=== PATIENT | male | born 1975 | race Caucasian/White ===

== ENCOUNTER 2017-07-10 15:00 | Inpatient (IN) | payer OTHER ==
[2017-07-10] MEDS ORDERED: ONDANSETRON 4 MG/2 ML VIAL IVP STA (17:18)
[2017-07-10] MEDS ORDERED: SODIUM CHLORIDE 0.9% 1,000 ML IV STA (17:18)
[2017-07-10] MEDS ORDERED: HYDROmorphone 1 MG/ML 1 ML SYRINGE IVP STA (17:18)
[2017-07-10 17:47] LABS: Basophils # (A) 0.1 k/uL (0-0.2); Basophils % (A) 1 %; Eosinophils # (A) 0.3 k/uL (0-0.7); Eosinophils % (A) 3 %; HGB 16.6 gm/dL (13.0-17.5); Lymphocytes # (A) 2.2 k/uL (1.0-4.8); Lymphocytes % (A) 18 %; MCH 30.7 pg (25.0-35.0); MCHC 32.5 g/dL (31.0-37.0); MCV 94.5 fL (80.0-100.0); Mean Platelet Volume 7.1; Monocytes # (A) 0.5 k/uL (0-1.0); Monocytes % (A) 4 %; Neutrophils # (A) 8.8 k/uL (1.3-7.7); Neutrophils % (A) 73 %; Platelet Count 385 k/uL (150-450); RBC 5.39 m/uL (4.30-5.90); RDW 13.5 % (11.5-15.5); WBC 12.1 k/uL (3.8-10.6)
[2017-07-10 17:49] LABS: Appearance,Urine Clear (Clear); Bilirubin,Urine Negative (Negative); Blood,Urine Negative (Negative); Color,Urine Light Yellow; Glucose,Urine (UA) Negative (Negative); Ketones,Urine Negative (Negative); Leukocyte Esterase,Urine Negative (Negative); Nitrite,Urine Negative (Negative); PH, Urine 5.5 (5.0-8.0); Protein,Urine Negative (Negative); Specific Gravity,Urine 1.003 (1.001-1.035); Urobilinogen,Urine <2.0 mg/dL (<2.0)
[2017-07-10] MEDS ORDERED: RX INFO: IV CONTRAST WAS GIVEN 1 EACH MISC MISCELLANE PRN (17:51)
[2017-07-10 18:01] LABS: ALT 26 U/L (21-72); AST 19 U/L (17-59); Albumin 4.3 g/dL (3.5-5.0); Alkaline Phosphatase 64 U/L (38-126); Amylase 209 U/L (30-110); Anion Gap 6 mmol/L; Blood Urea Nitrogen 16 mg/dL (9-20); Calcium 10.1 mg/dL (8.4-10.2); Carbon Dioxide 28 mmol/L (22-30); Chloride 105 mmol/L (98-107); Glucose 91 mg/dL (74-99); Lipase 558 U/L (23-300); Potassium 5.4 mmol/L (3.5-5.1); Sodium 139 mmol/L (137-145); Total Bilirubin 0.5 mg/dL (0.2-1.3)
--- NOTE | 2017-07-10 18:16 | XR ---
EXAMINATION TYPE: XR KUB DATE OF EXAM: 07/10/2017 HISTORY: Pain with blood in stool COMPARISON: 05/15/2016 TECHNIQUE: 2 upright views FINDINGS: The visualized lung bases and pleural spaces and cardiac silhouette are unremarkable. There is no pneumoperitoneum, and no pneumatosis. There is no bowel obstruction. No evident viscerome [place]. The skeletal structures and soft tissues are unremarkable as seen. IMPRESSION: NO ACUTE PROCESS.
--- NOTE | 2017-07-10 18:34 | ED ---
Abdominal Pain HPI - General Chief Complaint: Abdominal Pain Stated Complaint: abdominal pain Time Seen by Provider: 07/10/17 17:05 Source: patient Mode of arrival: ambulatory Limitations: no limitations - History of Present Illness Initial Comments: 41-year-old male patient presented to the emergency department today for evaluation of left-sided abdominal pain. Patient states that the pain radiates from his lower abdomen up into his left upper quadrant near his ribs. He states that he has had this pain since this morning. He states that he is very nauseated however has not vomited. States that the pain is a burning, hot type pain. States that he is also had blood in his stool today. She has been having blood in his stool intermittently over the last year. States that today was bright red blood. States it filled the bowl. He denies any fevers or chills with this. Denies any dizziness or weakness. Patient denies any recent rash, shortness breath, chest pain, diarrhea, constipation, back pain, numbness , tingling, dizziness, weakness, hematuria, dysuria, urinary urgency, urinary frequency, headache, visual changes, or any other complaints. Denies any alcohol use, states he recently stopped smoking. - Related Data Home Medications Medication Instructions Recorded Confirmed Ibuprofen [Motrin] 600 mg PO Q8HR PRN 07/10/17 07/10/17 Allergies Allergy/AdvReac Type Severity Reaction Status Date / Time No Known Allergies Allergy Verified 07/10/17 17:41 Review of Systems ROS Statement: Those systems with pertinent positive or pertinent negative responses have been documented in the HPI. ROS Other: All systems not noted in ROS Statement are negative. Past Medical History Past Medical History: GERD/Reflux Additional Past Medical History / Comment(s): Traumatic pneumothorax History of Any Multi-Drug Resistant Organisms: None Reported Additional Past Surgical History / Comment(s): Right sided chest tube; thoravent Past Anesthesia/Blood Transfusion Reactions: No Reported Reaction Past Psychological History: Anxiety, Depression Smoking Status: Current every day smoker Past Alcohol Use History: None Reported Past Drug Use History: Marijuana - Past Family History Mother Family Medical History: Cancer Father Family Medical History: Cancer General Exam Limitations: no limitations General appearance: alert, in no apparent distress, other (This is a well- developed, well-nourished adult male patient in no acute distress. Vital signs upon presentation were temperature 98.0F, pulse 79, respirations 18, blood pressure 121/75, pulse ox 98% on room air.) Eye exam: Present: normal appearance, PERRL, EOMI. Absent: scleral icterus, conjunctival injection, periorbital swelling ENT exam: Present: normal exam, normal oropharynx, mucous membranes moist Respiratory exam: Present: normal lung sounds bilaterally. Absent: respiratory distress, wheezes, rales, rhonchi, stridor Cardiovascular Exam: Present: regular rate, normal rhythm, normal heart sounds. Absent: systolic murmur, diastolic murmur, rubs, gallop, clicks GI/Abdominal exam: Present: soft, tenderness (Left lower quadrant and left upper quadrant tenderness), normal bowel sounds. Absent: distended, guarding, rebound, rigid Neurological exam: Present: alert, oriented X3, CN II-XII intact Psychiatric exam: Present: normal affect, normal mood Skin exam: Present: warm, dry, intact, normal color. Absent: rash Course Vital Signs 07/10/17 07/10/17 16:04 17:54 Temperature 98 F Pulse Rate 79 86 Respiratory 18 16 Rate Blood Pressure 121/75 128/80 O2 Sat by Pulse 98 97 Oximetry Medical Decision Making - Medical Decision Making 41-year-old male patient presents to the emergency department today for evaluation of the left-sided abdominal pain, nausea, and blood in stool. Physical examination did reveal some left-sided abdominal tenderness, midepigastric abdominal tenderness. I did perform a rectal exam however there is not a good sample stool to be tested. X-ray of the abdomen showed overall nonobstructive bowel gas pattern. CT of the abdomen and pelvis showed no acute process. Labs reviewed and did reveal a lipase of 578 and elevated amylase. Patient will be admitted for acute pancreatitis. Labs be rechecked in the morning. IV hydration and pain management will be provided. He is nothing by mouth. Spoke to Cristy Morrell NP-morgan who is admitting for Dr. Mchugh. GI has been consulted. - Lab Data Result diagrams: 07/10/17 17:30 07/10/17 17:30 Lab Results 07/10/17 07/10/17 07/10/17 Range/Units 17:30 17:30 17:30 WBC 12.1 H (3.8-10.6) k/uL RBC 5.39 (4.30-5.90) m/uL Hgb 16.6 (13.0-17.5) gm/dL Hct 51.0 (39.0-53.0) % MCV 94.5 (80.0-100.0) fL MCH 30.7 (25.0-35.0) pg MCHC 32.5 (31.0-37.0) g/dL RDW 13.5 (11.5-15.5) % Plt Count 385 (150-450) k/uL Neutrophils % 73 % Lymphocytes % 18 % Monocytes % 4 % Eosinophils % 3 % Basophils % 1 % Neutrophils # 8.8 H (1.3-7.7) k/uL Lymphocytes # 2.2 (1.0-4.8) k/uL Monocytes # 0.5 (0-1.0) k/uL Eosinophils # 0.3 (0-0.7) k/uL Basophils # 0.1 (0-0.2) k/uL Sodium 139 (137-145) mmol/L Potassium 5.4 H (3.5-5.1) mmol/L Chloride 105 (98-107) mmol/L Carbon Dioxide 28 (22-30) mmol/L Anion Gap 6 mmol/L BUN 16 (9-20) mg/dL Creatinine 0.88 (0.66-1.25) mg/dL Est GFR (MDRD) Af Amer >60 (>60 ml/min/1.73 sqM) Est GFR (MDRD) Non-Af >60 (>60 ml/min/1.73 sqM) Glucose 91 (74-99) mg/dL Calcium 10.1 (8.4-10.2) mg/dL Total Bilirubin 0.5 (0.2-1.3) mg/dL AST 19 (17-59) U/L ALT 26 (21-72) U/L Alkaline Phosphatase 64 (38-126) U/L Total Protein 7.0 (6.3-8.2) g/dL Albumin 4.3 (3.5-5.0) g/dL Amylase 209 H (30-110) U/L Lipase 558 H (23-300) U/L Urine Color Light Yellow Urine Appearance Clear (Clear) Urine pH 5.5 (5.0-8.0) Ur Specific [place] 1.003 (1.001-1.035) Urine Protein Negative (Negative) Urine Glucose (UA) Negative (Negative) Urine Ketones Negative (Negative) Urine Blood Negative (Negative) Urine Nitrite Negative (Negative) Urine Bilirubin Negative (Negative) Urine Urobilinogen <2.0 (<2.0) mg/dL Ur Leukocyte Esterase Negative (Negative) Stool Occult Blood (Negative) 07/10/17 Range/Units 19:07 WBC (3.8-10.6) k/uL RBC (4.30-5.90) m/uL Hgb (13.0-17.5) gm/dL Hct (39.0-53.0) % MCV (80.0-100.0) fL MCH (25.0-35.0) pg MCHC (31.0-37.0) g/dL RDW (11.5-15.5) % Plt Count (150-450) k/uL Neutrophils % % Lymphocytes % % Monocytes % % Eosinophils % % Basophils % % Neutrophils # (1.3-7.7) k/uL Lymphocytes # (1.0-4.8) k/uL Monocytes # (0-1.0) k/uL Eosinophils # (0-0.7) k/uL Basophils # (0-0.2) k/uL Sodium (137-145) mmol/L Potassium (3.5-5.1) mmol/L Chloride (98-107) mmol/L Carbon Dioxide (22-30) mmol/L Anion Gap mmol/L BUN (9-20) mg/dL Creatinine (0.66-1.25) mg/dL Est GFR (MDRD) Af Amer (>60 ml/min/1.73 sqM) Est GFR (MDRD) Non-Af (>60 ml/min/1.73 sqM) Glucose (74-99) mg/dL Calcium (8.4-10.2) mg/dL Total Bilirubin (0.2-1.3) mg/dL AST (17-59) U/L ALT (21-72) U/L Alkaline Phosphatase (38-126) U/L Total Protein (6.3-8.2) g/dL Albumin (3.5-5.0) g/dL Amylase (30-110) U/L Lipase (23-300) U/L Urine Color Urine Appearance (Clear) Urine pH (5.0-8.0) Ur Specific [place] (1.001-1.035) Urine Protein (Negative) Urine Glucose (UA) (Negative) Urine Ketones (Negative) Urine Blood (Negative) Urine Nitrite (Negative) Urine Bilirubin (Negative) Urine Urobilinogen (<2.0) mg/dL Ur Leukocyte Esterase (Negative) Stool Occult Blood Negative (Negative) - Radiology Data Radiology results: report reviewed, image reviewed 2 views of the abdomen show no pneumoperitoneum, and no pneumatosis. There is no bowel obstruction. No evidence of visceromegaly. The skeletal structures and soft tissues are unremarkable as seen. Impression by Dr. Willoughby shows no acute process. CT of the abdomen and pelvis with contrast was obtained, report was reviewed in its entirety. Impression by Dr. Willoughby shows no acute process. No CT correlation for the patient's left-sided abdominal pain with nausea and vomiting of blood in stool. Disposition Clinical Impression: Pancreatitis, GI bleed Disposition: ADMITTED IP TO THIS [facility] Condition: Serious Referrals: Jack Villasenor MD [Primary Care Provider] - 1-2 days Decision to Admit Reason: Admit from EC Decision Date: 07/10/17 Decision Time: 19:30
--- NOTE | 2017-07-10 18:53 | CT ---
EXAMINATION TYPE: CT abdomen pelvis w con DATE OF EXAM: 07/10/2017 COMPARISON: 02/05/2016 HISTORY: Left sided abdominal pain with nausea, vomiting and blood in stool. CT DLP: 1303.00 mGycm Automated exposure control for dose reduction was used. TECHNIQUE: Helical acquisition of images was performed from the lung bases through the pelvis. CONTRAST: Performed without Oral Contrast and with IV Contrast, patient injected with 100 mL of Omnipaque 300. FINDINGS: LUNG BASES: No significant abnormality is appreciated. LIVER/GB: No significant abnormality is appreciated. PANCREAS: No significant abnormality is seen. SPLEEN: No significant abnormality is seen. ADRENALS: No significant abnormality is seen. KIDNEYS: No significant abnormality is seen. FREE AIR: No free air is visualized. RETROPERITONEAL ADENOPATHY: None visualized REPRODUCTIVE ORGANS: No significant abnormality is seen URINARY BLADDER: No significant abnormality is seen. PELVIC ADENOPATHY: None visualized. OSSEOUS STRUCTURES: No significant abnormality is seen. BOWEL: No significant abnormality is seen. OTHER: The vasculature is negative. Extraperitoneal spaces of the abdomen and pelvis are negative. IMPRESSION: NO ACUTE PROCESS; NO CT CORRELATE FOR THE PATIENT'S LEFT-SIDED ABDOMINAL PAIN WITH NAUSEA AND VOMITIN G AND BLOOD IN STOOL
[2017-07-10] MEDS ORDERED: NALOXONE 0.4 MG/ML 1 ML VIAL IV PRN (19:27)
[2017-07-10] MEDS ORDERED: ONDANSETRON 4 MG/2 ML VIAL IVP PRN (19:27)
[2017-07-10] MEDS: SODIUM CHLORIDE 0.9% 1,000 ML IV SCH (20:42)
[2017-07-10] MEDS: HYDROmorphone 2 MG/ML 1 ML SYRINGE IVP PRN (21:04)
[2017-07-11] MEDS: HYDROmorphone 2 MG/ML 1 ML SYRINGE IVP PRN ×7 (01:03→23:10)
[2017-07-11 07:16] LABS: Basophils # (A) 0.2 k/uL (0-0.2); Basophils % (A) 2 %; Eosinophils # (A) 0.5 k/uL (0-0.7); Eosinophils % (A) 5 %; HCT 45.6 % (39.0-53.0); HGB 14.6 gm/dL (13.0-17.5); Lymphocytes # (A) 3.2 k/uL (1.0-4.8); Lymphocytes % (A) 34 %; MCH 30.9 pg (25.0-35.0); MCHC 32.1 g/dL (31.0-37.0); MCV 96.4 fL (80.0-100.0); Mean Platelet Volume 7.1; Monocytes # (A) 0.5 k/uL (0-1.0); Monocytes % (A) 5 %; Neutrophils # (A) 4.9 k/uL (1.3-7.7); Neutrophils % (A) 52 %; Platelet Count 322 k/uL (150-450); RBC 4.73 m/uL (4.30-5.90); RDW 13.6 % (11.5-15.5); WBC 9.4 k/uL (3.8-10.6)
[2017-07-11 07:22] LABS: ALT 26 U/L (21-72); AST 14 U/L (17-59); Albumin 3.2 g/dL (3.5-5.0); Alkaline Phosphatase 46 U/L (38-126); Anion Gap 5 mmol/L; Blood Urea Nitrogen 13 mg/dL (9-20); Calcium 8.9 mg/dL (8.4-10.2); Carbon Dioxide 28 mmol/L (22-30); Chloride 108 mmol/L (98-107); Glucose 78 mg/dL (74-99); Potassium 4.4 mmol/L (3.5-5.1); Sodium 141 mmol/L (137-145); Total Bilirubin 0.6 mg/dL (0.2-1.3); Total Protein 5.4 g/dL (6.3-8.2)
[2017-07-11 07:48] LABS: Lipase 2988 U/L (23-300)
[2017-07-11 07:50] LABS: Amylase 376 U/L (30-110)
[2017-07-11] MEDS: SODIUM CHLORIDE 0.9% 1,000 ML IV SCH ×4 (09:47→22:33)
--- NOTE | 2017-07-11 11:01 | P.CONS ---
History of Present Illness - Reason for Consult Consult date: 07/11/17 Pancreatitis Requesting physician: Chyna Mchugh - Chief Complaint Abdominal pain - History of Present Illness 41-year-old gentleman with no significant past medical or surgical history presents with acute abdominal pain mostly in the mid to upper abdomen extending to the left side. Pain came on suddenly yesterday morning awakened him from his sleep. Intermittent nausea no emesis. Additionally patient has been reporting intermittent blood-tinged stools for more than 6 months. Bowel movement 2 days ago with blood tinged even on toilet tissue. No aspirin. Occasional Motrin 800 mg as needed for chronic back pain but does not take on a daily basis. Denies melena or hematemesis. No fever or chills. Patient has had similar attacks of this type of pain in the past but not this severe. Intermittent indigestion occasional [id number] Zantac as needed. No history of peptic ulcer disease, EGD, or colonoscopy. CT abdomen and pelvis reported no significant abnormality of the liver gallbladder pancreas or spleen. Admission amylase 209 presently 376 per lipase 558 presently 2988. LFTs unremarkable. BUN 13. Creatinine 0.8. Hemoglobin 14.6. White count 12.1 presently 9.4. Stool occult blood negative. No history of documented pancreatitis or EtOH abuse no history of autoimmune disorders. No changes in medications. Review of Systems Constitutional: Denies fever, chills, sweats, weight gain, or loss. HEENT: Negative for migraines, blurred vision or loss, earaches, drainage, tinnitus, oral mucosal lesions, dysphagia, or odynophagia. Cardiac: Negative for chest pain, arrhythmias, or palpitation. Respiratory: Negative for shortness of breath, hemoptysis, cough, or sputum production. Gastrointestinal: See HPI for pertinent findings. Genitourinary: Negative for hematuria, urgency, frequency, polyuria, dysuria, or penile discharge. Musculoskeletal: Negative for muscle aches, swelling, arthritis, and arthralgias. Neurologic: Negative for stroke or TIA. Endocrine: Negative for thyroid problems. Skin: Negative for rash or itching. Psychiatric: Negative history for depression and anxiety Past Medical History Past Medical History: GERD/Reflux Additional Past Medical History / Comment(s): Traumatic pneumothorax History of Any Multi-Drug Resistant Organisms: None Reported Additional Past Surgical History / Comment(s): Right sided chest tube; thoravent Past Anesthesia/Blood Transfusion Reactions: No Reported Reaction Past Psychological History: Anxiety, Depression Smoking Status: Current every day smoker Past Alcohol Use History: None Reported Past Drug Use History: Marijuana Additional Drug Use History / Comment(s): patient states he smoke 4 joints a day. - Past Family History Mother Family Medical History: Cancer Father Family Medical History: Cancer Medications and Allergies Home Medications Medication Instructions Recorded Confirmed Type Ibuprofen [Motrin] 600 mg PO Q8HR PRN 07/10/17 07/10/17 History Allergies Allergy/AdvReac Type Severity Reaction Status Date / Time No Known Allergies Allergy Verified 07/10/17 17:41 Physical Exam Vitals: Vital Signs Temp Pulse Pulse Resp BP BP Pulse Ox 07/11/17 08:00 16 07/11/17 07:47 97.0 F L 57 L 16 118/75 99 07/11/17 00:15 97.7 F 57 L 16 116/77 98 07/11/17 00:00 57 L 16 07/10/17 22:00 63 16 07/10/17 21:00 97.4 F L 63 16 122/85 93 L 07/10/17 20:33 97.0 F L 63 16 123/79 98 07/10/17 19:45 98.7 F 65 18 124/78 100 07/10/17 17:54 86 16 128/80 97 07/10/17 16:04 98 F 79 18 121/75 98 Intake and Output 07/10/17 07/11/17 07/11/17 22:59 06:59 14:59 Intake Total 1599 900 Output Total 260 Balance 1599 640 Intake: Intake, IV Titration 1599 900 Amount Sodium Chloride 0.9% 1, 600 900 000 ml @ 150 mls/hr IV . Q6H40M [facility] Rx#:[id number] Sodium Chloride 0.9% 1, 999 000 ml @ 999 mls/hr IV . Q1H1M [facility] Rx#:[id number] Output: Urine 260 Other: Voiding Method Toilet Toilet Toilet # Voids 1 1 Weight 77.111 kg General appearance: The patient is alert, oriented, in no acute distress. HET: Head is normocephalic and atraumatic. Pupils are equal and reactive. Oropharynx is clear without lesions. Neck: Supple without lymphadenopathy. Trachea midline. Heart: S1 S2. Regular rate and rhythm. Lungs: No crackles or wheezes are heard. Abdomen: Soft, mild to moderate tenderness midepigastrium left upper quadrant, nondistended with bowel sounds. No peritoneal signs. No palpable organomegaly or masses. Extremities: Normal skin color and turgor. No cyanosis, rash, ulceration, clubbing, or edema. Radial and pedal pulses are 2/4 bilaterally. Neurological: No focal deficits. Strength and sensation are grossly intact. Results CBC & Chem 7: 07/11/17 06:27 07/11/17 06:27 Labs: Abnormal Lab Results - Last 24 Hours (Table) 07/10/17 07/10/17 07/11/17 Range/Units 17:30 17:30 06:27 WBC 12.1 H (3.8-10.6) k/uL Neutrophils # 8.8 H (1.3-7.7) k/uL Potassium 5.4 H (3.5-5.1) mmol/L Chloride 108 H (98-107) mmol/L AST 14 L (17-59) U/L Total Protein 5.4 L (6.3-8.2) g/dL Albumin 3.2 L (3.5-5.0) g/dL Amylase 209 H 376 H* (30-110) U/L Lipase 558 H 2988 H (23-300) U/L CT scan - abdomen: report reviewed (Dr. Mckoy) Assessment and Plan (1) Pancreatitis Narrative/Plan: Etiology unclear. CT imaging did not mention cholelithiasis. Possible autoimmune possible idiopathic possible penetrating peptic ulcer disease within the differential with reports of blood-tinged bowel movements. Current Visit: Yes Status: Acute Code(s): K85.90 - ACUTE PANCREATITIS WITHOUT NECROSIS OR INFECTION, UNSP SNOMED Code(s): 56450213 (2) Hematochezia Narrative/Plan: Possible perirectal possible colonic possible upper GI source Current Visit: Yes Status: Acute Code(s): K92.1 - MELENA SNOMED Code(s): 140448297 (3) GI bleed Current Visit: Yes Status: Acute Code(s): K92.2 - GASTROINTESTINAL HEMORRHAGE, UNSPECIFIED SNOMED Code(s): 29246936 Plan: 1. IV hydration normal saline 150 mL an hour. Ultrasound abdomen today. 2. Protonix 40 mg IV every 12. 3. Will obtain a triglyceride level, CHIN, and IgG subclass 1-4. 4. Nothing by mouth except medications few ice chips. 5. EGD was discussed planned in the next 24-48 hours contingent on improvement of pancreatic enzymes. 6. In regards to reported hematochezia colonoscopy was discussed but further recommendations forthcoming after upper endoscopy is completed. The community support professional has discussed the risks, benefits and alternative therapies for the above-mentioned procedure and for both sedation/analgesia as well as necessary blood product administration, if indicated, as they pertain to this patient. The patient has indicated understanding and acceptance of the risks and procedures discussed. Thank you for this kind referral and the opportunity to participate in the care of your patient. This consultation was discussed with Dr. Mckoy. The impression and plan of care have been directed as dictated.
--- NOTE | 2017-07-11 11:54 | US ---
EXAMINATION TYPE: US abdomen limited DATE OF EXAM: 07/11/2017 COMPARISON: CT abdomen and pelvis from yesterday. CLINICAL HISTORY: pancreatitis. epigastric pain EXAM MEASUREMENTS: Liver Length: 13.6 cm Gallbladder Wall: 0.3 cm CBD: 0.3 cm Right Kidney: 10.4 x 4.7 x 4.9 cm Pancreas: not visualized due to midline bowel gas Liver: wnl Gallbladder: No stones seen Evidence for sonographic Doty's sign: No CBD: wnl Right Kidney: No hydronephrosis or masses seen IMPRESSION: Suboptimal evaluation of pancreas otherwise unremarkable study. Pancreas noted appeared w ithin normal limits on CT one day earlier.
[2017-07-11] MEDS: PANTOPRAZOLE 40 MG/10 ML VIAL IVP SCH ×2 (12:52→22:25)
[2017-07-11] MEDS ORDERED: VANCOMYCIN 1,000 MG in SODIUM CHLORIDE 0.9% 250 ML IVPB ONE (15:22)
[2017-07-11] MEDS ORDERED: VANCOMYCIN IV PER PHARMACY 1 EACH MISC MISCELLANE PRN (15:23)
[2017-07-11] MEDS: VANCOMYCIN 1,500 MG in SODIUM CHLORIDE 0.9% 250 ML IVPB SCH ×2 (16:08→23:10)
--- NOTE | 2017-07-11 17:32 | P.HPIM ---
History of Present Illness 41-year-old gentleman with no significant past medical or surgical history presents with acute abdominal pain mostly in the mid to upper abdomen extending to the left side. Pain came on suddenly yesterday morning awakened him from his sleep. Intermittent nausea no emesis. Patient does take ibuprofen and patient denied any blood in the stools yesterday and today day before patient had a miguel blood in the stools although his hemoglobin remained stable at around 14 patient had some hemodiluted affect and his hemoglobin did drop from 16-14 yesterday patient had elevated lipase because of which patient was admitted for pancreatitis patient ultrasound is negative for any cholelithiasis gastroneurology evaluated the patient patient is on Protonix in the recommending upper GI endoscopy and colonoscopy tomorrow morning. Patient is complaining of on and off nausea for few days Review of Systems REVIEW OF SYSTEMS: CONSTITUTIONAL: No fever, no malaise, no fatigue. HEENT: No recent visual problems or hearing problems. Denied any sore throat. CARDIOVASCULAR: No chest pain, orthopnea, PND, no palpitations, no syncope. PULMONARY: No shortness of breath, no cough, no hemoptysis. GASTROINTESTINAL: As mentioned in HPI NEUROLOGICAL: No headaches, no weakness, no numbness. HEMATOLOGICAL: Denies any bleeding or petechiae. GENITOURINARY: Denies any burning micturition, frequency, or urgency. MUSCULOSKELETAL/RHEUMATOLOGICAL: Denies any joint pain, swelling, or any muscle pain. ENDOCRINE: Denies any polyuria or polydipsia. The rest of the 14-point review of systems is negative. Past Medical History Past Medical History: GERD/Reflux Additional Past Medical History / Comment(s): Traumatic pneumothorax History of Any Multi-Drug Resistant Organisms: None Reported Additional Past Surgical History / Comment(s): Right sided chest tube; thoravent Past Anesthesia/Blood Transfusion Reactions: No Reported Reaction Past Psychological History: Anxiety, Depression Smoking Status: Current every day smoker Past Alcohol Use History: None Reported Past Drug Use History: Marijuana Additional Drug Use History / Comment(s): patient states he smoke 4 joints a day. - Past Family History Mother Family Medical History: Cancer Father Family Medical History: Cancer Medications and Allergies Home Medications Medication Instructions Recorded Confirmed Type Ibuprofen [Motrin] 600 mg PO Q8HR PRN 07/10/17 07/10/17 History Allergies Allergy/AdvReac Type Severity Reaction Status Date / Time No Known Allergies Allergy Verified 07/10/17 17:41 Physical Exam Vitals: Vital Signs Temp Pulse Pulse Resp BP BP Pulse Ox 07/11/17 14:44 97.6 F 54 L 16 134/91 98 07/11/17 08:00 16 07/11/17 07:47 97.0 F L 57 L 16 118/75 99 07/11/17 00:15 97.7 F 57 L 16 116/77 98 07/11/17 00:00 57 L 16 07/10/17 22:00 63 16 07/10/17 21:00 97.4 F L 63 16 122/85 93 L 07/10/17 20:33 97.0 F L 63 16 123/79 98 07/10/17 19:45 98.7 F 65 18 124/78 100 07/10/17 17:54 86 16 128/80 97 Intake and Output 07/11/17 07/11/17 07/11/17 06:59 14:59 22:59 Intake Total 900 1200 Output Total 260 Balance 640 1200 Intake: IV 1200 Sodium Chloride 0.9% 1, 1200 000 ml @ 150 mls/hr IV . Q6H40M [facility] Rx#:[id number] Intake, IV Titration 900 Amount Sodium Chloride 0.9% 1, 900 000 ml @ 150 mls/hr IV . Q6H40M [facility] Rx#:[id number] Output: Urine 260 Other: Voiding Method Toilet Toilet # Voids 1 2 PHYSICAL EXAMINATION: GENERAL: The patient is alert and oriented x3, not in any acute distress. Well developed, well nourished. HEENT: Pupils are round and equally reacting to light. EOMI. No scleral icterus. No conjunctival pallor. Normocephalic, atraumatic. No pharyngeal erythema. No thyromegaly. CARDIOVASCULAR: S1 and S2 present. No murmurs, rubs, or gallops. PULMONARY: Chest is clear to auscultation, no wheezing or crackles. ABDOMEN: Soft, nontender, nondistended, normoactive bowel sounds. No palpable organomegaly. MUSCULOSKELETAL: No joint swelling or deformity. EXTREMITIES: No cyanosis, clubbing, or pedal edema. NEUROLOGICAL: Gross neurological examination did not reveal any focal deficits. SKIN: No rashes. Results CBC & Chem 7: 07/11/17 06:27 07/11/17 06:27 Labs: Abnormal Lab Results - Last 24 Hours (Table) 07/10/17 07/10/17 07/11/17 Range/Units 17:30 17:30 06:27 WBC 12.1 H (3.8-10.6) k/uL Neutrophils # 8.8 H (1.3-7.7) k/uL Potassium 5.4 H (3.5-5.1) mmol/L Chloride 108 H (98-107) mmol/L AST 14 L (17-59) U/L Total Protein 5.4 L (6.3-8.2) g/dL Albumin 3.2 L (3.5-5.0) g/dL Amylase 209 H 376 H* (30-110) U/L Lipase 558 H 2988 H (23-300) U/L Microbiology - Last 24 Hours (Table) 07/10/17 17:30 Blood Culture Gram Stain - Preliminary Blood 07/10/17 17:30 Blood Culture - Final Blood Thrombosis Risk Factor Assmnt - Choose All That Apply Any of the Below Risk Factors Present?: No Other Risk Factors: No Thrombosis Risk Factor Assessment Level: Very Low Risk Assessment and Plan Plan: -Pancreatitis: Idiopathic in nature patient is not an alcoholic. -Possibility of peptic ulcer disease for which patient will undergo upper GI endoscopy -GI bleed: Mostly upper
[2017-07-12] MEDS: HYDROmorphone 2 MG/ML 1 ML SYRINGE IVP PRN ×6 (02:30→22:44)
[2017-07-12] MEDS: SODIUM CHLORIDE 0.9% 1,000 ML IV SCH ×3 (02:31→17:16)
[2017-07-12 06:57] LABS: Basophils # (A) 0.1 k/uL (0-0.2); Basophils % (A) 1 %; Eosinophils # (A) 0.4 k/uL (0-0.7); Eosinophils % (A) 4 %; HCT 42.6 % (39.0-53.0); HGB 14.1 gm/dL (13.0-17.5); Lymphocytes # (A) 2.5 k/uL (1.0-4.8); Lymphocytes % (A) 28 %; MCH 30.7 pg (25.0-35.0); MCHC 33.1 g/dL (31.0-37.0); MCV 92.7 fL (80.0-100.0); Mean Platelet Volume 7.1; Monocytes # (A) 0.4 k/uL (0-1.0); Monocytes % (A) 5 %; Neutrophils # (A) 5.4 k/uL (1.3-7.7); Neutrophils % (A) 61 %; Platelet Count 320 k/uL (150-450); RDW 13.1 % (11.5-15.5); WBC 8.8 k/uL (3.8-10.6)
[2017-07-12 07:11] LABS: ALT 23 U/L (21-72); AST 15 U/L (17-59); Albumin 3.2 g/dL (3.5-5.0); Alkaline Phosphatase 47 U/L (38-126); Amylase 95 U/L (30-110); Anion Gap 4 mmol/L; Blood Urea Nitrogen 10 mg/dL (9-20); Carbon Dioxide 28 mmol/L (22-30); Chloride 108 mmol/L (98-107); Glucose 77 mg/dL (74-99); Lipase 100 U/L (23-300); Potassium 4.6 mmol/L (3.5-5.1); Sodium 140 mmol/L (137-145); Total Bilirubin 0.8 mg/dL (0.2-1.3); Total Protein 5.4 g/dL (6.3-8.2)
[2017-07-12] MEDS: VANCOMYCIN 1,500 MG in SODIUM CHLORIDE 0.9% 250 ML IVPB SCH ×3 (09:10→23:43)
[2017-07-12] MEDS: PANTOPRAZOLE 40 MG/10 ML VIAL IVP SCH ×2 (09:10→22:43)
[2017-07-12 10:32] LABS: IgG Subclass 4 26.3 mg/dL (3.0-175.0)
--- NOTE | 2017-07-12 12:12 | P.PN ---
Subjective Progress Note Date: 07/12/17 Principal diagnosis: Acute pancreatitis 41-year-old male admitted with acute pancreatitis intermittent rectal bleeding of unclear etiology. CHIN screen negative. Pancreatic enzymes normalized. LFTs unremarkable. Abdominal pain improved. Blood cultures preliminary colitis was negative staph. Afebrile. Triglycerides 137. Ultrasound abdomen no stones. Pancreas appeared normal Objective - Vital Signs Vital signs: Vital Signs Temp 98.2 F 07/12/17 07:25 Pulse 54 L 07/12/17 07:25 Resp 16 07/12/17 08:00 BP 125/83 07/12/17 07:25 Pulse Ox 99 07/12/17 07:25 Intake & Output 07/11/17 07/12/17 07/12/17 18:59 06:59 18:59 Intake Total 1200 2400 Output Total 375 Balance 1200 2024 Intake: IV 1200 2400 Sodium Chloride 0.9% 1, 1200 2400 000 ml @ 150 mls/hr IV . Q6H40M [facility] Rx#:[id number] Output: Urine 375 Other: Voiding Method Toilet Toilet Urinal Urinal # Voids 2 3 - Exam General appearance: The patient is alert, oriented, in no acute distress. HET: Head is normocephalic and atraumatic. Pupils are equal and reactive. Oropharynx is clear without lesions. Neck: Supple without lymphadenopathy. Trachea midline. Heart: S1 S2. Regular rate and rhythm. Lungs: No crackles or wheezes are heard. Abdomen: Soft, mild diffuse tenderness upper abdomen, nondistended with bowel sounds. No peritoneal signs. No palpable organomegaly or masses. Extremities: Normal skin color and turgor. No cyanosis, rash, ulceration, clubbing, or edema. Radial and pedal pulses are 2/4 bilaterally. Neurological: No focal deficits. Strength and sensation are grossly intact. - Labs CBC & Chem 7: 07/12/17 06:36 07/12/17 06:36 Labs: Abnormal Lab Results - Last 24 Hours (Table) 07/12/17 Range/Units 06:36 Chloride 108 H (98-107) mmol/L AST 15 L (17-59) U/L Total Protein 5.4 L (6.3-8.2) g/dL Albumin 3.2 L (3.5-5.0) g/dL Microbiology - Last 24 Hours (Table) 07/10/17 17:30 Blood Culture Gram Stain - Preliminary Blood Blood Culture - Preliminary Coagulase Negative Staph 07/10/17 17:30 Blood Culture - Final Blood Assessment and Plan (1) Pancreatitis Narrative/Plan: Etiology unclear. CT imaging did not mention cholelithiasis. Possible autoimmune possible idiopathic possible penetrating peptic ulcer disease within the differential with reports of blood-tinged bowel movements. Current Visit: Yes Status: Acute Code(s): K85.90 - ACUTE PANCREATITIS WITHOUT NECROSIS OR INFECTION, UNSP SNOMED Code(s): 89607708 (2) Hematochezia Narrative/Plan: Possible perirectal possible colonic possible upper GI source Current Visit: Yes Status: Acute Code(s): K92.1 - MELENA SNOMED Code(s): 746524317 (3) GI bleed Current Visit: Yes Status: Acute Code(s): K92.2 - GASTROINTESTINAL HEMORRHAGE, UNSPECIFIED SNOMED Code(s): 58175471 Plan: 1. Will initiate low-fat diet patient is requesting diet and is hungry. 2. EGD evaluation tomorrow rule out peptic ulcer disease. 3. Continue supportive measures GI prophylaxis. The medication assistant has discussed the risks, benefits and alternative therapies for the above-mentioned procedure and for both sedation/analgesia as well as necessary blood product administration, if indicated, as they pertain to this patient. The patient has indicated understanding and acceptance of the risks and procedures discussed. Assessment and plan a care discussed with Dr. Mckoy
[2017-07-13] MEDS: SODIUM CHLORIDE 0.9% 1,000 ML IV SCH ×2 (02:26→11:29)
[2017-07-13] MEDS: HYDROmorphone 2 MG/ML 1 ML SYRINGE IVP PRN ×3 (05:08→15:11)
[2017-07-13] MEDS ORDERED: VANCOMYCIN TROUGH DUE 1 EACH MISC MISCELLANE ONE (07:00)
[2017-07-13 07:43] LABS: Anion Gap 8 mmol/L; Blood Urea Nitrogen 12 mg/dL (9-20); Calcium 8.9 mg/dL (8.4-10.2); Carbon Dioxide 26 mmol/L (22-30); Chloride 107 mmol/L (98-107); Glucose 83 mg/dL (74-99); Potassium 4.3 mmol/L (3.5-5.1); Sodium 141 mmol/L (137-145)
[2017-07-13] MEDS: PANTOPRAZOLE 40 MG/10 ML VIAL IVP SCH (07:47)
[2017-07-13] MEDS: VANCOMYCIN 1,500 MG in SODIUM CHLORIDE 0.9% 250 ML IVPB SCH (07:48)
[2017-07-13 13:38] VITALS: RESP 16
[2017-07-13] MEDS ORDERED: MIDAZOLAM 2 MG/2 ML VIAL ONE (14:16)
[2017-07-13] MEDS ORDERED: PROPOFOL 10 MG/ML 20 ML VIAL IV ONE (14:16)
[2017-07-13] MEDS ORDERED: fentaNYL (PF) 50 MCG/ML 2 ML AMP ONE (14:16)
[2017-07-13] MEDS ORDERED: IV FLUID CONTINUATION 900 ML IV ONE (14:19)
--- NOTE | 2017-07-13 14:29 | P.PCN ---
Date of Procedure: 07/13/17 Procedure(s) Performed: BRIEF HISTORY: Patient is a 41-year-old, pleasant, white male, admitted to the hospital with acute pancreatitis. He presented with acute onset of severe epigastric pain radiating to the left upper quadrant area. He was noted to have elevated amylase and lipase. No history of alcohol use. CT of the abdomen was unremarkable. He is scheduled for an upper endoscopy to rule out peptic ulcer disease.. PROCEDURE PERFORMED: Esophagogastroduodenoscopy with biopsy. PREOPERATIVE DIAGNOSIS: Epigastric pain/acute pancreatitis. IV sedation per anesthesia. PROCEDURE: After informed consent was obtained, the patient was brought into the endoscopy unit. IV sedation was administered by Anesthesia under continuous monitoring. Initially the Olympus GIF-140 video endoscope was inserted into the mouth. Esophagus intubated without any difficulty. It was gradually advanced into the stomach and duodenum and carefully examined. The bulb and the second part of the duodenum appeared normal. There was mild patchy erythema noted in the bulb of the duodenum consistent with duodenitis. The scope at this time was withdrawn to the stomach, adequately insufflated with air, and upon careful examination, mucosa of the antrum, had mild gastritis and biopsies were done from this area. The body, cardia and the fundus appeared normal. The scope was then withdrawn into the esophagus. Small sliding Hiatal hernia noted. The GE junction was located at 39 cm from the incisors. The esophagus appeared normal. There were no erosions or ulcerations seen and the patient tolerated the procedure well. IMPRESSION: 1. Mild antral gastritis and duodenitis but no evidence of peptic ulcer disease. 2. Small hiatal hernia. RECOMMENDATIONS: The findings of this examination were discussed with the patient. At this time to follow with the biopsy results and diet will be advance as tolerated.
[2017-07-13 15:01] VITALS: BP 130/84; PULSE 64; TEMP 97
[2017-07-13] MEDS ORDERED: VANCOMYCIN 1,250 MG in SODIUM CHLORIDE 0.9% 250 ML IVPB SCH (16:00)
--- NOTE | 2017-07-13 17:34 | P.PN ---
Subjective Progress Note Date: 07/12/17 Progress note being dictated for Dr. Ocampo. Interval history:41-year-old gentleman with no significant past medical or surgical history presents with acute abdominal pain mostly in the mid to upper abdomen extending to the left side. Pain came on suddenly yesterday morning awakened him from his sleep. Intermittent nausea no emesis. Patient does take ibuprofen and patient denied any blood in the stools yesterday and today day before patient had a miguel blood in the stools although his hemoglobin remained stable at around 14 patient had some hemodiluted affect and his hemoglobin did drop from 16-14 yesterday patient had elevated lipase because of which patient was admitted for pancreatitis patient ultrasound is negative for any cholelithiasis gastroneurology evaluated the patient patient is on Protonix in the recommending upper GI endoscopy and colonoscopy tomorrow morning. Patient is complaining of on and off nausea for few days Review of Systems REVIEW OF SYSTEMS: CONSTITUTIONAL: No fever, no malaise, no fatigue. HEENT: No recent visual problems or hearing problems. Denied any sore throat. CARDIOVASCULAR: No chest pain, orthopnea, PND, no palpitations, no syncope. PULMONARY: No shortness of breath, no cough, no hemoptysis. GASTROINTESTINAL: As mentioned in HPI NEUROLOGICAL: No headaches, no weakness, no numbness. HEMATOLOGICAL: Denies any bleeding or petechiae. GENITOURINARY: Denies any burning micturition, frequency, or urgency. MUSCULOSKELETAL/RHEUMATOLOGICAL: Denies any joint pain, swelling, or any muscle pain. ENDOCRINE: Denies any polyuria or polydipsia. The rest of the 14-point review of systems is negative. 07/12/2017 maintained on IV fluid hydration. abdominal pain improving. Requesting diet advancement. Afebrile. blood cultures reporting coagulase- negative staph. Pancreatic enzymes normalized, LFTs unremarkable. Objective - Vital Signs Vital signs: Vital Signs Temp 98.3 F 07/12/17 15:00 Pulse 67 07/12/17 15:00 Resp 16 07/12/17 15:00 BP 147/86 07/12/17 15:00 Pulse Ox 99 07/12/17 15:00 Intake & Output 07/11/17 07/12/17 07/12/17 18:59 06:59 18:59 Intake Total 1200 2400 1200 Output Total 375 Balance 1200 5 1200 Intake: IV 1200 2400 1200 Sodium Chloride 0.9% 1, 1200 2400 1200 000 ml @ 150 mls/hr IV . Q6H40M [facility] Rx#:[id number] Output: Urine 375 Other: Voiding Method Toilet Toilet Urinal Urinal # Voids 2 3 1 - Exam GENERAL: The patient is alert and oriented x3, not in any acute distress. Well developed, well nourished. HEENT: Pupils are round and equally reacting to light. EOMI. No scleral icterus. No conjunctival pallor. Normocephalic, atraumatic. No pharyngeal erythema. No thyromegaly. CARDIOVASCULAR: S1 and S2 present. No murmurs, rubs, or gallops. PULMONARY: Chest is clear to auscultation, no wheezing or crackles. ABDOMEN: Soft, diffuse upper abdominal tenderness, nondistended, normoactive bowel sounds. No palpable organomegaly. MUSCULOSKELETAL: No joint swelling or deformity. EXTREMITIES: No cyanosis, clubbing, or pedal edema. NEUROLOGICAL: Gross neurological examination did not reveal any focal deficits. SKIN: No rashes. - Labs CBC & Chem 7: 07/12/17 06:36 07/13/17 06:28 Labs: Abnormal Lab Results - Last 24 Hours (Table) 07/11/17 07/12/17 Range/Units 06:27 06:36 Chloride 108 H (98-107) mmol/L AST 15 L (17-59) U/L Total Protein 5.4 L (6.3-8.2) g/dL Albumin 3.2 L (3.5-5.0) g/dL IgG2 140.0 L (169.0-640.0) mg/dL Microbiology - Last 24 Hours (Table) 07/10/17 17:30 Blood Culture Gram Stain - Preliminary Blood Blood Culture - Preliminary Coagulase Negative Staph 07/10/17 17:30 Blood Culture - Final Blood Assessment and Plan Assessment: -Pancreatitis: Idiopathic in nature patient is not an alcoholic. -Possibility of peptic ulcer disease for which patient will undergo upper GI endoscopy -GI bleed: Mostly upper Plan: Continue on current medication regime ,PPI,monitoring. Diet advanced as per GI.Evaluated by GI and patient is scheduled for EGD tomorrow. The impression and plan of care has been dictated as directed. : I performed a history and examination of this patient, discussed the same with the dictator. I agree with the dictator's note ,documented as a scribe. Any additional findings or plans will be noted.
--- NOTE | 2017-07-13 17:47 | P.DS ---
Providers Date of admission: 07/10/17 19:30 Expected date of discharge: 07/13/17 Attending physician: Chyna Ocampo Consults: 07/10/17 19:27 Consult Physician Stat Consulting Provider: Sushma Mckoy Consult Reason/Comments: Abdominal Pain; GI bleed Do you want consulting provider notified?: Yes Primary care physician: Hamilton Santiago Hospital Course: Final Diagnoses: -Pancreatitis: Idiopathic in nature patient is not an alcoholic. -Mild antral gastritis and duodenitis, no evidence of peptic ulcer disease. Small hiatal hernia. Biopsies obtained -GI bleed: Mostly upper Hospital course:41-year-old gentleman with no significant past medical or surgical history presents with acute abdominal pain mostly in the mid to upper abdomen extending to the left side. Pain came on suddenly yesterday morning awakened him from his sleep. Intermittent nausea no emesis. Patient does take ibuprofen and patient denied any blood in the stools yesterday and today day before patient had a miguel blood in the stools although his hemoglobin remained stable at around 14 patient had some hemodiluted affect and his hemoglobin did drop from 16-14 yesterday patient had elevated lipase because of which patient was admitted for pancreatitis. CT of abdomen and pelvis reporting no acute process. maintained on IV fluid hydration. Afebrile. Blood cultures reporting coagulase-negative staph. Pancreatic enzymes normalized, LFTs unremarkable. Evaluated by GI, underwent EGD and colonoscopy reporting mild antral gastritis and duodenitis but no evidence of peptic ulcer disease, small hiatal hernia, biopsies obtained. Significant clinical improvement.Patient has been cleared for discharge by GI after tolerating dinner tonight. Patient will be discharged home in a stable condition with guarded prognosis. Physical exam:VSS, cardiovascular regular S1 and S2, no edema, pulmonary diminished with no crackles, no wheezes, abdomen diffuse mild upper abdominal tenderness, positive bowel sounds, no guarding, no rigidity, no peritoneal signs , psychiatry alert and oriented times treatment and affect normal. No focal deficits. The impression and plan of care has been dictated as directed. : I performed a history and examination of this patient, discussed the same with the dictator. I agree with the dictator's note ,documented as a scribe. Any additional findings or plans will be noted. Patient Condition at Discharge: Stable Plan - Discharge Summary Discharge Rx Participant: Yes New Discharge Prescriptions: No Action Ibuprofen [Motrin] 600 mg PO Q8HR PRN PRN Reason: Pain Discharge Medication List Ibuprofen [Motrin] 600 mg PO Q8HR PRN 07/10/17 [History] Follow up Appointment(s)/Referral(s): Jack Villasenor MD [Primary Care Provider] - 3 Days Sushma Mckoy MD [STAFF PHYSICIAN] - 2 Weeks Ambulatory/Diagnostic Orders: Complete Blood Count w/diff [LAB.AMB] Time Frame: 3 Days, Location: Determined By Patient Activity/Diet/Wound Care/Special Instructions: after tolerating dinner, pending GI clearance Diet soft bland Activity: Limited until follow up
== END 2017-07-13 19:35 | disposition home or self-care (01) | DRG 438 ==
LOC: EC 15:00 → OBSVTOIN 19:30 → 3SUR 19:30
PROVIDERS: ADMIT Hospitalist; ATTEND Hospitalist
PROC: 0DB68ZX Excision of Stomach, Via Natural or Artificial Opening Endoscopic, Diagnostic (ICD-10-PCS; principal; 2017-07-13 14:15)
DX: K85.90 Acute pancreatitis without necrosis or infection, unspecified (principal); K29.81 Duodenitis with bleeding; K29.51 Unspecified chronic gastritis with bleeding; F17.200 Nicotine dependence, unspecified, uncomplicated; K44.9 Diaphragmatic hernia without obstruction or gangrene; Z80.9 Family history of malignant neoplasm, unspecified; Z79.1 Long term (current) use of non-steroidal anti-inflammatories (NSAID); Z86.59 Personal history of other mental and behavioral disorders
CPT/HCPCS: 36415; 43239; 74018; 74177; 76705; 80048; 80053; 80202; 81003; 82150; 82272; 82787; 83690; 84478; 85025; 86038; 87040; 88305; 88342; 96361; 96374; 96375; 99285

== ENCOUNTER 2017-07-16 12:24 | Emergency (ER) | payer OTHER ==
[2017-07-16] MEDS ORDERED: SODIUM CHLORIDE 0.9% 1,000 ML IV STA (13:46)
[2017-07-16] MEDS ORDERED: PANTOPRAZOLE 40 MG/10 ML VIAL IVP STA (13:47)
[2017-07-16 14:09] LABS: Appearance,Urine Clear (Clear); Basophils # (A) 0.2 k/uL (0-0.2); Basophils % (A) 2 %; Bilirubin,Urine Negative (Negative); Blood,Urine Negative (Negative); Color,Urine Colorless; Eosinophils # (A) 0.5 k/uL (0-0.7); Eosinophils % (A) 5 %; Glucose,Urine (UA) Negative (Negative); HCT 48.1 % (39.0-53.0); HGB 16.2 gm/dL (13.0-17.5); Ketones,Urine Negative (Negative); Leukocyte Esterase,Urine Negative (Negative); Lymphocytes # (A) 2.3 k/uL (1.0-4.8); Lymphocytes % (A) 20 %; MCH 31.3 pg (25.0-35.0); MCHC 33.7 g/dL (31.0-37.0); MCV 92.8 fL (80.0-100.0); Monocytes # (A) 0.6 k/uL (0-1.0); Monocytes % (A) 5 %; Neutrophils # (A) 7.7 k/uL (1.3-7.7); Neutrophils % (A) 67 %; Nitrite,Urine Negative (Negative); PH, Urine 6.5 (5.0-8.0); Platelet Count 373 k/uL (150-450); Protein,Urine Negative (Negative); RBC 5.18 m/uL (4.30-5.90); RDW 12.4 % (11.5-15.5); Specific Gravity,Urine 1.001 (1.001-1.035); Urobilinogen,Urine <2.0 mg/dL (<2.0); WBC 11.4 k/uL (3.8-10.6)
--- NOTE | 2017-07-16 14:13 | ED ---
General Adult HPI - General Chief complaint: Abdominal Pain Stated complaint: Abd Pain-Post Op Time Seen by Provider: 07/16/17 13:38 Source: patient, RN notes reviewed, old records reviewed Mode of arrival: ambulatory Limitations: no limitations - History of Present Illness Initial comments: Patient is a 41-year-old male who presents emergency room today with complaint of abdominal pain. Patient does admit to pain increased over the last 2 days. He doesn't that he was recently seen in the hospital for pancreatitis. Patient did have a colonoscopy. Patient states symptoms are consistent with pain that is experiencing on last admission. Patient does admit to nausea and vomiting. He does admit that his blood mixed with the emesis. Patient denies any other complaints or symptoms. Patient denies any recent fever, chills, shortness of breath, chest pain, back pain, numbness or tingling, dysuria or hematuria, constipation or diarrhea, headaches or visual changes, or any other complaints. - Related Data Home Medications Medication Instructions Recorded Confirmed Pantoprazole Sodium [Protonix] 40 mg PO DAILY 07/16/17 07/16/17 Previous Rx's Medication Instructions Recorded Pantoprazole Sodium [Protonix] 40 mg PO DAILY #10 tablet. 07/16/17 Allergies Allergy/AdvReac Type Severity Reaction Status Date / Time No Known Allergies Allergy Verified 07/16/17 14:26 Review of Systems ROS Statement: Those systems with pertinent positive or pertinent negative responses have been documented in the HPI. ROS Other: All systems not noted in ROS Statement are negative. Past Medical History Past Medical History: GERD/Reflux Additional Past Medical History / Comment(s): Traumatic pneumothorax History of Any Multi-Drug Resistant Organisms: None Reported Additional Past Surgical History / Comment(s): Right sided chest tube; thoravent Past Anesthesia/Blood Transfusion Reactions: No Reported Reaction Past Psychological History: Anxiety, Depression Smoking Status: Current every day smoker Past Alcohol Use History: Rare Past Drug Use History: Marijuana - Past Family History Mother Family Medical History: Cancer Father Family Medical History: Cancer General Exam - General Exam Comments Initial Comments: General: The patient is awake and alert, in no distress, and does not appear acutely ill. Eye: Pupils are equal, round and reactive to light, extra-ocular movements are intact. No nystagmus. There is normal conjunctiva bilaterally. No signs of icterus. Ears, nose, mouth and throat: There are moist mucous membranes and no oral lesions. Neck: The neck is supple, there is no tenderness or JVD. Cardiovascular: There is a regular rate and rhythm. No murmur, rub or gallop is appreciated. Respiratory: Lungs are clear to auscultation, respirations are non-labored, breath sounds are equal. No wheezes, stridor, rales, or rhonchi. Gastrointestinal: Normal appearance abdomen. Normal bowel sounds. Soft on palpation. Patient does have tenderness in the epigastric and left upper quadrant. No rebound tenderness or guarding. Musculoskeletal: Normal ROM, no tenderness. Strength 5/5. Sensation intact. Pulses equal bilaterally 2+. Neurological: A&O x 3. CN II-XII intact, There are no obvious motor or sensory deficits. Coordination appears grossly intact. Speech is normal. Skin: Skin is warm and dry and no rashes or lesions are noted. Psychiatric: Cooperative, appropriate mood & affect, normal judgment. Limitations: no limitations Course Vital Signs 07/16/17 13:22 Temperature 97.1 F L Pulse Rate 90 Respiratory 20 Rate Blood Pressure 134/84 O2 Sat by Pulse 99 Oximetry Medical Decision Making - Medical Decision Making Case discussed in detail with attending physician Dr. Harrison. Patient reexamined at this time shows no signs of distress resting comfortably. Patient labs been reviewed shows improvement from previous visit. Patient's pain improved at this time. Patient's discharge summary from 2 days ago was reviewed showing the patient should be on Protonix was given dose here in the emergency room he states he has not Filled over the weekend was just relaxing. He is unsure with a prescription is. Will be given a prescription to continue at home as well as follow-up to suggest specialist later in the week. Advised return if any symptoms increase worsen or for new concerns. - Lab Data Result diagrams: 07/16/17 13:50 07/16/17 13:50 Lab Results 07/16/17 07/16/17 07/16/17 Range/Units 13:50 13:50 13:50 WBC 11.4 H (3.8-10.6) k/uL RBC 5.18 (4.30-5.90) m/uL Hgb 16.2 (13.0-17.5) gm/dL Hct 48.1 (39.0-53.0) % MCV 92.8 (80.0-100.0) fL MCH 31.3 (25.0-35.0) pg MCHC 33.7 (31.0-37.0) g/dL RDW 12.4 (11.5-15.5) % Plt Count 373 (150-450) k/uL Neutrophils % 67 % Lymphocytes % 20 % Monocytes % 5 % Eosinophils % 5 % Basophils % 2 % Neutrophils # 7.7 (1.3-7.7) k/uL Lymphocytes # 2.3 (1.0-4.8) k/uL Monocytes # 0.6 (0-1.0) k/uL Eosinophils # 0.5 (0-0.7) k/uL Basophils # 0.2 (0-0.2) k/uL Sodium 142 (137-145) mmol/L Potassium 4.6 (3.5-5.1) mmol/L Chloride 109 H (98-107) mmol/L Carbon Dioxide 23 (22-30) mmol/L Anion Gap 10 mmol/L BUN 12 (9-20) mg/dL Creatinine 0.91 (0.66-1.25) mg/dL Est GFR (MDRD) Af Amer >60 (>60 ml/min/1.73 sqM) Est GFR (MDRD) Non-Af >60 (>60 ml/min/1.73 sqM) Glucose 72 L (74-99) mg/dL Plasma Lactic Acid [place] 1.7 (0.7-2.0) mmol/L Calcium 9.7 (8.4-10.2) mg/dL Total Bilirubin 0.3 (0.2-1.3) mg/dL AST 20 (17-59) U/L ALT 32 (21-72) U/L Alkaline Phosphatase 62 (38-126) U/L Total Protein 6.6 (6.3-8.2) g/dL Albumin 4.0 (3.5-5.0) g/dL Amylase 85 (30-110) U/L Lipase 78 (23-300) U/L Urine Color Urine Appearance (Clear) Urine pH (5.0-8.0) Ur Specific [place] (1.001-1.035) Urine Protein (Negative) Urine Glucose (UA) (Negative) Urine Ketones (Negative) Urine Blood (Negative) Urine Nitrite (Negative) Urine Bilirubin (Negative) Urine Urobilinogen (<2.0) mg/dL Ur Leukocyte Esterase (Negative) 07/16/17 Range/Units 13:50 WBC (3.8-10.6) k/uL RBC (4.30-5.90) m/uL Hgb (13.0-17.5) gm/dL Hct (39.0-53.0) % MCV (80.0-100.0) fL MCH (25.0-35.0) pg MCHC (31.0-37.0) g/dL RDW (11.5-15.5) % Plt Count (150-450) k/uL Neutrophils % % Lymphocytes % % Monocytes % % Eosinophils % % Basophils % % Neutrophils # (1.3-7.7) k/uL Lymphocytes # (1.0-4.8) k/uL Monocytes # (0-1.0) k/uL Eosinophils # (0-0.7) k/uL Basophils # (0-0.2) k/uL Sodium (137-145) mmol/L Potassium (3.5-5.1) mmol/L Chloride (98-107) mmol/L Carbon Dioxide (22-30) mmol/L Anion Gap mmol/L BUN (9-20) mg/dL Creatinine (0.66-1.25) mg/dL Est GFR (MDRD) Af Amer (>60 ml/min/1.73 sqM) Est GFR (MDRD) Non-Af (>60 ml/min/1.73 sqM) Glucose (74-99) mg/dL Plasma Lactic Acid [place] (0.7-2.0) mmol/L Calcium (8.4-10.2) mg/dL Total Bilirubin (0.2-1.3) mg/dL AST (17-59) U/L ALT (21-72) U/L Alkaline Phosphatase (38-126) U/L Total Protein (6.3-8.2) g/dL Albumin (3.5-5.0) g/dL Amylase (30-110) U/L Lipase (23-300) U/L Urine Color Colorless Urine Appearance Clear (Clear) Urine pH 6.5 (5.0-8.0) Ur Specific [place] 1.001 (1.001-1.035) Urine Protein Negative (Negative) Urine Glucose (UA) Negative (Negative) Urine Ketones Negative (Negative) Urine Blood Negative (Negative) Urine Nitrite Negative (Negative) Urine Bilirubin Negative (Negative) Urine Urobilinogen <2.0 (<2.0) mg/dL Ur Leukocyte Esterase Negative (Negative) Disposition Clinical Impression: Gastritis and duodenitis Disposition: HOME SELF-CARE Condition: Good Instructions: Gastritis (ED) Additional Instructions: Please use medication as discussed. Please follow-up with GI specialist in the next 2 days. Please return to emergency room if the symptoms increase or worsen or for any other concerns. Prescriptions: Pantoprazole Sodium [Protonix] 40 mg PO DAILY #10 tablet.dr Referrals: Jcak Villasenor MD [Primary Care Provider] - 1-2 days Time of Disposition: 14:50
[2017-07-16 14:21] LABS: ALT 32 U/L (21-72); AST 20 U/L (17-59); Alkaline Phosphatase 62 U/L (38-126); Amylase 85 U/L (30-110); Anion Gap 10 mmol/L; Blood Urea Nitrogen 12 mg/dL (9-20); Calcium 9.7 mg/dL (8.4-10.2); Carbon Dioxide 23 mmol/L (22-30); Chloride 109 mmol/L (98-107); Glucose 72 mg/dL (74-99); Lipase 78 U/L (23-300); Potassium 4.6 mmol/L (3.5-5.1); Sodium 142 mmol/L (137-145); Total Bilirubin 0.3 mg/dL (0.2-1.3); Total Protein 6.6 g/dL (6.3-8.2)
--- NOTE | 2017-07-16 14:22 | XR ---
EXAMINATION TYPE: XR KUB DATE OF EXAM: 07/16/2017 COMPARISON: NONE HISTORY: Pain TECHNIQUE: Single supine KUB image of the abdomen is obtained FINDINGS: Small bowel demonstrates no evidence for dilatation or air fluid levels. Gas and fecal material is seen in non-distended colon. No convincing evidence for pneumoperitoneum. No unusual calcifications. The lung bases are clear. The osseous structures are intact. IMPRESSION: 1. Overall nonobstructive bowel gas pattern.
[2017-07-16] MEDS ORDERED: HYDROmorphone 2 MG/ML 1 ML SYRINGE IVP STA (14:30)
[2017-07-16] MEDS ORDERED: ONDANSETRON 4 MG/2 ML VIAL IVP STA (14:30)
[2017-07-16 15:04] VITALS: BP 124/73; PULSE 77; RESP 18; TEMP 96.8
== END 2017-07-16 15:13 | disposition home or self-care (01) ==
LOC: EC 12:24
DX: K29.70 Gastritis, unspecified, without bleeding (principal); K29.80 Duodenitis without bleeding; K21.9 Gastro-esophageal reflux disease without esophagitis; F17.200 Nicotine dependence, unspecified, uncomplicated; Z98.890 Other specified postprocedural states; Z79.899 Other long term (current) drug therapy
CPT/HCPCS: 36415; 80053; 82150; 83605; 83690; 85025; 81003; 87040; 74018; 99284; 96374; 96375 ×2; J1170; J2405; C9113

== ENCOUNTER 2017-07-18 12:49 | Emergency (ER) | payer OTHER ==
[2017-07-18 13:07] VITALS: BP 135/85; PULSE 86; RESP 18; TEMP 98.3
--- NOTE | 2017-07-18 13:56 | ED ---
General Adult HPI - General Chief complaint: Abdominal Pain Stated complaint: Abd Pain Time Seen by Provider: 07/18/17 13:37 Source: patient, RN notes reviewed Mode of arrival: ambulatory Limitations: no limitations - History of Present Illness Initial comments: 41-year-old male presents to the emergency department with a chief complaint of needing a work note. He was diagnosed with pancreatitis. He states that he has a follow-up appointment on the but they're currently working him up for different reasons for pancreatitis and he states he just needs more time off work. He states is having the same pain that he's had ever since he was discharged. He states he is indicated for the pain he is able to manage throughout he went to Dr. Nolen's office to get a work note today however they' re unable to provide one did set have appointment so he was sent here to get a work note. He does not want any treatment or workup workup he just needs a work note. Patient denies any recent fever, chills, shortness of breath, chest pain, back pain, nausea vomiting, numbness or tingling, dysuria or hematuria, constipation or diarrhea, headaches or visual changes, or any other current symptoms. - Related Data Home Medications Medication Instructions Recorded Confirmed Pantoprazole Sodium [Protonix] 40 mg PO DAILY 07/16/17 07/16/17 Previous Rx's Medication Instructions Recorded Pantoprazole Sodium [Protonix] 40 mg PO DAILY #10 tablet. 07/16/17 Allergies Allergy/AdvReac Type Severity Reaction Status Date / Time No Known Allergies Allergy Verified 07/18/17 13:04 Review of Systems ROS Statement: Those systems with pertinent positive or pertinent negative responses have been documented in the HPI. ROS Other: All systems not noted in ROS Statement are negative. Past Medical History Past Medical History: GERD/Reflux Additional Past Medical History / Comment(s): Traumatic pneumothorax History of Any Multi-Drug Resistant Organisms: None Reported Additional Past Surgical History / Comment(s): Right sided chest tube; thoravent , polyp removal on pancreas Past Anesthesia/Blood Transfusion Reactions: No Reported Reaction Past Psychological History: Anxiety, Depression Smoking Status: Current every day smoker Past Alcohol Use History: Rare Past Drug Use History: Marijuana - Past Family History Mother Family Medical History: Cancer Father Family Medical History: Cancer General Exam Limitations: no limitations General appearance: alert, in no apparent distress Respiratory exam: Present: normal lung sounds bilaterally. Absent: respiratory distress, wheezes, rales, rhonchi, stridor Cardiovascular Exam: Present: regular rate, normal rhythm, normal heart sounds. Absent: systolic murmur, diastolic murmur, rubs, gallop, clicks GI/Abdominal exam: Present: soft, normal bowel sounds. Absent: distended, tenderness, guarding, rebound, rigid Neurological exam: Present: alert, oriented X3 Psychiatric exam: Present: normal affect, normal mood Skin exam: Present: warm, dry, intact, normal color. Absent: rash Course Vital Signs 07/18/17 13:04 Temperature 98.3 F Pulse Rate 86 Respiratory 18 Rate Blood Pressure 135/85 O2 Sat by Pulse 97 Oximetry Medical Decision Making - Medical Decision Making 41-year-old male presents emergency department requesting a work note he was recently admitted for pancreatitis currently going to outpatient follow-up to figure out source. At this time he does not want workup he does not want lab work does not want pain medication. She was offered bee stings. He states he just wants workup taken follow-up outpatient. We discussed the risks of this. We will respect the patient's wishes and give him a work note. Disposition Clinical Impression: Abdominal pain Disposition: HOME SELF-CARE Condition: Stable Instructions: Abdominal Pain (ED) Additional Instructions: Please use medication as discussed. Please follow up with family doctor if symptoms have not improved over the next two days. Please return to the emergency room if your symptoms increase or worsen or for any other concerns. Referrals: Jack Villasenor MD [Primary Care Provider] - 1-2 days Time of Disposition: 13:56
== END 2017-07-18 14:05 | disposition home or self-care (01) ==
LOC: EC 12:49
DX: R10.9 Unspecified abdominal pain (principal); K21.9 Gastro-esophageal reflux disease without esophagitis; F17.200 Nicotine dependence, unspecified, uncomplicated; Z79.899 Other long term (current) drug therapy
CPT/HCPCS: 99283

== ENCOUNTER 2017-07-30 19:20 | Observation (INO) | payer OTHER ==
[2017-07-30] MEDS ORDERED: NITROGLYCERIN OINT 1 INCH/GM PACKET TOPICAL STA (19:43)
[2017-07-30] MEDS ORDERED: ASPIRIN 81 MG PO STA (19:43)
--- NOTE | 2017-07-30 19:49 | ED ---
Chest Pain HPI - General Chief Complaint: Chest Pain Stated Complaint: post op chest & arm pain Time Seen by Provider: 07/30/17 19:39 Source: patient Mode of arrival: ambulatory Limitations: no limitations - History of Present Illness Initial Comments: This 41-year-old white male presents with a complaint of some chest pain. He states that it is in his left chest and is described as a tightness. It seems radiate down his left arm as well as up into his left neck. He relates that it came on within the last day. It has been associated with 3 syncopal episodes which occurred at home. He denies any injuries. He is had occasional palpitations as well as some occasional shortness of breath. He denies any leg pain or swelling or history of DVT or PE. He does have a history of recent polyp removal from his pancreas by gastroenterology last week. He denies any history of cardiac or pulmonary problems. He has never had a stress test or heart catheterization. There is a slight pleuritic component to his chest pain. No other complaints or modifying factors. He does relate that he has a strong family history of cardiac disease it seems to run in the males in his family. - Related Data Home Medications Medication Instructions Recorded Confirmed No Known Home Medications [No 07/30/17 07/30/17 Known Home Medications] Allergies Allergy/AdvReac Type Severity Reaction Status Date / Time No Known Allergies Allergy Verified 07/30/17 19:49 Review of Systems ROS Statement: Those systems with pertinent positive or pertinent negative responses have been documented in the HPI. ROS Other: All systems not noted in ROS Statement are negative. Past Medical History Past Medical History: GERD/Reflux Additional Past Medical History / Comment(s): Traumatic pneumothorax History of Any Multi-Drug Resistant Organisms: None Reported Additional Past Surgical History / Comment(s): Right sided chest tube; thoravent , polyp removal on pancreas Past Anesthesia/Blood Transfusion Reactions: No Reported Reaction Past Psychological History: Anxiety, Depression Smoking Status: Current every day smoker Past Alcohol Use History: Rare Past Drug Use History: Marijuana - Past Family History Mother Family Medical History: Cancer Father Family Medical History: Cancer General Exam - General Exam Comments Initial Comments: GENERAL: The patient is well nourished and well hydrated. VITAL SIGNS: Heart rate, blood pressure, respiratory rate reviewed as recorded in nurse's notes. EYES: Pupils are round and reactive. Extraocular movements are intact. No conjunctival / lid redness or swelling. ENT: No external evidence of injury, swelling, or ecchymosis. Airway is patent. Throat is clear. NECK: Nontender. No swelling or evidence of injury. No subcutaneous emphysema. Trachea is midline. No thyroid mass. HEART: Regular rate and rhythm. Good peripheral pulses. LUNGS/CHEST: Breath sounds clear and equal bilaterally. No rales, rhonchi, or wheezes. No ecchymosis, subcutaneous emphysema, or tenderness. ABDOMEN: Abdomen soft without tenderness. No palpable masses or organomegaly. No peritoneal signs. No abdominal wall swelling or ecchymosis. EXTREMITIES: No extremity tenderness. Normal muscle tone and function. No thoracolumbar tenderness. NEUROLOGIC: Sensation is grossly intact. Cranial nerve exam reveals face is symmetrical, tongue is midline, speech is clear. SKIN: No abrasions or ecchymosis is noted. No induration or masses noted. PSYCHIATRIC: Alert and oriented. Appropriate behavior and judgment. Limitations: no limitations Course Vital Signs 07/30/17 07/30/17 19:30 20:27 Temperature 98.6 F Pulse Rate 88 88 Respiratory 18 16 Rate Blood Pressure 121/81 134/76 O2 Sat by Pulse 99 98 Oximetry Chest Pain MDM - MDM The patient was seen and examined. All diagnostics were reviewed. The EKG shows a normal sinus rhythm at a rate of 82. There is no acute ST-T wave changes identified. The OK interval is 116, QRS duration is 94, and the QTc interval is 413. He is given aspirin as well as some Nitropaste. The d-dimer is negative. The cardiac enzymes and other laboratories all unremarkable. The chest x-ray does not show any acute processes. The possibility of acute coronary syndrome certainly is plausible and it is felt as though he benefit from a short stay admission for further evaluation. The case is discussed with Dr. Espinoza and she is agreeable with admission. Disposition Clinical Impression: Unstable angina pectoris, Chest pain Disposition: ADMITTED IP TO THIS HOSP Condition: Good Time of Disposition: 20:44 Decision Date: 07/30/17 Decision Time: 20:44
[2017-07-30 19:56] LABS: Basophils # (A) 0.2 k/uL (0-0.2); Basophils % (A) 1 %; Eosinophils # (A) 0.5 k/uL (0-0.7); Eosinophils % (A) 4 %; HGB 17.4 gm/dL (13.0-17.5); Lymphocytes # (A) 2.9 k/uL (1.0-4.8); Lymphocytes % (A) 25 %; MCH 30.8 pg (25.0-35.0); MCHC 33.4 g/dL (31.0-37.0); MCV 92.3 fL (80.0-100.0); Mean Platelet Volume 6.5; Monocytes # (A) 0.5 k/uL (0-1.0); Monocytes % (A) 4 %; Neutrophils # (A) 7.6 k/uL (1.3-7.7); Neutrophils % (A) 65 %; Platelet Count 425 k/uL (150-450); RBC 5.64 m/uL (4.30-5.90); RDW 12.3 % (11.5-15.5); WBC 11.7 k/uL (3.8-10.6)
[2017-07-30 20:03] LABS: ALT 32 U/L (21-72); AST 26 U/L (17-59); Albumin 4.7 g/dL (3.5-5.0); Alkaline Phosphatase 76 U/L (38-126); Anion Gap 10 mmol/L; Blood Urea Nitrogen 19 mg/dL (9-20); Calcium 10.2 mg/dL (8.4-10.2); Carbon Dioxide 29 mmol/L (22-30); Chloride 101 mmol/L (98-107); Glucose 92 mg/dL (74-99); Magnesium 1.9 mg/dL (1.6-2.3); Potassium 4.4 mmol/L (3.5-5.1); Sodium 140 mmol/L (137-145); Total Bilirubin 0.6 mg/dL (0.2-1.3); Total Protein 7.8 g/dL (6.3-8.2)
[2017-07-30 20:10] LABS: D-Dimer 0.2 mg/L FEU (<0.60); INR 0.9 (<1.2); Partial Thromboplastin Time 22.7 sec (22.0-30.0); Prothrombin Time 9.4 sec (9.0-12.0)
[2017-07-30 20:12] LABS: Creatine Kinase 65 U/L (55-170)
[2017-07-30 20:26] LABS: Creatine Kinase MB 0.3 ng/mL (0.0-2.4); Troponin I <0.012 ng/mL (0.000-0.034)
--- NOTE | 2017-07-30 20:39 | XR ---
EXAMINATION TYPE: XR chest 2V DATE OF EXAM: 07/30/2017 COMPARISON: 02/11/2016 HISTORY: Pain TECHNIQUE: Frontal and lateral views of the chest are obtained. FINDINGS: Heart and mediastinum are normal. Lungs are clear. Diaphragm is normal. There are chest le ads. Bony thorax appears intact. IMPRESSION: Normal chest. There is clearing of the small lower lobe infiltrates compared to last exa m.
[2017-07-30] MEDS ORDERED: NITROGLYCERIN SL TABS 0.4 MG TAB SUBLINGUAL PRN (20:44)
[2017-07-30 22:29] VITALS: RESP 18
[2017-07-30 22:56] VITALS: BMI 23.7
[2017-07-30] MEDS: ONDANSETRON 4 MG/2 ML VIAL IVP PRN (23:53)
[2017-07-30] MEDS: HYDROmorphone 0.5 MG/0.5 ML SYRINGE IVP PRN (23:53)
[2017-07-31] MEDS: NITROGLYCERIN OINT 1 INCH/GM PACKET TOPICAL SCH ×3 (00:44→12:11)
[2017-07-31] MEDS: METOPROLOL TARTRATE 25 MG TAB PO SCH ×2 (00:44→12:36)
[2017-07-31 01:58] LABS: Creatine Kinase 53 U/L (55-170)
[2017-07-31 02:10] LABS: Creatine Kinase MB <0.2 ng/mL (0.0-2.4); Troponin I <0.012 ng/mL (0.000-0.034)
[2017-07-31] MEDS: HYDROmorphone 0.5 MG/0.5 ML SYRINGE IVP PRN (03:28)
[2017-07-31 08:16] VITALS: PULSE 67
--- NOTE | 2017-07-31 08:56 | P.CRDCN ---
History of Present Illness Consult date: 07/31/17 Chief complaint: Palpitation in the chest History of present illness: This is a pleasant 41-year-old gentleman with no significant past medical history who underwent failure this month an EGD procedure by Dr. Nolen along with biopsy and the patient was found to have antral gastritis without any evidence of peptic ulcer disease presented to the hospital complaining of abdominal discomfort. The patient stated that he has been experiencing and epigastric discomfort and left upper quadrant discomfort. Over the last 24 hours he has been experiencing intermittent episodes of heart racing and fluttering associated with loss of consciousness according to him. No dizziness or lightheadedness. He stated that he is constantly in pain and he has been receiving pain medications at home. The patient is not aware of any prior cardiac history and never seen any aspnet developer in the past. No documented coronary artery disease, diabetes, hypertension, or dyslipidemia. The workup this time came in to be unremarkable. The EKG showed sinus rhythm without any ST or T-wave abnormalities. The cardiac enzymes were checked and came in to be unremarkable as well. The chest x-ray did not show any acute abnormalities. Past Medical History Past Medical History: GERD/Reflux Additional Past Medical History / Comment(s): Traumatic pneumothorax History of Any Multi-Drug Resistant Organisms: None Reported Additional Past Surgical History / Comment(s): Right sided chest tube; thoravent , polyp removal on pancreas Past Anesthesia/Blood Transfusion Reactions: No Reported Reaction Past Psychological History: Anxiety, Depression Smoking Status: Current every day smoker Past Alcohol Use History: Rare Past Drug Use History: Marijuana Additional Drug Use History / Comment(s): patient states he smoke 4 joints a day. - Past Family History Mother Family Medical History: Cancer Father Family Medical History: Cancer Medications and Allergies Home Medications Medication Instructions Recorded Confirmed Type No Known Home Medications [No 07/30/17 07/30/17 History Known Home Medications] Allergies Allergy/AdvReac Type Severity Reaction Status Date / Time No Known Allergies Allergy Verified 07/30/17 19:49 Physical Exam Vitals: Vital Signs Temp Pulse Pulse Resp BP BP BP 07/31/17 08:00 98.0 F 59 L 18 102/58 07/31/17 03:41 97.3 F L 67 18 110/76 07/31/17 03:34 18 07/31/17 00:00 18 07/30/17 22:30 18 07/30/17 22:28 98.1 F 73 18 112/68 07/30/17 20:27 88 16 134/76 07/30/17 19:30 98.6 F 88 18 121/81 Pulse Ox 07/31/17 08:00 97 07/31/17 03:41 98 07/31/17 03:34 07/31/17 00:00 07/30/17 22:30 07/30/17 22:28 97 07/30/17 20:27 98 07/30/17 19:30 99 Intake and Output 07/30/17 07/31/17 07/31/17 22:59 06:59 14:59 Intake Total 250 Balance 250 Intake: Oral 250 Other: Voiding Method Toilet Toilet # Voids 1 Weight 77.111 kg - Constitutional General appearance: no acute distress - Respiratory Respiratory: bilateral: CTA - Cardiovascular Rhythm: regular Heart sounds: normal: S1, S2 Results 07/30/17 19:40 07/30/17 19:40 Cardiac Enzymes 07/30/17 07/30/17 07/31/17 Range/Units 19:40 19:40 01:09 AST 26 (17-59) U/L CK-MB (CK-2) 0.3 <0.2 (0.0-2.4) ng/mL Troponin I <0.012 <0.012 (0.000-0.034) ng/mL Coagulation 07/30/17 Range/Units 19:40 PT 9.4 (9.0-12.0) sec APTT 22.7 (22.0-30.0) sec CBC 07/30/17 Range/Units 19:40 WBC 11.7 H (3.8-10.6) k/uL RBC 5.64 (4.30-5.90) m/uL Hgb 17.4 (13.0-17.5) gm/dL Hct 52.0 (39.0-53.0) % Plt Count 425 (150-450) k/uL Comprehensive Metabolic Panel 07/30/17 Range/Units 19:40 Sodium 140 (137-145) mmol/L Potassium 4.4 (3.5-5.1) mmol/L Chloride 101 (98-107) mmol/L Carbon Dioxide 29 (22-30) mmol/L BUN 19 (9-20) mg/dL Creatinine 0.90 (0.66-1.25) mg/dL Glucose 92 (74-99) mg/dL Calcium 10.2 (8.4-10.2) mg/dL AST 26 (17-59) U/L ALT 32 (21-72) U/L Alkaline Phosphatase 76 (38-126) U/L Total Protein 7.8 (6.3-8.2) g/dL Albumin 4.7 (3.5-5.0) g/dL Current Medications Generic Name Dose Route Start Last Admin Trade Name Freq PRN Reason Stop Dose Admin Aspirin 325 mg 07/31/17 09:00 Aspirin PO DAILY [facility] Enoxaparin Sodium 40 mg 07/31/17 09:00 Lovenox SQ DAILY [facility] Hydromorphone HCl 0.5 mg 07/30/17 23:19 07/31/17 03:28 Dilaudid IVP 0.5 mg Q4HR PRN Administration Pain Metoprolol Tartrate 25 mg 07/30/17 21:00 07/31/17 00:44 Lopressor PO 25 mg BID [facility] Administration Nitroglycerin 1 inch 07/31/17 00:00 07/31/17 05:39 Nitro-Bid Oint TOPICAL 1 inch Q6HR [facility] Administration Nitroglycerin 0.4 mg 07/30/17 20:44 Nitrostat SUBLINGUAL Q5M PRN Chest Pain Ondansetron HCl 4 mg 07/30/17 23:19 07/30/17 23:53 Zofran IVP 4 mg Q6HR PRN Administration Nausea And Vomiting Intake and Output 07/30/17 07/31/17 07/31/17 22:59 06:59 14:59 Intake Total 250 Balance 250 Intake: Oral 250 Other: Voiding Method Toilet Toilet # Voids 1 Weight 77.111 kg 07/30/17 19:40 07/30/17 19:40 Assessment and Plan Assessment: Assessment #1 epigastric and left upper quadrant discomfort #2 heart racing and fluttering #3 syncopal episodes. Plan #1 the patient was ruled out for acute coronary event #2 he has been maintaining normal sinus mechanism without any evidence of arrhythmia #3 the syncopal episode could be vasovagal because of the pain he has been experiencing #4 I will obtain an echocardiogram was Doppler #5 get the patient up and around and if he is asymptomatic possibly he can be discharged home and seen as an outpatient for possible stress test. Thank you for allowing us participate in his care and we will continue following up with the patient.
[2017-07-31] MEDS ORDERED: ASPIRIN 325 MG TAB PO SCH (09:00)
[2017-07-31] MEDS ORDERED: ENOXAPARIN 40 MG/0.4 ML SYRINGE SQ SCH (09:00)
[2017-07-31] MEDS ORDERED: HYDROmorphone 2 MG/ML 1 ML SYRINGE IVP PRN (09:14)
[2017-07-31] MEDS: ONDANSETRON 4 MG/2 ML VIAL IVP PRN (09:18)
--- NOTE | 2017-07-31 10:20 | ECHOF ---
Referral Reason:cp MEASUREMENTS -------- HEIGHT: 180.3 cm WEIGHT: 77.1 kg BP: 110/56 IVSd: 1.0 cm (0.6 - 1.1) LVIDd: 5.0 cm (3.9 - 5.3) LVPWd: 1.0 cm (0.6 - 1.1) IVSs: 1.2 cm LVIDs: 3.2 cm LVPWs: 1.6 cm Ao Diam: 3.4 cm (2.0 - 3.7) AV Cusp: 1.7 cm (1.5 - 2.6) LA Diam: 3.2 cm (2.7 - 3.8) MV EXCURSION: 19.783 mm (> 18.000) MV EF SLOPE: 158 mm/s (70 - 150) EPSS: 1.4 cm MV E Harrison: 0.57 m/s MV DecT: 242 ms MV A Harrison: 0.37 m/s MV E/A Ratio: 1.54 RAP: 5.00 mmHg RVSP: 10.50 mmHg FINDINGS -------- Sinus rhythm. This was a technically difficult study with suboptimal views. The left ventricular size is normal. Left ventricular wall thickness is normal. Overall left vent ricular systolic function is mildly impaired with, an EF between 45 - 50 %. Basal inferior LV wall motion is hypokinetic. Mid inferior LV wall motion is hypokinetic. The right ventricle is normal in size and function. The left atrium is normal in size. The right atrium is normal in size. Lumason used The aortic valve is trileaflet, and appears structurally normal. No aortic stenosis or regurgitation. The mitral valve leaflets are mildly thickened. There is trace mitral regurgitation. Trace tricuspid regurgitation present. The right ventricular systolic pressure, as measured by Dopp ler, is 10.50mmHg. Pulmonic valve appears structurally normal. The aortic root size is normal. Normal inferior vena cava with normal inspiratory collapse consistent with estimated right atrial pre ssure of 5 mmHg. The pericardium is normal. CONCLUSIONS -------- 1. Sinus rhythm. 2. This was a technically difficult study with suboptimal views. 3. The left ventricular size is normal. 4. Left ventricular wall thickness is normal. 5. Overall left ventricular systolic function is mildly impaired with, an EF between 45 - 50 %. 6. Basal inferior LV wall motion is hypokinetic. 7. Mid inferior LV wall motion is hypokinetic. 8. The right ventricle is normal in size and function. 9. The left atrium is normal in size. 10. The right atrium is normal in size. 11. Lumason used 12. The aortic valve is trileaflet, and appears structurally normal. No aortic stenosis or regurgitat ion. 13. The mitral valve leaflets are mildly thickened. 14. There is trace mitral regurgitation. 15. Trace tricuspid regurgitation present. 16. The right ventricular systolic pressure, as measured by Doppler, is 10.50mmHg. 17. Pulmonic valve appears structurally normal. 18. The aortic root size is normal. 19. Normal inferior vena cava with normal inspiratory collapse consistent with estimated right atrial pressure of 5 mmHg. 20. The pericardium is normal. [employer]IZER: Rosalind Quintanilla RDCS
[2017-07-31 10:49] LABS: Cholesterol 205 mg/dL (<200); HDL Cholesterol 59 mg/dL (40-60); LDL Cholesterol,Calculated 119 mg/dL (0-99); Triglycerides 137 mg/dL (<150)
[2017-07-31 10:51] LABS: Creatine Kinase 45 U/L (55-170)
[2017-07-31 11:03] LABS: Creatine Kinase MB <0.2 ng/mL (0.0-2.4); Troponin I <0.012 ng/mL (0.000-0.034)
[2017-07-31 11:45] VITALS: BP 99/66; TEMP 97.5
--- NOTE | 2017-07-31 13:07 | P.HPIM ---
History of Present Illness 41-year-old gentleman with the known history of gastritis secondary to ibuprofen comes back with with pain of 6 x 10 burning sensation during his last hospital physician patient was advised to take Prilosec but never took Prilosec but did discontinue ibuprofen constant pain nonexertional patient is also coming of sharp pain in the left side of the chest was has some pleuritic competent does have tenderness on exam appears to be mostly musculoskeletal no associated diaphoresisassociated nausea lightheadedness vomiting. Patient had a d-dimer that was negative cardiac valid the patient EKG was essentially within normal limits and troponins were negative patient had an echo cardiac exam which showed minimally decreased ejection fraction of around 40 with 50% with some wall motion abnormalities. Patient was cleared for discharge from cardiology perspective patient appears to have musculoskeletal pain as well as gastritis patient will discharged on Prilosec and tramadol for pain. Patient was ruled out acute coronary syndromes patient denied any fever chills dysuria patient pain is better controlled now. Patient was also complaining of couple of syncopal episode without any seizure-like activity, cardiology evaluated the patient and they believe patient may have had any vasovagal event. Patient was instructed to call primary care patient of Dr. Barrientos's office has more syncopal episode patient's orthostatics were negative. Review of Systems REVIEW OF SYSTEMS: CONSTITUTIONAL: No fever, no malaise, no fatigue. HEENT: No recent visual problems or hearing problems. Denied any sore throat. CARDIOVASCULAR: No orthopnea, PND, no palpitations, no syncope. PULMONARY: No shortness of breath, no cough, no hemoptysis. GASTROINTESTINAL: No diarrhea, no nausea, no vomiting, Normoactive bowel sounds. NEUROLOGICAL: No headaches, no weakness, no numbness. HEMATOLOGICAL: Denies any bleeding or petechiae. GENITOURINARY: Denies any burning micturition, frequency, or urgency. MUSCULOSKELETAL/RHEUMATOLOGICAL: Denies any joint pain, swelling, or any muscle pain. ENDOCRINE: Denies any polyuria or polydipsia. The rest of the 14-point review of systems is negative. Past Medical History Past Medical History: GERD/Reflux Additional Past Medical History / Comment(s): Traumatic pneumothorax History of Any Multi-Drug Resistant Organisms: None Reported Additional Past Surgical History / Comment(s): Right sided chest tube; thoravent , polyp removal on pancreas Past Anesthesia/Blood Transfusion Reactions: No Reported Reaction Past Psychological History: Anxiety, Depression Smoking Status: Current every day smoker Past Alcohol Use History: Rare Past Drug Use History: Marijuana Additional Drug Use History / Comment(s): patient states he smoke 4 joints a day. - Past Family History Mother Family Medical History: Cancer Father Family Medical History: Cancer Medications and Allergies Home Medications Medication Instructions Recorded Confirmed Type Omeprazole [PriLOSEC] 40 mg PO AC-BRKFST #14 capsule.dr 07/31/17 Rx traMADol HCL [Ultram] 50 mg PO Q4HR PRN #30 tab 07/31/17 Rx Allergies Allergy/AdvReac Type Severity Reaction Status Date / Time No Known Allergies Allergy Verified 07/30/17 19:49 Physical Exam Vitals: Vital Signs Temp Pulse Pulse Resp BP BP BP 07/31/17 11:44 97.5 F L 67 18 99/66 07/31/17 08:00 98.0 F 59 L 18 102/58 07/31/17 03:41 97.3 F L 67 18 110/76 07/31/17 03:34 18 07/31/17 00:00 18 07/30/17 22:30 18 07/30/17 22:28 98.1 F 73 18 112/68 07/30/17 20:27 88 16 134/76 07/30/17 19:30 98.6 F 88 18 121/81 Pulse Ox 07/31/17 11:44 96 07/31/17 08:00 97 07/31/17 03:41 98 07/31/17 03:34 07/31/17 00:00 07/30/17 22:30 07/30/17 22:28 97 07/30/17 20:27 98 07/30/17 19:30 99 Intake and Output 07/30/17 07/31/17 07/31/17 22:59 06:59 14:59 Intake Total 250 Balance 250 Intake: Oral 250 Other: Voiding Method Toilet Toilet # Voids 1 Weight 77.111 kg PHYSICAL EXAMINATION: GENERAL: The patient is alert and oriented x3, not in any acute distress. Well developed, well nourished. HEENT: Pupils are round and equally reacting to light. EOMI. No scleral icterus. No conjunctival pallor. Normocephalic, atraumatic. No pharyngeal erythema. No thyromegaly. CARDIOVASCULAR: S1 and S2 present. No murmurs, rubs, or gallops. PULMONARY: Chest is clear to auscultation, no wheezing or crackles. patient does have chest pain that is reproducible ABDOMEN: Soft, nontender, nondistended, normoactive bowel sounds. No palpable organomegaly. MUSCULOSKELETAL: No joint swelling or deformity. EXTREMITIES: No cyanosis, clubbing, or pedal edema. NEUROLOGICAL: Gross neurological examination did not reveal any focal deficits. SKIN: No rashes. Results CBC & Chem 7: 07/30/17 19:40 07/30/17 19:40 Labs: Abnormal Lab Results - Last 24 Hours (Table) 07/30/17 07/31/17 07/31/17 Range/Units 19:40 01:09 10:05 WBC 11.7 H (3.8-10.6) k/uL Total Creatine Kinase 53 L 45 L (55-170) U/L Cholesterol (<200) mg/dL LDL Cholesterol, Calc (0-99) mg/dL 07/31/17 Range/Units 10:05 WBC (3.8-10.6) k/uL Total Creatine Kinase (55-170) U/L Cholesterol 205 H (<200) mg/dL LDL Cholesterol, Calc 119 H (0-99) mg/dL Assessment and Plan Plan: -chest pain: Rule out acute causes syndromes musculoskeletal nature. Was cleared by cardiology. syncopal episode probably of vasovagal event, workup as mentioned above -Gastroesophageal reflux disease and gastritis: Patient will be discharged on Prilosec for 14 days -nicotine abuse: Counseling was provided
--- NOTE | 2017-07-31 13:08 | P.DS ---
Providers Date of admission: 07/30/17 20:48 Attending physician: Chyna Mchugh Consults: 07/30/17 20:45 Consult Physician Urgent Consulting Provider: Abbie Lundy Consult Reason/Comments: cp Do you want consulting provider notified?: Yes Primary care physician: Hamilton [facility] Course: please refer to my HPI. D-dimer was done which was negative. Patient Condition at Discharge: Good Plan - Discharge Summary New Discharge Prescriptions: New Omeprazole [PriLOSEC] 40 mg PO AC-BRKFST #14 capsule. traMADol HCL [Ultram] 50 mg PO Q4HR PRN #30 tab PRN Reason: Pain Discharge Medication List Omeprazole [PriLOSEC] 40 mg PO AC-BRKFST #14 capsule. 07/31/17 [Rx] traMADol HCL [Ultram] 50 mg PO Q4HR PRN #30 tab 07/31/17 [Rx] Follow up Appointment(s)/Referral(s): Jack Villasenor MD [Primary Care Provider] - 3 Days Ayaan Barrientos MD [STAFF PHYSICIAN] - 2 Weeks (Follow up appointment is August 14 at 3:45pm) Discharge Disposition: HOME SELF-CARE
== END 2017-07-31 12:35 | disposition home or self-care (01) ==
LOC: EC 19:20 → 3OBS 20:48
PROVIDERS: ADMIT Hospitalist; ATTEND Hospitalist
DX: R07.89 Other chest pain (principal); R55 Syncope and collapse; K29.60 Other gastritis without bleeding; K21.9 Gastro-esophageal reflux disease without esophagitis; F17.200 Nicotine dependence, unspecified, uncomplicated; F12.90 Cannabis use, unspecified, uncomplicated; Z86.59 Personal history of other mental and behavioral disorders; Z82.49 Family history of ischemic heart disease and other diseases of the circulatory system; Z80.9 Family history of malignant neoplasm, unspecified
CPT/HCPCS: 99285 ×2; 96372; 96374; 96375; 96376; 36415; 93005; 93306; 85379; 80061; 80053; 82550 ×2; 82553 ×2; 83735; 84484 ×2; 85025; 85610; 85730; 71046; G0378 ×2; J1170 ×3; J2405 ×2; J1650; Q9950

== ENCOUNTER 2017-12-12 14:49 | Emergency (ER) | payer OTHER ==
[2017-12-12 15:00] VITALS: TEMP 97.5
[2017-12-12] MEDS ORDERED: ONDANSETRON 4 MG/2 ML VIAL IVP STA (15:29)
[2017-12-12] MEDS ORDERED: SODIUM CHLORIDE 0.9% 500 ML IV STA (15:29)
--- NOTE | 2017-12-12 15:39 | ED ---
General Adult HPI - General Chief complaint: Abdominal Pain Stated complaint: pancreatitis Time Seen by Provider: 12/12/17 14:55 Source: patient, RN notes reviewed Mode of arrival: ambulatory Limitations: no limitations - History of Present Illness Initial comments: This is a 42-year-old male with past medical history significant for pancreatitis. Patient states he used to be a heavy drinker but he very seldom drinks at this point. Patient states the last 2 weeks however he did have a few drinks and now is having some epigastric and left her quadrant tenderness. Patient states very reminiscent of his acute pancreatitis. Patient states she' s nauseated but has not vomited. Patient states had no diarrhea. Patient states he's had no fever no chills. Patient denies any chest pain difficulty breathing or shortness of breath. - Related Data Home Medications Medication Instructions Recorded Confirmed Ibuprofen [Motrin Ib] 200 mg PO DAILY PRN 12/12/17 12/12/17 Omeprazole 20 mg PO BID 12/12/17 12/12/17 Allergies Allergy/AdvReac Type Severity Reaction Status Date / Time No Known Allergies Allergy Verified 12/12/17 15:11 Review of Systems ROS Statement: Those systems with pertinent positive or pertinent negative responses have been documented in the HPI. ROS Other: All systems not noted in ROS Statement are negative. Past Medical History Past Medical History: GERD/Reflux Additional Past Medical History / Comment(s): Traumatic pneumothorax History of Any Multi-Drug Resistant Organisms: None Reported Additional Past Surgical History / Comment(s): Right sided chest tube; thoravent , polyp removal on pancreas Past Anesthesia/Blood Transfusion Reactions: No Reported Reaction Past Psychological History: Anxiety, Depression Smoking Status: Current every day smoker Past Alcohol Use History: Rare Past Drug Use History: Marijuana - Past Family History Mother Family Medical History: Cancer Father Family Medical History: Cancer General Exam - General Exam Comments Initial Comments: GENERAL: Patient is well-developed and well-nourished. Patient is nontoxic and well- hydrated and is in mild distress. ENT: Neck is soft and supple. No significant lymphadenopathy is noted. Oropharynx is clear. Moist mucous membranes. Neck has full range of motion without eliciting any pain. EYES: The sclera were anicteric and conjunctiva were pink and moist. Extraocular movements were intact and pupils were equal round and reactive to light. Eyelids were unremarkable. PULMONARY: Unlabored respirations. Good breath sounds bilaterally. No audible rales rhonchi or wheezing was noted. CARDIOVASCULAR: There is a regular rate and rhythm without any murmurs gallops or rubs. ABDOMEN: Patient has mild epigastric and left upper quadrant tenderness. SKIN: Skin is clear with no lesions or rashes and otherwise unremarkable. NEUROLOGIC: Patient is alert and oriented x3. Cranial nerves II through XII are grossly intact. Motor and sensory are also intact. Normal speech, volume and content. Symmetrical smile. MUSCULOSKELETAL: Normal extremities with adequate strength and full range of motion. LYMPHATICS: No significant lymphadenopathy is noted PSYCHIATRIC: Normal psychiatric evaluation. Normal interpersonal interactions appears functionally intact in deals appropriately with others. No signs of depression. No signs of anxiety. Limitations: no limitations Course Vital Signs 12/12/17 14:55 Temperature 97.5 F L Pulse Rate 87 Respiratory 18 Rate Blood Pressure 129/88 O2 Sat by Pulse 98 Oximetry Medical Decision Making - Medical Decision Making EKG shows normal sinus rhythm at 73 bpm [place] interval is 122 QRS is 92 QT interval 392 QTC is 431. Patient's EKG shows no ST segment elevation or depression or T wave abnormalities are noted. I will back into reevaluate the patient he was feeling better however I told him it did not seem like pancreatitis and he stated that he did not want to have any further workup at this time because he was going to follow-up with Dr. Mckoy on Sunday. - Lab Data Result diagrams: 12/12/17 15:30 12/12/17 15:30 Lab Results 12/12/17 12/12/17 Range/Units 15:30 15:30 WBC 11.6 H (3.8-10.6) k/uL RBC 4.78 (4.30-5.90) m/uL Hgb 15.1 (13.0-17.5) gm/dL Hct 43.7 (39.0-53.0) % MCV 91.3 (80.0-100.0) fL MCH 31.5 (25.0-35.0) pg MCHC 34.5 (31.0-37.0) g/dL RDW 13.4 (11.5-15.5) % Plt Count 339 (150-450) k/uL Neutrophils % 78 % Lymphocytes % 15 % Monocytes % 3 % Eosinophils % 2 % Basophils % 1 % Neutrophils # 9.1 H (1.3-7.7) k/uL Lymphocytes # 1.8 (1.0-4.8) k/uL Monocytes # 0.3 (0-1.0) k/uL Eosinophils # 0.2 (0-0.7) k/uL Basophils # 0.1 (0-0.2) k/uL Sodium 140 (137-145) mmol/L Potassium 4.6 (3.5-5.1) mmol/L Chloride 105 (98-107) mmol/L Carbon Dioxide 24 (22-30) mmol/L Anion Gap 11 mmol/L BUN 18 (9-20) mg/dL Creatinine 0.88 (0.66-1.25) mg/dL Est GFR (CKD-EPI)AfAm >90 (>60 ml/min/1.73 sqM) Est GFR (CKD-EPI)NonAf >90 (>60 ml/min/1.73 sqM) Glucose 97 (74-99) mg/dL Calcium 9.6 (8.4-10.2) mg/dL Total Bilirubin 0.6 (0.2-1.3) mg/dL AST 27 (17-59) U/L ALT 31 (21-72) U/L Alkaline Phosphatase 59 (38-126) U/L Total Protein 6.7 (6.3-8.2) g/dL Albumin 4.3 (3.5-5.0) g/dL Amylase 58 (30-110) U/L Lipase 59 (23-300) U/L Disposition Clinical Impression: Abdominal pain Disposition: HOME SELF-CARE Condition: Good Instructions: Abdominal Pain (ED) Is patient prescribed a controlled substance at d/c from ED?: No Referrals: Jack Villasenor MD [Primary Care Provider] - 1-2 days Time of Disposition: 17:04
[2017-12-12 15:50] LABS: Basophils # (A) 0.1 k/uL (0-0.2); Basophils % (A) 1 %; Eosinophils # (A) 0.2 k/uL (0-0.7); Eosinophils % (A) 2 %; HCT 43.7 % (39.0-53.0); HGB 15.1 gm/dL (13.0-17.5); Lymphocytes # (A) 1.8 k/uL (1.0-4.8); Lymphocytes % (A) 15 %; MCH 31.5 pg (25.0-35.0); MCHC 34.5 g/dL (31.0-37.0); MCV 91.3 fL (80.0-100.0); Mean Platelet Volume 6.3; Monocytes # (A) 0.3 k/uL (0-1.0); Monocytes % (A) 3 %; Neutrophils # (A) 9.1 k/uL (1.3-7.7); Neutrophils % (A) 78 %; Platelet Count 339 k/uL (150-450); RBC 4.78 m/uL (4.30-5.90); RDW 13.4 % (11.5-15.5); WBC 11.6 k/uL (3.8-10.6)
[2017-12-12 16:05] LABS: ALT 31 U/L (21-72); AST 27 U/L (17-59); Albumin 4.3 g/dL (3.5-5.0); Alkaline Phosphatase 59 U/L (38-126); Amylase 58 U/L (30-110); Anion Gap 11 mmol/L; Blood Urea Nitrogen 18 mg/dL (9-20); Calcium 9.6 mg/dL (8.4-10.2); Carbon Dioxide 24 mmol/L (22-30); Chloride 105 mmol/L (98-107); Glucose 97 mg/dL (74-99); Lipase 59 U/L (23-300); Potassium 4.6 mmol/L (3.5-5.1); Sodium 140 mmol/L (137-145); Total Bilirubin 0.6 mg/dL (0.2-1.3); Total Protein 6.7 g/dL (6.3-8.2)
[2017-12-12 17:11] VITALS: BP 124/79; PULSE 78; RESP 16
== END 2017-12-12 17:11 | disposition home or self-care (01) ==
LOC: EC 14:49
DX: R10.13 Epigastric pain (principal); R11.0 Nausea; K21.9 Gastro-esophageal reflux disease without esophagitis; F17.200 Nicotine dependence, unspecified, uncomplicated; Z79.899 Other long term (current) drug therapy
CPT/HCPCS: 36415; 93005; 80053; 82150; 83690; 85025; 99284; 96374; J2405

== ENCOUNTER 2018-01-23 11:31 | Emergency (ER) | payer OTHER ==
[2018-01-23 11:41] VITALS: PULSE 69
--- NOTE | 2018-01-23 12:40 | ED ---
General Adult HPI - General Chief complaint: Recheck/Abnormal Lab/Rx Stated complaint: Male Time Seen by Provider: 01/23/18 12:12 Source: patient, RN notes reviewed Mode of arrival: ambulatory Limitations: no limitations - History of Present Illness Initial comments: Patient 42-year-old male presented to the emergency room today with chief complaint of bloody stool off and on over the last several years. He states over the last 3 days, more pronounced. States seen both dark stool and bright red blood at times. Patient has been some cramping lower abdomen but states pain is comes and goes. Patient states never had a colonoscopy. Patient denies any nausea vomiting. Denies any other concerns or symptoms. Patient denies any recent fever, chills, shortness of breath, chest pain, back pain, abdominal pain, nausea or vomiting, numbness or tingling, dysuria or hematuria, constipation, headaches or visual changes, or any other complaints. - Related Data Home Medications Medication Instructions Recorded Confirmed No Known Home Medications 01/23/18 01/23/18 Allergies Allergy/AdvReac Type Severity Reaction Status Date / Time No Known Allergies Allergy Verified 01/23/18 13:02 Review of Systems ROS Statement: Those systems with pertinent positive or pertinent negative responses have been documented in the HPI. ROS Other: All systems not noted in ROS Statement are negative. Past Medical History Past Medical History: GERD/Reflux Additional Past Medical History / Comment(s): Traumatic pneumothorax History of Any Multi-Drug Resistant Organisms: None Reported Additional Past Surgical History / Comment(s): Right sided chest tube; thoravent , polyp removal on pancreas Past Anesthesia/Blood Transfusion Reactions: No Reported Reaction Past Psychological History: Anxiety, Depression Smoking Status: Current every day smoker Past Alcohol Use History: Rare Past Drug Use History: Marijuana - Past Family History Mother Family Medical History: Cancer Father Family Medical History: Cancer General Exam - General Exam Comments Initial Comments: General: The patient is awake and alert, in no distress, and does not appear acutely ill. Eye: Pupils are equal, round and reactive to light, extra-ocular movements are intact. No nystagmus. There is normal conjunctiva bilaterally. No signs of icterus. Ears, nose, mouth and throat: There are moist mucous membranes and no oral lesions. Neck: The neck is supple, there is no tenderness or JVD. Cardiovascular: There is a regular rate and rhythm. No murmur, rub or gallop is appreciated. Respiratory: Lungs are clear to auscultation, respirations are non-labored, breath sounds are equal. No wheezes, stridor, rales, or rhonchi. Gastrointestinal: Soft, non-distended, non-tender abdomen without masses or organomegaly noted. There is no rebound or guarding present. No CVA tenderness. Bowel sounds are unremarkable. Musculoskeletal: Normal ROM, no tenderness. Strength 5/5. Sensation intact. Pulses equal bilaterally 2+. Neurological: A&O x 3. CN II-XII intact, There are no obvious motor or sensory deficits. Coordination appears grossly intact. Speech is normal. Skin: Skin is warm and dry and no rashes or lesions are noted. Psychiatric: Cooperative, appropriate mood & affect, normal judgment. Limitations: no limitations Course Vital Signs 01/23/18 11:39 Temperature 98.0 F Pulse Rate 69 Respiratory 20 Rate Blood Pressure 138/93 O2 Sat by Pulse 100 Oximetry Medical Decision Making - Medical Decision Making Patient's labs been reviewed are unremarkable. Negative guaiac here the patient has seen blood in the stool off and on over the last few years. Patient resting comfortable. No abdominal pain present and soft nontender. His labs been reviewed unremarkable. Patient is advised that he does need follow-up for colonoscopy. She is advised to return for any other concerns. - Lab Data Result diagrams: 01/23/18 12:39 01/23/18 12:39 Lab Results 01/23/18 01/23/18 01/23/18 Range/Units 12:39 12:39 12:39 WBC 9.8 (3.8-10.6) k/uL RBC 5.17 (4.30-5.90) m/uL Hgb 16.3 (13.0-17.5) gm/dL Hct 48.6 (39.0-53.0) % MCV 94.0 (80.0-100.0) fL MCH 31.5 (25.0-35.0) pg MCHC 33.5 (31.0-37.0) g/dL RDW 13.1 (11.5-15.5) % Plt Count 341 (150-450) k/uL Neutrophils % 65 % Lymphocytes % 23 % Monocytes % 6 % Eosinophils % 3 % Basophils % 1 % Neutrophils # 6.4 (1.3-7.7) k/uL Lymphocytes # 2.3 (1.0-4.8) k/uL Monocytes # 0.6 (0-1.0) k/uL Eosinophils # 0.3 (0-0.7) k/uL Basophils # 0.1 (0-0.2) k/uL Sodium 139 (137-145) mmol/L Potassium 5.2 H (3.5-5.1) mmol/L Chloride 104 (98-107) mmol/L Carbon Dioxide 25 (22-30) mmol/L Anion Gap 10 mmol/L BUN 20 (9-20) mg/dL Creatinine 0.92 (0.66-1.25) mg/dL Est GFR (CKD-EPI)AfAm >90 (>60 ml/min/1.73 sqM) Est GFR (CKD-EPI)NonAf >90 (>60 ml/min/1.73 sqM) Glucose 93 (74-99) mg/dL Calcium 9.8 (8.4-10.2) mg/dL Total Bilirubin 0.4 (0.2-1.3) mg/dL AST 28 (17-59) U/L ALT 30 (21-72) U/L Alkaline Phosphatase 61 (38-126) U/L Total Protein 7.3 (6.3-8.2) g/dL Albumin 4.5 (3.5-5.0) g/dL Lipase 94 (23-300) U/L Urine Color Urine Appearance (Clear) Urine pH (5.0-8.0) Ur Specific [place] (1.001-1.035) Urine Protein (Negative) Urine Glucose (UA) (Negative) Urine Ketones (Negative) Urine Blood (Negative) Urine Nitrite (Negative) Urine Bilirubin (Negative) Urine Urobilinogen (<2.0) mg/dL Ur Leukocyte Esterase (Negative) Stool Occult Blood Negative (Negative) 01/23/18 Range/Units 12:39 WBC (3.8-10.6) k/uL RBC (4.30-5.90) m/uL Hgb (13.0-17.5) gm/dL Hct (39.0-53.0) % MCV (80.0-100.0) fL MCH (25.0-35.0) pg MCHC (31.0-37.0) g/dL RDW (11.5-15.5) % Plt Count (150-450) k/uL Neutrophils % % Lymphocytes % % Monocytes % % Eosinophils % % Basophils % % Neutrophils # (1.3-7.7) k/uL Lymphocytes # (1.0-4.8) k/uL Monocytes # (0-1.0) k/uL Eosinophils # (0-0.7) k/uL Basophils # (0-0.2) k/uL Sodium (137-145) mmol/L Potassium (3.5-5.1) mmol/L Chloride (98-107) mmol/L Carbon Dioxide (22-30) mmol/L Anion Gap mmol/L BUN (9-20) mg/dL Creatinine (0.66-1.25) mg/dL Est GFR (CKD-EPI)AfAm (>60 ml/min/1.73 sqM) Est GFR (CKD-EPI)NonAf (>60 ml/min/1.73 sqM) Glucose (74-99) mg/dL Calcium (8.4-10.2) mg/dL Total Bilirubin (0.2-1.3) mg/dL AST (17-59) U/L ALT (21-72) U/L Alkaline Phosphatase (38-126) U/L Total Protein (6.3-8.2) g/dL Albumin (3.5-5.0) g/dL Lipase (23-300) U/L Urine Color Yellow Urine Appearance Clear (Clear) Urine pH 5.5 (5.0-8.0) Ur Specific [place] 1.021 (1.001-1.035) Urine Protein Negative (Negative) Urine Glucose (UA) Negative (Negative) Urine Ketones Negative (Negative) Urine Blood Negative (Negative) Urine Nitrite Negative (Negative) Urine Bilirubin Negative (Negative) Urine Urobilinogen <2.0 (<2.0) mg/dL Ur Leukocyte Esterase Negative (Negative) Stool Occult Blood (Negative) Disposition Clinical Impression: Blood in stool Disposition: HOME SELF-CARE Condition: Good Instructions: Rectal Bleeding (ED) Additional Instructions: Please follow-up GI or surgeon for colonoscopy as discussed. Return here to emergency room if any symptoms increase or worsen. Is patient prescribed a controlled substance at d/c from ED?: No Referrals: Jack Villasenor MD [Primary Care Provider] - 1-2 days Sushma Mckoy MD [STAFF PHYSICIAN] - 1-2 days Cate Lima MD [STAFF PHYSICIAN] - 1-2 days Time of Disposition: 13:30
[2018-01-23 13:05] LABS: Appearance,Urine Clear (Clear); Bilirubin,Urine Negative (Negative); Blood,Urine Negative (Negative); Color,Urine Yellow; Glucose,Urine (UA) Negative (Negative); Ketones,Urine Negative (Negative); Leukocyte Esterase,Urine Negative (Negative); Nitrite,Urine Negative (Negative); PH, Urine 5.5 (5.0-8.0); Protein,Urine Negative (Negative); Specific Gravity,Urine 1.021 (1.001-1.035); Urobilinogen,Urine <2.0 mg/dL (<2.0)
[2018-01-23 13:08] LABS: ALT 30 U/L (21-72); AST 28 U/L (17-59); Albumin 4.5 g/dL (3.5-5.0); Alkaline Phosphatase 61 U/L (38-126); Anion Gap 10 mmol/L; Blood Urea Nitrogen 20 mg/dL (9-20); Calcium 9.8 mg/dL (8.4-10.2); Carbon Dioxide 25 mmol/L (22-30); Chloride 104 mmol/L (98-107); Glucose 93 mg/dL (74-99); Lipase 94 U/L (23-300); Potassium 5.2 mmol/L (3.5-5.1); Sodium 139 mmol/L (137-145); Total Bilirubin 0.4 mg/dL (0.2-1.3); Total Protein 7.3 g/dL (6.3-8.2)
[2018-01-23 13:12] LABS: Basophils # (A) 0.1 k/uL (0-0.2); Basophils % (A) 1 %; Eosinophils # (A) 0.3 k/uL (0-0.7); Eosinophils % (A) 3 %; HCT 48.6 % (39.0-53.0); HGB 16.3 gm/dL (13.0-17.5); Lymphocytes # (A) 2.3 k/uL (1.0-4.8); Lymphocytes % (A) 23 %; MCH 31.5 pg (25.0-35.0); MCHC 33.5 g/dL (31.0-37.0); Mean Platelet Volume 6.2; Monocytes # (A) 0.6 k/uL (0-1.0); Monocytes % (A) 6 %; Neutrophils # (A) 6.4 k/uL (1.3-7.7); Neutrophils % (A) 65 %; Platelet Count 341 k/uL (150-450); RBC 5.17 m/uL (4.30-5.90); RDW 13.1 % (11.5-15.5); WBC 9.8 k/uL (3.8-10.6)
[2018-01-23 13:57] VITALS: BP 128/85; RESP 18; TEMP 98.6
== END 2018-01-23 14:02 | disposition home or self-care (01) ==
LOC: EC 11:31
DX: K92.1 Melena (principal); F17.200 Nicotine dependence, unspecified, uncomplicated
CPT/HCPCS: 36415; 80053; 81003; 82272; 83690; 85025; 99283

== ENCOUNTER 2018-04-22 12:19 | Emergency (ER) | payer OTHER ==
[2018-04-22 12:52] VITALS: BP 149/65; PULSE 75; RESP 16; TEMP 98.2
[2018-04-22] MEDS ORDERED: KETOROLAC 60 MG/2 ML VIAL IM STA (13:29)
--- NOTE | 2018-04-22 13:32 | ED ---
General Adult HPI - General Source: patient, RN notes reviewed Mode of arrival: ambulatory Limitations: no limitations <Alejandro Orellana - Last Filed: 04/22/18 14:09> <Samantha Cid - Last Filed: 04/22/18 14:18> - General Chief complaint: Extremity Injury, Upper Stated complaint: rt hand injury Time Seen by Provider: 04/22/18 12:45 - History of Present Illness Initial comments: This is a 42-year-old male who comes in complaining of right fifth metacarpal pain. Patient states he actually punched a metal frame near his punching bag and hurt his hand. Patient denies any wrist pain. Patient denies any other pain. Patient denies any sites of bleeding. (Alejandro Orellana) - Related Data Home Medications Medication Instructions Recorded Confirmed No Known Home Medications 01/23/18 01/23/18 Allergies Allergy/AdvReac Type Severity Reaction Status Date / Time No Known Allergies Allergy Verified 04/22/18 12:52 Review of Systems ROS Other: All systems not noted in ROS Statement are negative. <Alejandro Orellana - Last Filed: 04/22/18 14:09> ROS Other: All systems not noted in ROS Statement are negative. <Samantha Cid - Last Filed: 04/22/18 14:18> ROS Statement: Those systems with pertinent positive or pertinent negative responses have been documented in the HPI. Past Medical History Past Medical History: GERD/Reflux Additional Past Medical History / Comment(s): Traumatic pneumothorax History of Any Multi-Drug Resistant Organisms: None Reported Additional Past Surgical History / Comment(s): Right sided chest tube; thoravent , polyp removal on pancreas Past Anesthesia/Blood Transfusion Reactions: No Reported Reaction Past Psychological History: Anxiety, Depression Smoking Status: Current every day smoker Past Alcohol Use History: Rare Past Drug Use History: Marijuana - Past Family History Mother Family Medical History: Cancer Father Family Medical History: Cancer <Alejandro Orellana - Last Filed: 04/22/18 14:09> General Exam Limitations: no limitations <Alejandro Orellana - Last Filed: 04/22/18 14:09> <Samantha Cid - Last Filed: 04/22/18 14:18> - General Exam Comments Initial Comments: GENERAL Patient is well-developed and well-nourished. Patient is in mild distress. EYES Patient's pupils are equal and round. Extraocular motion is intact SKIN Unremarkable NEURO The patient is alert and oriented 3 PYSCH Patient has normal interpersonal interactions. MUSCULOSKELETAL Patient's right fifth metacarpal tender to palpation (Alejandro Orellana) Vital Signs 04/22/18 12:47 Temperature 98.2 F Pulse Rate 75 Respiratory 16 Rate Blood Pressure 149/65 O2 Sat by Pulse 96 Oximetry Procedures - Orthopedic Splinting/Casting Injury #1 Side: right Upper Extremity Injury Location: hand Upper Extremity Immobilizer: ulnar gutter, synthetic pre-padded splint <Samantha Cid - Last Filed: 04/22/18 14:18> Medical Decision Making <Alejandro Orellana - Last Filed: 04/22/18 14:09> <Samantha Cid - Last Filed: 04/22/18 14:18> - Medical Decision Making X-ray of the hand shows a fifth metacarpal fracture with angulation and is comminuted as well. (Alejandro Orellana) Disposition Is patient prescribed a controlled substance at d/c from ED?: No Time of Disposition: 14:10 <Alejandro Orellana - Last Filed: 04/22/18 14:09> <Samantha Cid - Last Filed: 04/22/18 14:18> Clinical Impression: Metacarpal bone fracture Disposition: HOME SELF-CARE Instructions: Hand Fracture (ED) Additional Instructions: Patient needs to follow up with orthopedics because of the angulation of the fracture patient is aware of this. Referrals: Miguelangel Doty MD [STAFF PHYSICIAN] - 1-2 days
--- NOTE | 2018-04-22 13:57 | XR ---
EXAMINATION TYPE: XR hand complete RT DATE OF EXAM: 04/22/2018 CLINICAL HISTORY: pain TECHNIQUE: Frontal, lateral and oblique images of the right hand are obtained. COMPARISON: February 05, 2016 FINDINGS: There is refracture noted in the region of the neck of the fifth metacarpal with angulation noted and mild comminution seen. There is associated soft tissue swelling. No definite evidence for intra-articular extension. No additional fracture seen at this time. Healed fractures also noted at t he base of the fourth metacarpal. IMPRESSION: There is refracture noted in the region of the neck of the fifth metacarpal with angulation noted and mild comminution seen. ICD 10 closed FRACTURE, INITIAL EVALUATION
== END 2018-04-22 14:23 | disposition home or self-care (01) ==
LOC: EC 12:19
DX: S62.306A Unspecified fracture of fifth metacarpal bone, right hand, initial encounter for closed fracture (principal); F17.200 Nicotine dependence, unspecified, uncomplicated; W22.8XXA Striking against or struck by other objects, initial encounter
CPT/HCPCS: 29125; 96372; 99283

== ENCOUNTER 2021-07-17 07:17 | Emergency (ER) | payer OTHER ==
[2021-07-17 07:29] VITALS: BP 138/91; PULSE 85; RESP 18; TEMP 97.8
[2021-07-17] MEDS ORDERED: HYDROcodone/APAP 5-325MG 1 EACH TAB PO STA (07:36)
[2021-07-17] MEDS ORDERED: KETOROLAC 15 MG/ML 1 ML VIAL IM STA (07:36)
--- NOTE | 2021-07-17 07:42 | ED ---
General Adult HPI - General Chief complaint: Fall Stated complaint: Rib pain Time Seen by Provider: 07/17/21 07:29 Source: patient, RN notes reviewed, old records reviewed Mode of arrival: ambulatory Limitations: no limitations - History of Present Illness Initial comments: Is a 45-year-old male with past medical history remarkable for acid reflux who p resents emergency department 3 days after fall. Patient is taking [place] lights off the hospital approximately 6 feet. Landed on his left side. States he was immediately ambulatory laboratory afterwards. Denies LOC or hitting his head. Denies being on blood thinners. Denies any shortness breath, chest pain, abdominal pain, nausea, vomiting. Has no spine tenderness palpation. Patient presents today as he is concerned he may broken a rib on the left. He is complaining of some left lateral pinpoint rib pain that radiates in a belt like distribution around his side. Denies any cough, fevers, chills. It is worse with movement of his left arm or torso. There is been trying to take Tylenol Motrin for the pain, however is not improving. Presents emergency department over concern for possible fracture. - Related Data Previous Rx's Medication Instructions Recorded HYDROcodone/APAP 5-325MG [[place] 1 tab PO Q6HR PRN 3 Days #12 tab 07/17/21 5-325] Lidocaine 5% Patch [Lidoderm 5% 1 patch TOPICAL DAILY PRN 7 Days 07/17/21 Patch] #7 patch Methocarbamol [Robaxin-750] 750 mg PO BID PRN 7 Days #14 tablet 07/17/21 Allergies Allergy/AdvReac Type Severity Reaction Status Date / Time No Known Allergies Allergy Verified 04/22/18 12:52 Review of Systems ROS Statement: Those systems with pertinent positive or pertinent negative responses have been documented in the HPI. Review of Systems: CONST: Denies fever EYES: Denies blurry vision ENT: Denies nasal congestion C/V: Denies Chest pain RESP: Denies shortness of breath GI: Denies abdominal pain : Denies dysuria SKIN: Denies rash. MSK: Endorses rib pain NEURO: Denies headache ROS Other: All systems not noted in ROS Statement are negative. Past Medical History Past Medical History: GERD/Reflux Additional Past Medical History / Comment(s): Traumatic pneumothorax History of Any Multi-Drug Resistant Organisms: None Reported Additional Past Surgical History / Comment(s): Right sided chest tube; thoravent, polyp removal on pancreas Past Anesthesia/Blood Transfusion Reactions: No Reported Reaction Past Psychological History: No Psychological Hx Reported Smoking Status: Current every day smoker Past Alcohol Use History: None Reported Past Drug Use History: None Reported - Past Family History Mother Family Medical History: Cancer Father Family Medical History: Cancer General Exam - General Exam Comments Initial Comments: General: Appears in no acute distress. HEAD: Normal with no signs of head trauma. EYES: PERRLA, EOMI, conjunctiva normal, no discharge. ENT: Hearing grossly intact, normal oropharynx. RESPIRATORY: Clear breath sounds bilaterally. No wheezes, rales, or rhonchi. C/V: Regular rate and rhythm. S1 and S2 auscultated, no edema, peripheral pulses 2+ and intact throughout ABD: Abd is soft, nontender, nondistended EXT: No tenderness to palpation of the cervical, thoracic, lumbar spines. Pelvis stable. Patient does have some tenderness over the left approximately fifth or sixth rib in the posterior axillary line that is pinpoint to the rib as well as the corresponding intercostal spaces. There is a small bruise developing at the site. Otherwise no obvious deformities. SKIN: No rashes or lesions observed on exposed skin. NEURO: Alert and oriented 4. Limitations: no limitations Course Vital Signs 07/17/21 07:23 Temperature 97.8 F Pulse Rate 85 Respiratory 18 Rate Blood Pressure 138/91 O2 Sat by Pulse 100 Oximetry Medical Decision Making - Medical Decision Making Based on the patient's presentation and physical exam, I'm concerned for possible acute rib fracture and the patient. We will obtain x-rays. Patient will be administered analgesia. He was in agreement this plan. Patient's x-rays revealed Altered fractures that are healed on the right but no acute rib fractures. X-rays are otherwise unremarkable.. I discussed the findings with the patient. I answered all questions that had. We'll provide him with prescriptions for analgesic medications, as well as provided with an incentive spirometer. Patient was in agreement with this plan. I will provide the patient with a prescription for lidocaine patch, [place] 5, Robaxin. I instructed the patient to follow up with their PCP in the next 3 days.Opiate form was completed I provided contact information for follow up with orthopedics. I explained that the patient should return to the emergency department if they experience any worsening symptoms. Strict return precautions were discussed with the patient. The patient expressed understanding of these instructions. I answered all questions that the patient had. The patient was discharged home in fair condition with their prescriptions and follow up information. Disposition Clinical Impression: Fall, Rib pain on left side Disposition: HOME SELF-CARE Condition: Fair Instructions (If sedation given, give patient instructions): How to Use an Incentive Spirometer (ED), Fall Prevention (ED), Rib Contusion (ED) Prescriptions: Lidocaine 5% Patch [Lidoderm 5% Patch] 1 patch TOPICAL DAILY PRN 7 Days #7 patch PRN Reason: Pain HYDROcodone/APAP 5-325MG [[place] 5-325] 1 tab PO Q6HR PRN 3 Days #12 tab PRN Reason: Pain Methocarbamol [Robaxin-750] 750 mg PO BID PRN 7 Days #14 tablet PRN Reason: Pain Is patient prescribed a controlled substance at d/c from ED?: No Referrals: Jack Villasenor MD [Primary Care Provider] - 1-2 days Miguelangel Doty MD [STAFF PHYSICIAN] - 1-2 days
--- NOTE | 2021-07-17 08:20 | XR ---
Chest and bilateral RIBS HISTORY: Fall COMPARISON: 07/30/2017. PA view the chest 8 views of the bilateral ribs were obtained. FINDINGS: Lungs are clear of consolidative, interstitial or masslike opacity. There is no pleural effusion, pleural thickening or pneumothorax. Heart, pulmonary vasculature, media stinum and hilum appear normal. There appears to be healed right fourth, ninth and 10th rib fracture s laterally. There are no acute rib fractures bilaterally. IMPRESSION: 1. No acute cardiopulmonary disease. 2. No acute rib fractures.
== END 2021-07-17 09:05 | disposition home or self-care (01) ==
LOC: EC 07:17
DX: R07.81 Pleurodynia (principal); F17.200 Nicotine dependence, unspecified, uncomplicated; W17.89XA Other fall from one level to another, initial encounter; Y92.009 Unspecified place in unspecified non-institutional (private) residence as the place of occurrence of the external cause
CPT/HCPCS: 71111; 99284; 96372; J1885

== ENCOUNTER 2021-11-29 10:34 | Emergency (ER) | payer OTHER ==
[2021-11-29 10:54] VITALS: RESP 20
[2021-11-29] MEDS ORDERED: ACET/COD 300 MG/30 MG STARTER PACK 6 TAB BTL PO STA (12:36)
--- NOTE | 2021-11-29 12:40 | ED ---
General Adult HPI - General Chief complaint: Extremity Problem,Nontraumatic Stated complaint: Both elbows pain Time Seen by Provider: 11/29/21 12:20 Source: patient Mode of arrival: ambulatory Limitations: no limitations - History of Present Illness Initial comments: Dictation was produced using [employer] dictation software. please excuse any grammatical, word or spelling errors. Chief Complaint: 46-year-old male presents emergency Department with bilateral medial elbow pain History of Present Illness: Patient is a 46-year-old male he has bilateral medial elbow pain. He was sent in by his work to be evaluated. He states that he started his job were he does a lot of pulling and physical activities requiring moving heavy weights with his upper extremities. He states that her last couple days he's been having worsening medial elbow pain bilaterally across on his right compared to his left. Patient states it's painful whenever he pronates and supinates his wrist. The ROS documented in this emergency department record has been reviewed and confirmed by me. Those systems with pertinent positive or negative responses have been documented in the HPI. All other systems are other negative and/or noncontributory. PHYSICAL EXAM: General Impression: Alert and oriented x3, not in acute distress HEENT: Normocephalic atraumatic, extra-ocular movements intact, pupils equal and reactive to light bilaterally, mucous membranes moist. Cardiovascular: Heart regular rate and rhythm Chest: Able to complete full sentences, no retractions, no tachypnea Musculoskeletal: Pulses present and equal in all extremities, no peripheral edema Bilateral upper extremities: Pain is reproduced with palpation to the medial epicondyle and with pronation and supination of the bilateral upper extremities Motor: no focal deficits noted Neurological: CN II-XII grossly intact, no focal motor or sensory deficits noted Skin: Intact with no visualized rashes Psych: Normal affect and mood ED course: 46-year-old male presents to the emergency department for bilateral medial epicondylitis. Vital signs upon arrival are within acceptable limits. Patient given work note advised to rest. He is also given starter pack for analgesics. - Related Data Previous Rx's Medication Instructions Recorded HYDROcodone/APAP 5-325MG [[place] 1 tab PO Q6HR PRN 3 Days #12 tab 07/17/21 5-325] Lidocaine 5% Patch [Lidoderm 5% 1 patch TOPICAL DAILY PRN 7 Days 07/17/21 Patch] #7 patch Methocarbamol [Robaxin-750] 750 mg PO BID PRN 7 Days #14 tablet 07/17/21 Allergies Allergy/AdvReac Type Severity Reaction Status Date / Time No Known Allergies Allergy Verified 11/29/21 10:54 Review of Systems ROS Statement: Those systems with pertinent positive or pertinent negative responses have been documented in the HPI. ROS Other: All systems not noted in ROS Statement are negative. Past Medical History Past Medical History: GERD/Reflux Additional Past Medical History / Comment(s): Traumatic pneumothorax History of Any Multi-Drug Resistant Organisms: None Reported Additional Past Surgical History / Comment(s): Right sided chest tube; thoravent, polyp removal on pancreas Past Anesthesia/Blood Transfusion Reactions: No Reported Reaction Past Psychological History: No Psychological Hx Reported Smoking Status: Current every day smoker Past Alcohol Use History: None Reported Past Drug Use History: None Reported - Past Family History Mother Family Medical History: Cancer Father Family Medical History: Cancer General Exam Limitations: no limitations Course Vital Signs 11/29/21 10:52 Temperature 98.1 F Pulse Rate 87 Respiratory 20 Rate Blood Pressure 151/89 O2 Sat by Pulse 97 Oximetry Disposition Clinical Impression: Medial epicondylitis Disposition: HOME SELF-CARE Condition: Good Additional Instructions: Today you are diagnosed with bilateral medial epicondylitis. Another name for this is a golfer's elbow. It is recommended that you purchase a tennis elbow brace which may alleviate symptoms and speed recovery. Otherwise avoid strenuous activity involving the bilateral elbows Is patient prescribed a controlled substance at d/c from ED?: No Referrals: Cassidy Alvarez DO [Primary Care Provider] - 1-2 days
[2021-11-29 13:09] VITALS: BP 146/77; PULSE 82; TEMP 97.8
== END 2021-11-29 13:08 | disposition home or self-care (01) ==
LOC: EC 10:34
DX: M77.02 Medial epicondylitis, left elbow (principal); M77.01 Medial epicondylitis, right elbow; F17.200 Nicotine dependence, unspecified, uncomplicated
CPT/HCPCS: 99283

== ENCOUNTER 2021-12-12 07:37 | Emergency (ER) | payer OTHER ==
[2021-12-12 08:03] VITALS: RESP 18
--- NOTE | 2021-12-12 08:23 | ED ---
General Adult HPI - General Chief complaint: Extremity Injury, Upper Stated complaint: elbow pain-revisit Time Seen by Provider: 12/12/21 08:00 Source: patient, RN notes reviewed, old records reviewed Mode of arrival: ambulatory Limitations: no limitations - History of Present Illness Initial comments: This is a 46-year-old male who presents emergency department for repeat visit. Patient states he was diagnosed with medial epicondylitis and the pain has not gone away so he can't get a primary medical care doctor so he came to the emergency department. Patient states he receives Dr. Troy for her neck issues. Patient has been wearing braces on both arms but his job is very physical and is always doing some lifting so he keeps we irritating his epicondylitis. Patient denies any blunt trauma to the area. Patient denies any other issues. Patient denies any fever chills. Patient denies any swelling. - Related Data Previous Rx's Medication Instructions Recorded HYDROcodone/APAP 5-325MG [[place] 1 tab PO Q6HR PRN 3 Days #12 tab 07/17/21 5-325] Lidocaine 5% Patch [Lidoderm 5% 1 patch TOPICAL DAILY PRN 7 Days 07/17/21 Patch] #7 patch Methocarbamol [Robaxin-750] 750 mg PO BID PRN 7 Days #14 tablet 07/17/21 predniSONE [Deltasone] 40 mg PO DAILY #12 tab 12/12/21 Allergies Allergy/AdvReac Type Severity Reaction Status Date / Time No Known Allergies Allergy Verified 12/12/21 08:04 Review of Systems ROS Statement: Those systems with pertinent positive or pertinent negative responses have been documented in the HPI. ROS Other: All systems not noted in ROS Statement are negative. Past Medical History Past Medical History: GERD/Reflux Additional Past Medical History / Comment(s): Traumatic pneumothorax History of Any Multi-Drug Resistant Organisms: None Reported Additional Past Surgical History / Comment(s): Right sided chest tube; thoravent, polyp removal on pancreas Past Anesthesia/Blood Transfusion Reactions: No Reported Reaction Past Psychological History: No Psychological Hx Reported Smoking Status: Current every day smoker Past Alcohol Use History: Occasional Past Drug Use History: None Reported - Past Family History Mother Family Medical History: Cancer Father Family Medical History: Cancer General Exam - General Exam Comments Initial Comments: GENERAL Patient is well-developed and well-nourished. Patient is in mild distress. EYES Patient's pupils are equal and round. Extraocular motion is intact SKIN Unremarkable NEURO The patient is alert and oriented 3 PYSCH Patient has normal interpersonal interactions. MUSCULOSKELETAL Patient has tenderness medial and lateral epicondylitis on the right. Limitations: no limitations Course Vital Signs 12/12/21 08:00 Temperature 98.0 F Pulse Rate 84 Respiratory 18 Rate Blood Pressure 149/98 O2 Sat by Pulse 99 Oximetry Disposition Clinical Impression: Epicondylitis Disposition: HOME SELF-CARE Instructions (If sedation given, give patient instructions): Tennis Elbow (ED) Prescriptions: predniSONE [Deltasone] 40 mg PO DAILY #12 tab Is patient prescribed a controlled substance at d/c from ED?: No Referrals: None,Stated [Primary Care Provider] - 1-2 days Abhi Troy DO [Doctor of Osteopathic Medicine] - 1-2 days Time of Disposition: 08:21
[2021-12-12 08:35] VITALS: BP 139/98; PULSE 73; TEMP 98.6
== END 2021-12-12 08:35 | disposition home or self-care (01) ==
LOC: EC 07:37
DX: M77.11 Lateral epicondylitis, right elbow (principal); M77.01 Medial epicondylitis, right elbow; K21.9 Gastro-esophageal reflux disease without esophagitis; F17.200 Nicotine dependence, unspecified, uncomplicated; Z79.899 Other long term (current) drug therapy
CPT/HCPCS: 99283

== ENCOUNTER 2022-02-17 07:34 | Emergency (ER) | payer OTHER ==
[2022-02-17 07:58] VITALS: RESP 18
--- NOTE | 2022-02-17 08:14 | ED ---
General Adult HPI - General Chief complaint: Extremity Injury, Upper Stated complaint: rib pain Time Seen by Provider: 02/17/22 07:39 Source: patient Mode of arrival: ambulatory Limitations: no limitations - History of Present Illness Initial comments: Dictation was produced using [employer] dictation software. please excuse any grammatical, word or spelling errors. Chief Complaint: 46-year-old male presents emergency department for left scapular pain History of Present Illness: 46-year-old male who states that he is here today for left scapular pain. Patient states that he has acute moderate pain to the left scapular area whenever he tries to abduct his left upper extremity. Patient states that he was bowling and ran for his dog to have access to the pole. He states that while carrying a piece of blue material he felt a twinge in his left scapular area. Patient states that he is stranded in the past. Patient here because he thinks that perhaps he may have a rib fracture. Denies any trauma. No shortness of breath. The ROS documented in this emergency department record has been reviewed and confirmed by me. Those systems with pertinent positive or negative responses have been documented in the HPI. All other systems are other negative and/or noncontributory. PHYSICAL EXAM: General Impression: Alert and oriented x3, not in acute distress HEENT: Normocephalic atraumatic, extra-ocular movements intact, pupils equal and reactive to light bilaterally, mucous membranes moist. Cardiovascular: Heart regular rate and rhythm Chest: Able to complete full sentences, no retractions, no tachypnea Musculoskeletal: Pulses present and equal in all extremities, no peripheral edema, palpatory tenderness to the left soft tissues of the scapular area Motor: no focal deficits noted Neurological: CN II-XII grossly intact, no focal motor or sensory deficits noted Skin: Intact with no visualized rashes Psych: Normal affect and mood ED course: 46-year-old male click or presentation consistent with left thoracic back strain. Vital Signs upon arrival are within acceptable limits. Chest x-ray shoulder x-ray shows no acute processes. Patient given a Lidoderm patch. Patient counseled on nonoperative interventions like stretching to improve his symptoms. Patient otherwise instructed to take [id number] rudi lgesics to treat his symptoms. - Related Data Previous Rx's Medication Instructions Recorded HYDROcodone/APAP 5-325MG [[place] 1 tab PO Q6HR PRN 3 Days #12 tab 07/17/21 5-325] Lidocaine 5% Patch [Lidoderm 5% 1 patch TOPICAL DAILY PRN 7 Days 07/17/21 Patch] #7 patch methocarbamoL [Robaxin-750] 750 mg PO BID PRN 7 Days #14 tablet 07/17/21 predniSONE [Deltasone] 40 mg PO DAILY #12 tab 12/12/21 Allergies Allergy/AdvReac Type Severity Reaction Status Date / Time No Known Allergies Allergy Verified 02/17/22 07:39 Review of Systems ROS Statement: Those systems with pertinent positive or pertinent negative responses have been documented in the HPI. ROS Other: All systems not noted in ROS Statement are negative. Past Medical History Past Medical History: GERD/Reflux Additional Past Medical History / Comment(s): Traumatic pneumothorax History of Any Multi-Drug Resistant Organisms: None Reported Additional Past Surgical History / Comment(s): Right sided chest tube; thoravent, polyp removal on pancreas Past Anesthesia/Blood Transfusion Reactions: No Reported Reaction Past Psychological History: No Psychological Hx Reported Smoking Status: Current every day smoker Past Alcohol Use History: Occasional Past Drug Use History: None Reported - Past Family History Mother Family Medical History: Cancer Father Family Medical History: Cancer General Exam Limitations: no limitations Course Vital Signs 02/17/22 02/17/22 07:36 07:57 Temperature 97.8 F Pulse Rate 86 79 Respiratory 20 18 Rate Blood Pressure 152/83 149/96 O2 Sat by Pulse 99 98 Oximetry Disposition Clinical Impression: Back strain Disposition: HOME SELF-CARE Condition: Good Instructions (If sedation given, give patient instructions): Thoracic Back Strain (ED) Is patient prescribed a controlled substance at d/c from ED?: No Referrals: None,Stated [Primary Care Provider] - 1-2 days Time of Disposition: 09:01
--- NOTE | 2022-02-17 08:41 | XR ---
EXAMINATION TYPE: XR chest 2V DATE OF EXAM: 02/17/2022 COMPARISON: 07/17/2021 HISTORY: Chest pain TECHNIQUE: Frontal and lateral views of the chest are obtained. FINDINGS: There is no focal air space opacity. No evidence for pneumothorax. No pleural effusion. The cardiac silhouette size is within normal limits. The osseous structures are grossly intact. IMPRESSION: 1. No acute cardiopulmonary process.
--- NOTE | 2022-02-17 08:42 | XR ---
EXAMINATION TYPE: XR shoulder complete LT DATE OF EXAM: 02/17/2022 CLINICAL HISTORY: pain COMPARISON: NONE TECHNIQUE: Three views of the left shoulder are obtained. FINDINGS: There is no acute fracture/dislocation evident. The acromioclavicular and glenohumeral nick int spaces appear mildly narrowed. The visualized ribs are intact and unremarkable. IMPRESSION: 1. There is no acute fracture or dislocation. ICD 10 NO FRACTURE, INITIAL EVALUATION
[2022-02-17] MEDS ORDERED: LIDOCAINE 5% PATCH TOPICAL SCH (09:00)
[2022-02-17 09:18] VITALS: BP 153/103; PULSE 65; TEMP 96.9
== END 2022-02-17 09:18 | disposition home or self-care (01) ==
LOC: EC 07:34
DX: S39.012A Strain of muscle, fascia and tendon of lower back, initial encounter (principal); F17.200 Nicotine dependence, unspecified, uncomplicated; W01.0XXA Fall on same level from slipping, tripping and stumbling without subsequent striking against object, initial encounter
CPT/HCPCS: 71046

== ENCOUNTER 2022-03-13 07:56 | Emergency (ER) | payer OTHER ==
[2022-03-13] MEDS ORDERED: ORPHENADRINE 30 MG/ML 2 ML VIAL IM STA (08:11)
[2022-03-13] MEDS ORDERED: KETOROLAC 15 MG/ML 1 ML VIAL IM STA (08:11)
--- NOTE | 2022-03-13 08:19 | ED ---
General Adult HPI - General Chief complaint: Back Pain/Injury Stated complaint: back pain Time Seen by Provider: 03/13/22 08:00 Source: patient, RN notes reviewed, old records reviewed Mode of arrival: ambulatory Limitations: no limitations - History of Present Illness Initial comments: This is a 46-year-old male presents emergency Department complaining of right lower back pain and radiates down the back of his leg. Patient states he had this years ago but recently walked on steps and twisted his back and that's when it started. 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 Patient denies any direct blunt trauma to the area. Patient denies any numbness or weakness. Patient denies any urinary symptoms. - Related Data Previous Rx's Medication Instructions Recorded HYDROcodone/APAP 5-325MG [[place] 1 tab PO Q6HR PRN 3 Days #12 tab 07/17/21 5-325] Lidocaine 5% Patch [Lidoderm 5% 1 patch TOPICAL DAILY PRN 7 Days 07/17/21 Patch] #7 patch methocarbamoL [Robaxin-750] 750 mg PO BID PRN 7 Days #14 tablet 07/17/21 predniSONE [Deltasone] 40 mg PO DAILY #12 tab 12/12/21 Cyclobenzaprine [Flexeril] 10 mg PO TID #20 tab 03/13/22 predniSONE [Deltasone] 40 mg PO DAILY #8 tab 03/13/22 Allergies Allergy/AdvReac Type Severity Reaction Status Date / Time No Known Allergies Allergy Verified 03/13/22 08:02 Review of Systems ROS Statement: Those systems with pertinent positive or pertinent negative responses have been documented in the HPI. ROS Other: All systems not noted in ROS Statement are negative. Past Medical History Past Medical History: GERD/Reflux Additional Past Medical History / Comment(s): Traumatic pneumothorax History of Any Multi-Drug Resistant Organisms: None Reported Additional Past Surgical History / Comment(s): Right sided chest tube; t horavent, polyp removal on pancreas Past Anesthesia/Blood Transfusion Reactions: No Reported Reaction Past Psychological History: No Psychological Hx Reported Smoking Status: Current every day smoker Past Alcohol Use History: Occasional Past Drug Use History: None Reported - Past Family History Mother Family Medical History: Cancer Father Family Medical History: Cancer General Exam - General Exam Comments Initial Comments: GENERAL: Patient is well-developed and well-nourished. Patient is nontoxic and well-hydrated and is in mild distress. ENT: Neck is soft and supple. No significant lymphadenopathy is noted. Oropharynx is clear. Moist mucous membranes. Neck has full range of motion without eliciting any pain. EYES: The sclera were anicteric and conjunctiva were pink and moist. Extraocular movements were intact and pupils were equal round and reactive to light. Eyelids were unremarkable. SKIN: Skin is clear with no lesions or rashes and otherwise unremarkable. NEUROLOGIC: Patient is alert and oriented x3. Cranial nerves II through XII are grossly intact. Motor and sensory are also intact. Normal speech, volume and content. Symmetrical smile. MUSCULOSKELETAL: Normal extremities with adequate strength and full range of motion. Patient has some tenderness to right lower quadrant. Patient has negative straight leg test bilaterally LYMPHATICS: No significant lymphadenopathy is noted PSYCHIATRIC: Normal psychiatric evaluation. Limitations: no limitations Course Vital Signs 03/13/22 08:00 Temperature 97.5 F L Pulse Rate 82 Respiratory 20 Rate Blood Pressure 180/100 O2 Sat by Pulse 99 Oximetry Medical Decision Making - Medical Decision Making Patient's lumbosacral spine shows no acute abnormality. Patient received Toradol and Norflex in the emergency department. Disposition Clinical Impression: Sciatica Disposition: HOME SELF-CARE Instructions (If sedation given, give patient instructions): Sciatica (ED) Prescriptions: predniSONE [Deltasone] 40 mg PO DAILY #8 tab Cyclobenzaprine [Flexeril] 10 mg PO TID #20 tab Is patient prescribed a controlled substance at d/c from ED?: No Referrals: None,Stated [Primary Care Provider] - 1-2 days Time of Disposition: 09:08
[2022-03-13] MEDS ORDERED: predniSONE 50 MG TAB PO STA (08:20)
[2022-03-13 09:22] VITALS: BP 128/78; PULSE 78; RESP 16; TEMP 98
--- NOTE | 2022-03-13 09:34 | XR ---
EXAMINATION TYPE: XR lumbosacral spine min 4V DATE OF EXAM: 03/13/2022 8:40 AM INDICATION: Patient age:Male; 46 years old; Reason for study: Back pain; COMPARISON: None TECHNIQUE: Frontal, lateral , bilateral oblique and coned in L5-S1 lateral views of the spine. FINDINGS: No evidence of any acute osseous pathology. No evidence of loss of vertebral body height i s seen. There is normal alignment of the lumbar vertebral bodies. No evidence of any acute osseous pa thology. Mild scattered disc space narrowing. Multilevel marginal osteophyte formation throughout the visualized spine. There is facet joint arthropathy throughout the spine. Scattered at least mild lucila ral foraminal stenosis. IMPRESSION: 1. No acute fracture. 2. Mild multilevel disc degeneration.
== END 2022-03-13 09:20 | disposition home or self-care (01) ==
LOC: EC 07:56
DX: M54.41 Lumbago with sciatica, right side (principal); F17.200 Nicotine dependence, unspecified, uncomplicated
CPT/HCPCS: 99283 ×2; 96372 ×2; 72110; J2360; J1885; J7512

== ENCOUNTER 2022-12-17 21:59 | Emergency (ER) | payer OTHER ==
[2022-12-17 22:07] VITALS: BP 151/99; PULSE 65; RESP 16; TEMP 97.6
[2022-12-17] MEDS ORDERED: DIPH,PERTUS(ACELL)TETVAC-LF 0.5 ML VIAL IM ONE (22:14)
--- NOTE | 2022-12-17 22:14 | ED ---
General Adult HPI - General Chief complaint: Wound/Laceration Stated complaint: Lac on left hand Time Seen by Provider: 12/17/22 22:08 Source: patient, RN notes reviewed Mode of arrival: ambulatory Limitations: no limitations - History of Present Illness Initial comments: 47-year-old male with no significant past medical history presents the emergency department with a chief complaint of left hand laceration. Patient reports that he reached into a pair pain started a experimental box tester cutting his left hand. Bleeding is controlled. No numbness tingling, weakness in the extremity. He is not up-to-date on his tetanus vaccine. Denies anticoagulant use. - Related Data Previous Rx's Medication Instructions Recorded HYDROcodone/APAP 5-325MG [[place] 1 tab PO Q6HR PRN 3 Days #12 tab 07/17/21 5-325] Lidocaine 5% Patch [Lidoderm 5% 1 patch TOPICAL DAILY PRN 7 Days 07/17/21 Patch] #7 patch methocarbamoL [Robaxin-750] 750 mg PO BID PRN 7 Days #14 tablet 07/17/21 predniSONE [Deltasone] 40 mg PO DAILY #12 tab 12/12/21 Cyclobenzaprine [Flexeril] 10 mg PO TID #20 tab 03/13/22 predniSONE [Deltasone] 40 mg PO DAILY #8 tab 03/13/22 Allergies Allergy/AdvReac Type Severity Reaction Status Date / Time No Known Allergies Allergy Verified 12/17/22 22:04 Review of Systems ROS Statement: Those systems with pertinent positive or pertinent negative responses have been documented in the HPI. ROS Other: All systems not noted in ROS Statement are negative. Past Medical History Past Medical History: GERD/Reflux Additional Past Medical History / Comment(s): Traumatic pneumothorax History of Any Multi-Drug Resistant Organisms: None Reported Additional Past Surgical History / Comment(s): Right sided chest tube; thoravent, polyp removal on pancreas Past Anesthesia/Blood Transfusion Reactions: No Reported Reaction Past Psychological History: No Psychological Hx Reported Smoking Status: Current every day smoker Past Alcohol Use History: Occasional Past Drug Use History: None Reported - Past Family History Mother Family Medical History: Cancer Father Family Medical History: Cancer General Exam - General Exam Comments Initial Comments: General: Alert, in no acute distress Head: atraumatic normocephalic. Eyes PERRL, EOMI intact, mucous membranes moist Respiratory: Lungs clear to auscultation bilaterally Cardiovascular: Rate regular rate and rhythm Abdominal: Soft without guarding or rebound Extremities: Normal inspection with full range of motion and normal capillary refill, 2 cm laceration to his left carpal region, no crepitus. Full range of motion. 2+ radial pulses. Neuroogic: alert and oriented 3, CN II-XII intact, able to ambulate with steady gait Skin: warm dry and intact with normal color Limitations: no limitations Course Vital Signs 12/17/22 22:04 Temperature 97.6 F Pulse Rate 65 Respiratory 16 Rate Blood Pressure 151/99 O2 Sat by Pulse 99 Oximetry Procedures - Laceration Laceration #1 Indication: laceration Site: other (Left hand) Depth: simple, single layer Anesthetic Used: lidocaine 1% Anesthesia Technique: local infiltration Amount (mls): 10 Pre-repair: wound explored, irrigated extensively Type of Sutures: vicryl Size of Sutures: 5-0 Number of Sutures: 3 Technique: simple, interrupted Complications: pain, bleeding, nerve injury, allergic reaction Patient Tolerated Procedure: well, no complications Additional Comments: Distal NVI remains intact status post suture placement Medical Decision Making - Medical Decision Making Was pt. sent in by a medical professional or institution (, PA, SALES REPRESENTATIVE BUSINESS COURSES, urgent care, hospital, or shelter...) When possible be specific @ -[No] Did you speak to anyone other than the patient for history (EMS, parent, family, police, friend...)? What history was obtained from this source @ -[No] Did you review nursing and triage notes (agree or disagree)? Why? @ -[I reviewed and agree with nursing and triage notes] Were old charts reviewed (outside hosp., previous admission, EMS record, old EKG, old radiological studies, urgent care reports/EKG's, shelter records)? Report findings @ -[No old charts were reviewed] Differential Diagnosis (chest pain, altered mental status, abdominal pain women, abdominal pain men, vaginal bleeding, weakness, fever, dyspnea, syncope, headache, dizziness, GI bleed, back pain, seizure, CVA, palpatations, mental health, musculoskeletal)? @ -[not applicable] EKG interpreted by me (3pts min.). @ -[As above] X-rays interpreted by me (1pt min.). @ -[None done] CT interpreted by me (1pt min.). @ -[None done] U/S interpreted by me (1pt. min.). @ -[None done] What testing was considered but not performed or refused? (CT, X-rays, U/S, l abs)? Why? @ -[None] What meds were considered but not given or refused? Why? @ -[None] Did you discuss the management of the patient with other professionals (professionals i.e. , PA, SALES REPRESENTATIVE BUSINESS COURSES, lab, RT, psych nurse, long term care social worker, fashion model, teacher, chief juvenile probation officer, foster care case manager)? Give summary @ -[No] Was smoking cessation discussed for >3mins.? @ -[No] Was critical care preformed (if so, how long)? @ -[No] Were there social determinants of health that impacted care today? How? (Homelessness, low income, unemployed, alcoholism, drug addiction, transportation, low edu. Level, literacy, decrease access to med. care, custodial, rehab)? @ -[No] Was there de-escalation of care discussed even if they declined (Discuss DNR or withdrawal of care, Hospice)? DNR status @ -[No] What co-morbidities impacted this encounter? (DM, HTN, Smoking, COPD, CAD, Cancer, CVA, ARF, Chemo, Hep., AIDS, mental health diagnosis, sleep apnea, morbid obesity)? @ -[None] Was patient admitted / discharged? Hospital course, mention meds given and route, prescriptions, significant lab abnormalities, going to OR and other p ertinent info. @ -47-year-old male presents to the emergency department with a chief complaint of hand laceration. Patient had 3 sutures placed which she tolerated well. Distal NVI remains intact status post suture placement. Return precautions were discussed. Patient discharged in stable condition. Case discussed with Dr. Page who agrees with plan of care Undiagnosed new problem with uncertain prognosis? @ -[No] Drug Therapy requiring intensive monitoring for toxicity (Heparin, Nitro, Insulin, Cardizem)? @ -[No] Were any procedures done? @ -[No] Diagnosis/symptom? @ -left hand laceration Acute, or Chronic, or Acute on Chronic? @ -acute Uncomplicated (without systemic symptoms) or Complicated (systemic symptoms)? @ -uncomplicated Side effects of treatment? @ -[No] Exacerbation, Progression, or Severe Exacerbation? @ -[No] Poses a threat to life or bodily function? How? (Chest pain, [place], [place], pneumonia, PE, COPD, DKA, ARF, appy, cholecystitis, CVA, Diverticulitis, Homicidal, Suicidal, threat to staff... and all critical care pts) @ -low likleihood Disposition Clinical Impression: Laceration Disposition: HOME SELF-CARE Condition: Stable Instructions (If sedation given, give patient instructions): Care For Your Stitches (DC), Laceration (ED) Additional Instructions: Decision to the nearest emergency department symptoms worsen or persist Is patient prescribed a controlled substance at d/c from ED?: No Referrals: Jack Villasenor MD [Primary Care Provider] - 1-2 days Time of Disposition: 22:55
== END 2022-12-17 23:13 | disposition home or self-care (01) ==
LOC: EC 21:59
DX: S61.412A Laceration without foreign body of left hand, initial encounter (principal); F17.200 Nicotine dependence, unspecified, uncomplicated; Z23 Encounter for immunization; W26.0XXA Contact with knife, initial encounter
CPT/HCPCS: 12001; 90471; 90715; 99153; 99282

== ENCOUNTER 2022-12-28 05:38 | Emergency (ER) | payer OTHER ==
[2022-12-28 05:44] VITALS: BP 132/94; PULSE 90; RESP 18; TEMP 98
[2022-12-28] MEDS ORDERED: PROPARACAINE 0.5% OPHTH DROPS 15 ML BTL RIGHT EYE STA (05:46)
[2022-12-28] MEDS ORDERED: SODIUM CHLORIDE 0.9% 1,000 ML IV STA (05:46)
--- NOTE | 2022-12-28 06:17 | ED ---
Eye Problem HPI - General Chief complaint: Eye Problems Stated complaint: ACID SOULUTION IN EYES Time Seen by Provider: 12/28/22 05:51 Source: patient, RN notes reviewed Mode of arrival: ambulatory Limitations: no limitations - History of Present Illness Initial comments: 47-year-old male presents emergency Department with chief complaint of right eye chemical exposure. Patient states that he was at work and there is wash takes for acid he states is small drop of blood on his classes. He felt some slight irritation any washout. He states he has no current symptoms no blurred vision no pain no visual disturbance. Patient states he has no burning sensation no other complaints. - Related Data Previous Rx's Medication Instructions Recorded HYDROcodone/APAP 5-325MG [[place] 1 tab PO Q6HR PRN 3 Days #12 tab 07/17/21 5-325] Lidocaine 5% Patch [Lidoderm 5% 1 patch TOPICAL DAILY PRN 7 Days 07/17/21 Patch] #7 patch methocarbamoL [Robaxin-750] 750 mg PO BID PRN 7 Days #14 tablet 07/17/21 predniSONE [Deltasone] 40 mg PO DAILY #12 tab 12/12/21 Cyclobenzaprine [Flexeril] 10 mg PO TID #20 tab 03/13/22 predniSONE [Deltasone] 40 mg PO DAILY #8 tab 03/13/22 Allergies Allergy/AdvReac Type Severity Reaction Status Date / Time No Known Allergies Allergy Verified 12/28/22 05:41 Review of Systems ROS Statement: Those systems with pertinent positive or pertinent negative responses have been documented in the HPI. ROS Other: All systems not noted in ROS Statement are negative. Past Medical History Past Medical History: GERD/Reflux Additional Past Medical History / Comment(s): Traumatic pneumothorax History of Any Multi-Drug Resistant Organisms: None Reported Additional Past Surgical History / Comment(s): Right sided chest tube; thoravent, polyp removal on pancreas Past Anesthesia/Blood Transfusion Reactions: No Reported Reaction Past Psychological History: No Psychological Hx Reported Smoking Status: Current every day smoker Past Alcohol Use History: Occasional Past Drug Use History: None Reported - Past Family History Mother Family Medical History: Cancer Father Family Medical History: Cancer General Exam Limitations: no limitations General appearance: alert, in no apparent distress Head exam: Present: atraumatic, normocephalic, normal inspection Eye exam: Present: normal appearance, PERRL, EOMI, other (PH 7.0). Absent: scl eral icterus, conjunctival injection, periorbital swelling ENT exam: Present: normal exam, normal oropharynx, mucous membranes moist Neck exam: Present: normal inspection, full ROM. Absent: tenderness, meningismus, lymphadenopathy Respiratory exam: Present: normal lung sounds bilaterally. Absent: respiratory distress, wheezes, rales, rhonchi, stridor Cardiovascular Exam: Present: regular rate, normal rhythm, normal heart sounds. Absent: systolic murmur, diastolic murmur, rubs, gallop, clicks Course Vital Signs 12/28/22 05:42 Temperature 98 F Pulse Rate 90 Respiratory 18 Rate Blood Pressure 132/94 O2 Sat by Pulse 98 Oximetry Medical Decision Making - Medical Decision Making Was pt. sent in by a medical professional or institution (, PA, MAIL CENSOR, urgent care, hospital, or retirement...) When possible be specific @ -none Did you speak to anyone other than the patient for history (EMS, parent, family, police, friend...)? What history was obtained from this source @ -No Did you review nursing and triage notes (agree or disagree)? Why? @ -I reviewed and agree with nursing and triage notes Were old charts reviewed (outside hosp., previous admission, EMS record, old EKG, old radiological studies, urgent care reports/EKG's, retirement records)? Report findings @ -No old charts were reviewed Differential Diagnosis (chest pain, altered mental status, abdominal pain women, abdominal pain men, vaginal bleeding, weakness, fever, dyspnea, syncope, headache, dizziness, GI bleed, back pain, seizure, CVA, palpatations, mental health, musculoskeletal)? @ -Conjunctivitis, chemical irritation,, chemical exposure EKG interpreted by me (3pts min.). @ -None X-rays interpreted by me (1pt min.). @ -None done CT interpreted by me (1pt min.). @ -None done U/S interpreted by me (1pt. min.). @ -None done What testing was considered but not performed or refused? (CT, X-rays, U/S, labs)? Why? @ -None What meds were considered but not given or refused? Why? @ -None Did you discuss the management of the patient with other professionals (professionals i.e. , PA, MAIL CENSOR, lab, RT, psych nurse, social insurance administrator, underwriting service representative, teacher, contracting officer, piano case and bench assembler)? Give summary @ -No Was smoking cessation discussed for >3mins.? @ -No Was critical care preformed (if so, how long)? @ -No Were there social determinants of health that impacted care today? How? (Homelessness, low income, unemployed, alcoholism, drug addiction, transportation, low edu. Level, literacy, decrease access to med. care, skilled nursing, rehab)? @ -No Was there de-escalation of care discussed even if they declined (Discuss DNR or withdrawal of care, Hospice)? DNR status @ -No What co-morbidities impacted this encounter? (DM, HTN, Smoking, COPD, CAD, Cancer, CVA, ARF, Chemo, Hep., AIDS, mental health diagnosis, sleep apnea, morbid obesity)? @ -None Was patient admitted / discharged? Hospital course, mention meds given and route, prescriptions, significant lab abnormalities, going to OR and other pertinent info. @ -Discharge patient is asymptomatic patient had small diluted Cleaning solution going to his right eye he has no evidence of chemical burn current conjunctivitis. PH is 7.0. Patient has normal visual acuity. Patient advised to use artificial tears if any discomfort and to return the emergency Department. Undiagnosed new problem with uncertain prognosis? @ -No Drug Therapy requiring intensive monitoring for toxicity (Heparin, Nitro, Insulin, Cardizem)? @ -No Were any procedures done? @ -No Diagnosis/symptom? @ -Right eye chemical exposure Acute, or Chronic, or Acute on Chronic? @ -Acute Uncomplicated (without systemic symptoms) or Complicated (systemic symptoms)? @ -Uncomplicated Side effects of treatment? @ -No Exacerbation, Progression, or Severe Exacerbation? @ -No Poses a threat to life or bodily function? How? (Chest pain, [place], [place], pneumonia, PE, COPD, DKA, ARF, appy, cholecystitis, CVA, Diverticulitis, Homicidal, Suicidal, threat to staff... and all critical care pts) @ -No Disposition Clinical Impression: Chemical exposure of eye Disposition: HOME SELF-CARE Condition: Stable Instructions (If sedation given, give patient instructions): Eye Wash (Into the eye) Additional Instructions: Please return to the Emergency Department if symptoms worsen or any other concerns. Is patient prescribed a controlled substance at d/c from ED?: No Referrals: Jack Villasenor MD [Primary Care Provider] - 1-2 days Time of Disposition: 06:16
== END 2022-12-28 06:35 | disposition home or self-care (01) ==
LOC: EC 05:38
DX: Z77.098 Contact with and (suspected) exposure to other hazardous, chiefly nonmedicinal, chemicals (principal); F17.200 Nicotine dependence, unspecified, uncomplicated
CPT/HCPCS: 99283

== ENCOUNTER 2023-02-19 13:52 | Emergency (ER) | payer OTHER ==
[2023-02-19] MEDS ORDERED: IBUPROFEN 800 MG TAB PO STA (14:50)
--- NOTE | 2023-02-19 15:32 | XR ---
EXAMINATION TYPE: XR shoulder complete 3 views LT DATE OF EXAM: 02/19/2023 Comparison: 02/17/2022 Clinical History: 47-year-old male left shoulder pain Findings: Mild to moderate degenerative change at the AC joint with capsule hypertrophy and marginal spurring. Subacromial space is preserved. No acute fracture, subluxation, dislocation. Old healed fifth lateral left rib fracture deformity. Impression: [id number] AC joint OA. No acute osseous abnormality seen.
--- NOTE | 2023-02-19 15:37 | ED ---
General Adult HPI - General Chief complaint: Extremity Injury, Upper Stated complaint: lt shoulder pain Time Seen by Provider: 02/19/23 14:34 Source: patient, RN notes reviewed Mode of arrival: ambulatory Limitations: no limitations - History of Present Illness Initial comments: A 47-year-old male with no significant past medical history presents to the emergency Department chief complaint of left shoulder pain. Patient reports worsening pain with movement for the last 2 weeks. He was working above his head when the initial injury occurred. He has been trying Tylenol Motrin without symptomatic relief. He denies any injury. He denies any numbness, weakness, numbness in the extremity. - Related Data Previous Rx's Medication Instructions Recorded HYDROcodone/APAP 5-325MG [[place] 1 tab PO Q6HR PRN 3 Days #12 tab 07/17/21 5-325] Lidocaine 5% Patch [Lidoderm 5% 1 patch TOPICAL DAILY PRN 7 Days 07/17/21 Patch] #7 patch methocarbamoL [Robaxin-750] 750 mg PO BID PRN 7 Days #14 tablet 07/17/21 predniSONE [Deltasone] 40 mg PO DAILY #12 tab 12/12/21 Cyclobenzaprine [Flexeril] 10 mg PO TID #20 tab 03/13/22 predniSONE [Deltasone] 40 mg PO DAILY #8 tab 03/13/22 Ibuprofen [Motrin] 800 mg PO Q8HR PRN #30 tab 02/19/23 Allergies Allergy/AdvReac Type Severity Reaction Status Date / Time No Known Allergies Allergy Verified 02/19/23 14:30 Review of Systems ROS Statement: Those systems with pertinent positive or pertinent negative responses have been documented in the HPI. ROS Other: All systems not noted in ROS Statement are negative. Past Medical History Past Medical History: GERD/Reflux Additional Past Medical History / Comment(s): Traumatic pneumothorax History of Any Multi-Drug Resistant Organisms: None Reported Additional Past Surgical History / Comment(s): Right sided chest tube; thoravent, polyp removal on pancreas Past Anesthesia/Blood Transfusion Reactions: No Reported Reaction Past Psychological History: No Psychological Hx Reported Smoking Status: Current every day smoker Past Alcohol Use History: Occasional Past Drug Use History: None Reported - Past Family History Mother Family Medical History: Cancer Father Family Medical History: Cancer General Exam - General Exam Comments Initial Comments: General: Alert, in no acute distress Head: atraumatic normocephalic. Eyes PERRL, EOMI intact, mucous membranes moist Respiratory: Lungs clear to auscultation bilaterally Cardiovascular: Heart rate regular rate and Abdominal: Soft without guarding or rebound Extremities: Normal inspection with full range of motion and normal capillary refill, left shoulder without any evidence of trauma, ecchymosis, erythema or deformity. Limited range of motion secondary to pain. Mild tenderness to palpation infraspinatus region. 2+ radial pulses. Distal neurovascularly intact. Neuroogic: alert and oriented 3, CN II-XII intact, able to ambulate with steady gait Skin: warm dry and intact with normal color Limitations: no limitations Course Vital Signs 02/19/23 02/19/23 14:28 15:53 Temperature 97.8 F 97.6 F Pulse Rate 74 65 Respiratory 20 18 Rate Blood Pressure 144/88 137/93 O2 Sat by Pulse 98 97 Oximetry Medical Decision Making - Medical Decision Making Was pt. sent in by a medical professional or institution (, PA, CAFE OR RESTAURANT MANAGER, urgent care, hospital, or fpc...) When possible be specific @ -[No] Did you speak to anyone other than the patient for history (EMS, parent, family, police, friend...)? What history was obtained from this source @ -[No] Did you review nursing and triage notes (agree or disagree)? Why? @ -[I reviewed and agree with nursing and triage notes] Were old charts reviewed (outside hosp., previous admission, EMS record, old EKG, old radiological studies, urgent care reports/EKG's, fpc records)? Report findings @ -[No old charts were reviewed] Differential Diagnosis (chest pain, altered mental status, abdominal pain women, abdominal pain men, vaginal bleeding, weakness, fever, dyspnea, syncope, headache, dizziness, GI bleed, back pain, seizure, CVA, palpatations, mental health, musculoskeletal)? @ -[not applicable] EKG interpreted by me (3pts min.). @ -[As above] X-rays interpreted by me (1pt min.). @Left shoulder x-ray negative for any evidence of acute fracture or dislocation. There is mild arthritis to the AC joint CT interpreted by me (1pt min.). @ -[None done] U/S interpreted by me (1pt. min.). @ -[None done] What testing was considered but not performed or refused? (CT, X-rays, U/S, labs)? Why? @ -[None] What meds were considered but not given or refused? Why? @ -[None] Did you discuss the management of the patient with other professionals (professionals i.e. , PA, CAFE OR RESTAURANT MANAGER, lab, RT, psych nurse, medical social consultant, circle beveler, teacher, staff combat information center officer, rn case management)? Give summary @ -[No] Was smoking cessation discussed for >3mins.? @ -[No] Was critical care preformed (if so, how long)? @ -[No] Were there social determinants of health that impacted care today? How? (Homelessness, low income, unemployed, alcoholism, drug addiction, transportation, low edu. Level, literacy, decrease access to med. care, nursing home, rehab)? @ -[No] Was there de-escalation of care discussed even if they declined (Discuss DNR or withdrawal of care, Hospice)? DNR status @ -[No] What co-morbidities impacted this encounter? (DM, HTN, Smoking, COPD, CAD, Cancer, CVA, ARF, Chemo, Hep., AIDS, mental health diagnosis, sleep apnea, morbid obesity)? @ -[None] Was patient admitted / discharged? Hospital course, mention meds given and route, prescriptions, significant lab abnormalities, going to OR and other pertinent info. @ -Discharged. This is a pleasant 47-year-old male who presents to the emergency department with left shoulder pain. Patient had a thorough history and physical exam performed. Left shoulder without any evidence of trauma or deformity. Limited range of motion secondary to pain. 2+ radial pulses distal neurovascularly intact. Patient had x-rays which were negative. He was given Motrin with mild symptomatically relief. Patient was provided a sling. I discussed results in detail with the patient verbalized understanding all questions were addressed. With recommend follow up with orthopedics within 7 days. Return precautions were discussed at length. Patient discharged in stable condition. Discussed with JENNIFER Bhatt who agrees with plan of care Undiagnosed new problem with uncertain prognosis? @ -[No] Drug Therapy requiring intensive monitoring for toxicity (Heparin, Nitro, Insulin, Cardizem)? @ -[No] Were any procedures done? @ -[No] Diagnosis/symptom? @ -Left shoulder pain Acute, or Chronic, or Acute on Chronic? @ -Acute Uncomplicated (without systemic symptoms) or Complicated (systemic symptoms)? @ -Uncomplicated Side effects of treatment? @ -[No] Exacerbation, Progression, or Severe Exacerbation? @ -[No] Poses a threat to life or bodily function? How? (Chest pain, [place], [place], pneumonia, PE, COPD, DKA, ARF, appy, cholecystitis, CVA, Diverticulitis, Homicidal, Suicidal, threat to staff... and all critical care pts) @ -Low likelihood Disposition Clinical Impression: Left shoulder pain Disposition: HOME SELF-CARE Condition: Stable Additional Instructions: Please take Tylenol Motrin as needed for pain Please keep shoulder immobilizer or sling during the day Please return to the nearest emergency department symptoms worsen or persist Prescriptions: Ibuprofen [Motrin] 800 mg PO Q8HR PRN #30 tab PRN Reason: Pain Is patient prescribed a controlled substance at d/c from ED?: No Referrals: None,Stated [Primary Care Provider] - 1-2 days Omari Whiting DO [Doctor of Osteopathic Medicine] - 1-2 days Time of Disposition: 15:38
[2023-02-19 15:55] VITALS: BP 137/93; PULSE 65; RESP 18; TEMP 97.6
== END 2023-02-19 16:00 | disposition home or self-care (01) ==
LOC: EC 13:52
DX: M25.512 Pain in left shoulder (principal); F17.200 Nicotine dependence, unspecified, uncomplicated
CPT/HCPCS: 73030; 99283; L3670

== ENCOUNTER → 2023-03-19 | Outpatient (CLI) | payer OTHER ==
--- NOTE | 2023-03-20 09:11 | MR ---
EXAMINATION TYPE: MR shoulder LT wo con DATE OF EXAM: 03/19/2023 COMPARISON: None HISTORY: Left shoulder pain TECHNIQUE: Multiplanar, multisequence imaging of the left shoulder is performed without contrast. FINDINGS: The osseous structures are intact there is no bone contusion or fracture. A few tiny subchondral cyst s in the lateral humeral head. There is marked degenerative change of the AC joint resulting in mild shoulder impingement. There is marked tendinosis of both the infraspinatus and supraspinatus tendons with small rim rent te ars of both tendons but no retraction of the musculotendinous junctions. There is intrasubstance tear of the subscapularis tendon near its attachment to the humeral head. There is a split intrasubstance tear of the long head of the biceps tendon but the biceps anchor is i ntact. There is a SLAP injury of the superior cartilaginous labrum. There is no joint effusion or bursitis. IMPRESSION: 1. Marked degenerative changes AC joint resulting in mild shoulder impingement. 2. Partial thickness tears and tendinosis of the supraspinatus, infraspinatus and subscapularis tendo ns. No retraction of the musculotendinous junctions. 3. intrasubstance split tear of the biceps tendon with an intact biceps anchor. 4. SLAP injury of the superior cartilaginous labrum.
== END | disposition home or self-care (01) ==
LOC: RADMRIMAIN 17:14
PROVIDERS: ATTEND Orthopaedic Surgery Sports Medicine
DX: S46.012A Strain of muscle(s) and tendon(s) of the rotator cuff of left shoulder, initial encounter (principal); M19.012 Primary osteoarthritis, left shoulder; M25.812 Other specified joint disorders, left shoulder; M67.814 Other specified disorders of tendon, left shoulder; X58.XXXA Exposure to other specified factors, initial encounter

== ENCOUNTER 2024-01-29 17:51 | Emergency (ER) | payer OTHER ==
--- NOTE | 2024-01-29 18:17 | ED ---
Burn/Smoke HPI - General Chief complaint: Burn/Smoke Inhalation Stated complaint: [facility] arm burn Time Seen by Provider: 01/29/24 18:05 Source: patient, RN notes reviewed Mode of arrival: ambulatory Limitations: no limitations - History of Present Illness Initial comments: This is a 48-year-old male presents emergency department chief complaint of a burn to his right forearm. Patient states that at work when he accidentally hit his right arm on a metal pole. Patient is having pain directly over the thomason. He believes that his last tetanus vaccination was in the last 10 years. denies paresthesias or loss of motor function over the areas of the burn. He denies other injuries during this event. No other acute complaints at this time. - Related Data Previous Rx's Medication Instructions Recorded HYDROcodone/APAP 5-325MG [Harmony 1 tab PO Q6HR PRN 3 Days #12 tab 07/17/21 5-325] Lidocaine 5% Patch [Lidoderm 5% 1 patch TOPICAL DAILY PRN 7 Days 07/17/21 Patch] #7 patch methocarbamoL [Robaxin-750] 750 mg PO BID PRN 7 Days #14 tablet 07/17/21 predniSONE [Deltasone] 40 mg PO DAILY #12 tab 12/12/21 Cyclobenzaprine [Flexeril] 10 mg PO TID #20 tab 03/13/22 predniSONE [Deltasone] 40 mg PO DAILY #8 tab 03/13/22 Ibuprofen [Motrin] 800 mg PO Q8HR PRN #30 tab 02/19/23 Allergies Allergy/AdvReac Type Severity Reaction Status Date / Time No Known Allergies Allergy Verified 02/19/23 14:30 Review of Systems ROS Statement: Those systems with pertinent positive or pertinent negative responses have been documented in the HPI. ROS Other: All systems not noted in ROS Statement are negative. Past Medical History Past Medical History: GERD/Reflux Additional Past Medical History / Comment(s): Traumatic pneumothorax History of Any Multi-Drug Resistant Organisms: None Reported Additional Past Surgical History / Comment(s): Right sided chest tube; thoravent, polyp removal on pancreas Past Anesthesia/Blood Transfusion Reactions: No Reported Reaction Past Psychological History: No Psychological Hx Reported Smoking Status: Current every day smoker Past Alcohol Use History: Occasional Past Drug Use History: None Reported - Past Family History Mother Family Medical History: Cancer Father Family Medical History: Cancer General Exam Limitations: no limitations General appearance: alert, in no apparent distress Head exam: Present: atraumatic, normocephalic, normal inspection Eye exam: Present: normal appearance, PERRL, EOMI. Absent: scleral icterus, conjunctival injection, periorbital swelling ENT exam: Present: normal exam, mucous membranes moist Neck exam: Present: normal inspection. Absent: tenderness, meningismus, lymphadenopathy Respiratory exam: Present: normal lung sounds bilaterally. Absent: respiratory distress, wheezes, rales, rhonchi, stridor Cardiovascular Exam: Present: regular rate, normal rhythm, normal heart sounds. Absent: systolic murmur, diastolic murmur, rubs, gallop, clicks GI/Abdominal exam: Present: soft, normal bowel sounds. Absent: distended, tenderness, guarding, rebound, rigid Right Upper Arm exam: Present: other (2nd degree burn over the medial proximal forearm ~ 1% TBSA) Back exam: Present: normal inspection Neurological exam: Present: alert, oriented X3, CN II-XII intact Skin exam: Present: warm, dry, other (1st and 2nd degree thomason aprox 3% TBSA). Absent: urticaria, vesicles Course Vital Signs 01/29/24 01/29/24 01/29/24 17:57 19:20 20:55 Temperature 97.7 F 98.2 F Pulse Rate 105 H 75 78 Respiratory 16 18 18 Rate Blood Pressure 160/100 152/100 152/98 O2 Sat by Pulse 98 99 99 Oximetry Procedures - Burn Care/Dressing right arm Type of Dressing: antibiotic ointment, non-stick Neurovascular Functions Intact After Dressing Application: Yes Debridement Necessary: No Patient Tolerated Procedure: well Medical Decision Making - Medical Decision Making Was pt. sent in by a medical professional or institution (, PA, UNIX SYSTEM ADMINISTRATOR, urgent care, hospital, or residential...) When possible be specific @ -No Did you speak to anyone other than the patient for history (EMS, parent, family, police, friend...)? What history was obtained from this source @ -No Did you review nursing and triage notes (agree or disagree)? Why? @ -I reviewed and agree with nursing and triage notes Were old charts reviewed (outside hosp., previous admission, EMS record, old EKG, old radiological studies, urgent care reports/EKG's, residential records)? Report findings @ -No old charts were reviewed Differential Diagnosis (chest pain, altered mental status, abdominal pain women, abdominal pain men, vaginal bleeding, weakness, fever, dyspnea, syncope, headache, dizziness, GI bleed, back pain, seizure, CVA, palpatations, mental health, musculoskeletal)? @ -first degree burn, second-degree burn, third-degree burn, this list is not all inclusive EKG interpreted by me (3pts min.). @ -None X-rays interpreted by me (1pt min.). @ -None done CT interpreted by me (1pt min.). @ -None done U/S interpreted by me (1pt. min.). @ -None done What testing was considered but not performed or refused? (CT, X-rays, U/S, labs)? Why? @ -None What meds were considered but not given or refused? Why? @ -None Did you discuss the management of the patient with other professionals (professionals i.e. , PA, UNIX SYSTEM ADMINISTRATOR, lab, RT, psych nurse, renal social worker, book mender, teacher, marine safety officer, counseling case manager)? Give summary @ -No Was smoking cessation discussed for >3mins.? @ -No Was critical care preformed (if so, how long)? @ -No Were there social determinants of health that impacted care today? How? (Homelessness, low income, unemployed, alcoholism, drug addiction, transportation, low edu. Level, literacy, decrease access to med. care, retirement, rehab)? @ -No Was there de-escalation of care discussed even if they declined (Discuss DNR or withdrawal of care, Hospice)? DNR status @ -No What co-morbidities impacted this encounter? (DM, HTN, Smoking, COPD, CAD, Cancer, CVA, ARF, Chemo, Hep., AIDS, mental health diagnosis, sleep apnea, morbid obesity)? @ -None Was patient admitted / discharged? Hospital course, mention meds given and route, prescriptions, significant lab abnormalities, going to OR and other pertinent info. @ -Discharged. 48-year-old male with complaint of right arm thomason. On examination there is noted to be approximately 3% of the total body surface area with thomason ranging the first and second-degree. Approximately 1.5% of total body surface area second-degree thomason over the right forearm and right arm, areas open blistered and nonblanching. He is provided with tetanus vaccination, fluids, pain medication. Area was thoroughly cleansed with sterile water and Betadine solution. Mupirocin applied over open skin and wound dressing applied. Patient provided with referral to wound center. All questions answered at bedside and strict return parameters randy with the patient he is verbalized understanding. Discussed with Dr. George Undiagnosed new problem with uncertain prognosis? @ -No Drug Therapy requiring intensive monitoring for toxicity (Heparin, Nitro, Insulin, Cardizem)? @ -No Were any procedures done? @ -No Diagnosis/symptom? @ -Second-degree thomason, first degree thomason Acute, or Chronic, or Acute on Chronic? @ -Acute Uncomplicated (without systemic symptoms) or Complicated (systemic symptoms)? @ -uncomplicated Side effects of treatment? @ -No Exacerbation, Progression, or Severe Exacerbation? @ -No Poses a threat to life or bodily function? How? (Chest pain, [place], [place], pneumonia, PE, COPD, DKA, ARF, appy, cholecystitis, CVA, Diverticulitis, Homicidal, Suicidal, threat to staff... and all critical care pts) @ -No Disposition Clinical Impression: Second degree burn Disposition: HOME SELF-CARE Condition: Good Instructions (If sedation given, give patient instructions): Second-Degree Burn (ED) Additional Instructions: Return to the emergency department for any new or worsening symptoms. Use topical antibiotic ointment over areas of open skin 1 time per day and continue to keep area clean and dry. Follow-up with health care marketing specialist. Is patient prescribed a controlled substance at d/c from ED?: No Referrals: None,Stated [Primary Care Provider] - 1-2 days [facility] [NON-STAFF] - 1-2 days
[2024-01-29] MEDS: SODIUM CHLORIDE 0.9% 1,000 ML IV STA (18:40)
[2024-01-29] MEDS: DIPH,PERTUS(ACELL)TETVAC-LF 0.5 ML VIAL IM ONE (18:40)
[2024-01-29] MEDS: HYDROmorphone 1 MG/ML 1 ML SYRINGE IVP STA (18:44)
[2024-01-29 19:21] VITALS: RESP 18
[2024-01-29] MEDS: MUPIROCIN 2% OINT 22 GM TUBE TOPICAL STA (19:47)
[2024-01-29 21:06] VITALS: BP 152/98; PULSE 78; TEMP 98.2
== END 2024-01-29 21:06 | disposition home or self-care (01) ==
LOC: EC 17:51
DX: T23.201A Burn of second degree of right hand, unspecified site, initial encounter (principal); F17.200 Nicotine dependence, unspecified, uncomplicated; T31.0 Burns involving less than 10% of body surface; Z23 Encounter for immunization
CPT/HCPCS: 90715; 99283; 96374; 96361; 90471; J1170

== ENCOUNTER → 2024-01-31 | Outpatient (CLI) | payer OTHER ==
--- NOTE | 2024-01-31 10:29 | XR ---
EXAMINATION TYPE: XR femur RT DATE OF EXAM: 01/31/2024 CLINICAL HISTORY: pain TECHNIQUE: Two views of the right femur are obtained. COMPARISON: None. FINDINGS: There is no acute fracture or dislocation seen of the femur. The hip and knee joints appear within normal limits. The overlying soft tissue appears unremarkable. IMPRESSION: There is no acute fracture or dislocation seen of the femur. ICD 10 NO FRACTURE, INITIAL EVALUATION
--- NOTE | 2024-01-31 10:29 | XR ---
EXAMINATION TYPE: XR Hip Complete RT DATE OF EXAM: 01/31/2024 CLINICAL HISTORY: pain TECHNIQUE: AP and frogleg views of the right hip are obtained. COMPARISON: None. FINDINGS: There is no acute fracture/dislocation evident. The joint space appears within normal li mits. The overlying soft tissue appears unremarkable. IMPRESSION: 1. There is no acute fracture or dislocation. ICD 10 NO FRACTURE, INITIAL EVALUATION
--- NOTE | 2024-01-31 10:36 | XR ---
EXAMINATION TYPE: XR lumbar spine 2 or 3V DATE OF EXAM: 01/31/2024 CLINICAL HISTORY: pain TECHNIQUE: Three views of the lumbar spine are submitted. COMPARISON: None. FINDINGS: There are 5 lumbar type vertebral bodies identified. The lumbar spine shows satisfactory alignment w ithout evidence of acute fracture or dislocation. Vertebral body heights are within normal limits. Mild degenerative disc space narrowing and spondylosis. The overlying soft tissue appears unremarkab le. IMPRESSION: No acute fracture or dislocation is seen in the lumbar spine. ICD 10 NO FRACTURE, INITIAL EVALUATION
== END | disposition home or self-care (01) ==
LOC: RADXRMAIN 09:39
PROVIDERS: ATTEND Emergency Medicine
DX: S39.012A Strain of muscle, fascia and tendon of lower back, initial encounter (principal); S70.12XA Contusion of left thigh, initial encounter
CPT/HCPCS: 72100; 73502

== ENCOUNTER → 2024-03-05 | Outpatient (CLI) | payer OTHER ==
--- NOTE | 2024-03-05 10:45 | XR ---
EXAMINATION TYPE: XR elbow complete RT DATE OF EXAM: 03/05/2024 10:39 AM INDICATION: Patient age:Male; 48 years old; Reason for study: S53.401D UNSPEC SPRAIN OF RIGHT ELBOW, SUBSEQUENT ENCOUNTER; [facility]. COMPARISON: None TECHNIQUE: The right elbow was examined in AP, lateral, and oblique projections. FINDINGS: No evidence of any acute osseous pathology, joint dislocation, or soft tissue swelling is n oted. No evidence of joint effusion is present. No radiopaque foreign body. IMPRESSION: No evidence of acute fracture.
== END | disposition home or self-care (01) ==
LOC: RADXRMAIN 10:19
PROVIDERS: ATTEND Emergency Medicine
DX: S53.401D Unspecified sprain of right elbow, subsequent encounter (principal)

== ENCOUNTER 2024-08-25 12:47 | Emergency (ER) | payer OTHER ==
[2024-08-25 13:03] VITALS: TEMP 98
--- NOTE | 2024-08-25 14:14 | XR ---
EXAMINATION TYPE: XR lumbar spine 2 or 3V DATE OF EXAM: 08/25/2024 1:41 PM COMPARISON: None. CLINICAL INDICATION: Male, 48 years old with history of fall pain bruising, pain TECHNIQUE: 3 view(s) obtained. FINDINGS: There is narrowing of the L4-5 disc height. Mild diffuse narrowing is present L2-3 and L1-2. There ar e 5 lumbar-type vertebral bodies. Pedicles are intact. Mild scoliosis with convexity to the left is p resent. IMPRESSION: 1. Mild degenerative disc changes and scoliosis discussed above [facility], , 08/25/2024 2:12 PM
--- NOTE | 2024-08-25 14:16 | XR ---
EXAMINATION TYPE: XR chest 2V DATE OF EXAM: 08/25/2024 1:41 PM COMPARISON: None. CLINICAL INDICATION: Male, 48 years old with history of fall pain bruising, TECHNIQUE: XR chest 2V view(s) obtained. FINDINGS: The heart size is normal. The pulmonary vasculature is normal. The lungs are clear. IMPRESSION: 1. No acute pulmonary process. [facility], , 08/25/2024 2:13 PM
--- NOTE | 2024-08-25 14:17 | XR ---
EXAMINATION TYPE: XR elbow complete RT DATE OF EXAM: 08/25/2024 1:41 PM COMPARISON: 03/05/2024 CLINICAL INDICATION: Male, 48 years old with history of fall pin bruising, pain TECHNIQUE: 3 view(s) obtained. FINDINGS: No acute fracture or dislocation is evident. Radius aligns normally with the humerus. Anterior fat pa d is normal. No elevation of posterior fat pad is evident. Soft tissues are normal. Follow up exams can be performed 7-10 days from acute trauma for continued pain. IMPRESSION: 1. No acute osseous abnormality right elbow [facility], , 08/25/2024 2:14 PM
--- NOTE | 2024-08-25 14:18 | XR ---
EXAMINATION TYPE: XR ribs LT DATE OF EXAM: 08/25/2024 1:41 PM COMPARISON: None. CLINICAL INDICATION: Male, 48 years old with history of fall pin bruising, pain TECHNIQUE: 2 view(s) obtained. FINDINGS: No acute rib fractures are evident. There is an old left fifth rib fracture. No pneumothorax is evide nt. Follow up exams can be performed 7-10 days from acute trauma for continued pain. IMPRESSION: 1. No acute osseous abnormality left [facility], , 08/25/2024 2:16 PM
[2024-08-25] MEDS: MORPHINE SULFATE 4 MG/ML SYRINGE IM STA (14:41)
[2024-08-25] MEDS: HYDROmorphone 1 MG/ML 1 ML SYRINGE IM STA ×2 (16:48→20:23)
[2024-08-25] MEDS: KETOROLAC 15 MG/ML 1 ML VIAL IM STA (16:49)
--- NOTE | 2024-08-25 18:32 | CT ---
EXAMINATION TYPE: CT ChestAbdPelvis wo con CT DLP: 690.7 mGycm, Automated exposure control for dose reduction was used. DATE OF EXAM: 08/25/2024 6:09 PM COMPARISON: CT abdomen/pelvis 07/10/2017. Chest x-ray 08/25/2024.. CLINICAL INDICATION:Male, 48 years old with history of fall, intractable pain; [facility], fell/pain Technique: CT ChestAbdPelvis wo con; Multiple axial images were obtained. Two-dimensional coronal and sagittal reconstructions were obtained. Contrast used: mL of , Oral contrast used: without Oral Contrast Findings: CHEST: LUNGS/ PLEURA: No focal consolidation, pneumothorax or pleural effusion. AIRWAY: Patent and unremarkable. HEART: Size within normal limits.Mild coronary artery atherosclerosis present MEDIASTINUM: Few nonenlarged lymph nodes are seen gross evidence of adenopathy. VASCULATURE: No aortic aneurysm. Main pulmonary artery is mildly dilated measuring up to 3.3 cm in t ransverse dimension MUSCULOSKELETAL: No acute osseous abnormalities. SOFT TISSUES/LYMPH NODES: Unremarkable. LOWER NECK: No significant findings. ABDOMEN: ABDOMEN LIVER: Few subcentimeter hypoattenuating foci are seen within the liver, which are too small to accur ately characterize. GALLBLADDER AND BILE DUCTS: Unremarkable. PANCREAS: Unremarkable. SPLEEN: Unremarkable. ADRENAL GLANDS: Unremarkable. KIDNEYS AND URETERS: No evidence of hydronephrosis or renal calculus. The ureters are unremarkable. PELVIS BLADDER: Incompletely distended with limited visualization. REPRODUCTIVE: Unremarkable. ABDOMEN & PELVIS STOMACH AND BOWEL: Stomach is grossly unremarkable. Small bowel is of normal caliber. There are multi ple colonic diverticula seen without associated fat stranding. No evidence of bowel obstruction. PERITONEUM: No evidence of pneumoperitoneum or free fluid. VASCULATURE: No evidence of aortic aneurysm. MUSCULOSKELETAL: No acute osseous abnormalities LYMPH NODES: No gross evidence for lymphadenopathy. SOFT TISSUE/ABDOMINAL WALL: Tiny fat filled umbilical hernia. IMPRESSION: 1. No acute intrathoracic/abdomen/pelvis process or acute osseous abnormality. 2. Mildly enlarged main pulmonary artery can be seen in the context of pulmonary arterial hypertensio n. 3. Colonic diverticulosis. [facility], , 08/25/2024 6:29 PM
--- NOTE | 2024-08-25 20:25 | ED ---
Fall HPI - General Chief Complaint: Fall Stated Complaint: fall, back and arm pain Time Seen by Provider: 08/25/24 13:05 Source: patient Mode of arrival: ambulatory - History of Present Illness Initial Comments: 48-year-old male presents emergency department reporting right elbow pain, left flank and chest wall pain after a fall. Patient states that he slipped on 1 s tep and fell landing on his right elbow. Has had considerable pain in his left chest wall. States he has painful breathing. He has not taken anything for the pain. Pain appears to be getting worse and therefore patient presents for imaging. He has previously had a collapsed lung due to trauma and is worried for similar. Patient denies any head injury. No neck pain. No numbness, tingling or weakness in his extremities. He has been able to ambulate. Patient is not on any blood thinners. Denies any changes in his bowel or bladder habits. No other alleviating, precipitating or modifying factors - Related Data Previous Rx's Medication Instructions Recorded HYDROcodone/APAP 5-325MG [[place] 1 tab PO Q6HR PRN 3 Days #12 tab 07/17/21 5-325] Lidocaine 5% Patch [Lidoderm 5% 1 patch TOPICAL DAILY PRN 7 Days 07/17/21 Patch] #7 patch methocarbamoL [Robaxin-750] 750 mg PO BID PRN 7 Days #14 tablet 07/17/21 predniSONE [Deltasone] 40 mg PO DAILY #12 tab 12/12/21 Cyclobenzaprine [Flexeril] 10 mg PO TID #20 tab 03/13/22 predniSONE [Deltasone] 40 mg PO DAILY #8 tab 03/13/22 Ibuprofen [Motrin] 800 mg PO Q8HR PRN #30 tab 02/19/23 HYDROcodone/APAP 10-325MG [[place] 1 tab PO Q4HR PRN #18 tab 08/25/24 10-325] Lidocaine 5% Patch [Lidoderm] 1 patch TOPICAL DAILY #30 patch 08/25/24 Allergies Allergy/AdvReac Type Severity Reaction Status Date / Time No Known Allergies Allergy Verified 02/19/23 14:30 Review of Systems ROS Statement: Those systems with pertinent positive or pertinent negative responses have been documented in the HPI. ROS Other: All systems not noted in ROS Statement are negative. Past Medical History Past Medical History: GERD/Reflux Additional Past Medical History / Comment(s): Traumatic pneumothorax History of Any Multi-Drug Resistant Organisms: None Reported Additional Past Surgical History / Comment(s): Right sided chest tube; thoravent, polyp removal on pancreas Past Anesthesia/Blood Transfusion Reactions: No Reported Reaction Past Psychological History: No Psychological Hx Reported Smoking Status: Current every day smoker Past Alcohol Use History: Occasional Past Drug Use History: None Reported - Past Family History Mother Family Medical History: Cancer Father Family Medical History: Cancer General Exam Limitations: no limitations General appearance: alert, in no apparent distress Head exam: Present: atraumatic, normocephalic, normal inspection Eye exam: Present: normal appearance, PERRL, EOMI. Absent: scleral icterus, conjunctival injection, periorbital swelling ENT exam: Present: normal exam, mucous membranes moist Neck exam: Present: normal inspection. Absent: tenderness, meningismus, lymphadenopathy Respiratory exam: Present: normal lung sounds bilaterally, chest wall tenderness (To palpation of the left flank and chest wall). Absent: respiratory distress, wheezes, rales, rhonchi, stridor Cardiovascular Exam: Present: regular rate, normal rhythm, normal heart sounds. Absent: systolic murmur, diastolic murmur, rubs, gallop, clicks GI/Abdominal exam: Present: soft, normal bowel sounds. Absent: distended, tenderness, guarding, rebound, rigid Extremities exam: Present: normal inspection, full ROM, normal capillary refill, other (Full range of motion of the bilateral elbows). Absent: tenderness, pedal edema, joint swelling, calf tenderness Back exam: Present: normal inspection Neurological exam: Present: alert, oriented X3, CN II-XII intact Psychiatric exam: Present: normal affect, normal mood Skin exam: Present: warm, dry, normal color, abrasion (Small, less than 1 cm over the right elbow olecranon process. No signs of infection). Absent: rash Course Vital Signs 08/25/24 08/25/24 13:00 20:55 Temperature 98 F Pulse Rate 80 65 Respiratory 20 18 Rate Blood Pressure 140/92 155/94 O2 Sat by Pulse 98 99 Oximetry Medical Decision Making - Medical Decision Making Was pt. sent in by a medical professional or institution (, PA, CONSERVATION SCIENCE OFFICER, urgent care, hospital, or [place] health care facility...) When possible be specific @ -No Did you speak to anyone other than the patient for history (EMS, parent, family, police, friend...)? What history was obtained from this source @ -No Did you review nursing and triage notes (agree or disagree)? Why? @ -I reviewed and agree with nursing and triage notes Were old charts reviewed (outside hosp., previous admission, EMS record, old EKG, old radiological studies, urgent care reports/EKG's, [place] health care facility records)? Report findings @ -No old charts were reviewed Differential Diagnosis (chest pain, altered mental status, abdominal pain women, abdominal pain men, vaginal bleeding, weakness, fever, dyspnea, syncope, headache, dizziness, GI bleed, back pain, seizure, CVA, palpatations, mental health, musculoskeletal)? @ -Differential Musculoskeletal Muscular strain, contusion, ligament sprain, fracture, arthritis, septic arthritis, bursitis, cellulitis, muscle spasm, nerve compression, DVT, arterial occlusion, herpes zoster, electrolyte abnormality, tumor.... This is not meant to be in all inclusive list EKG interpreted by me (3pts min.). @ -Not done X-rays interpreted by me (1pt min.). @ -Yes and demonstrates no fractures CT interpreted by me (1pt min.). @ -Yes and demonstrates no acute process U/S interpreted by me (1pt. min.). @ -None done What testing was considered but not performed or refused? (CT, X-rays, U/S, labs)? Why? @ -None What meds were considered but not given or refused? Why? @ -None Did you discuss the management of the patient with other professionals (professionals i.e. , PA, CONSERVATION SCIENCE OFFICER, lab, RT, psych nurse, social and human services assistant, tank calibrator, teacher, workplace rehabilitation officer, lead case manager)? Give summary @ -No Was smoking cessation discussed for >3mins.? @ -No Was critical care preformed (if so, how long)? @ -No Were there social determinants of health that impacted care today? How? (Homelessness, low income, unemployed, alcoholism, drug addiction, transportation, low edu. Level, literacy, decrease access to med. care, fci, rehab)? @ -No Was there de-escalation of care discussed even if they declined (Discuss DNR or withdrawal of care, Hospice)? DNR status @ -No What co-morbidities impacted this encounter? (DM, HTN, Smoking, COPD, CAD, Cancer, CVA, ARF, Chemo, Hep., AIDS, mental health diagnosis, sleep apnea, morbid obesity)? @ -None Was patient admitted / discharged? Hospital course, mention meds given and route, prescriptions, significant lab abnormalities, going to OR and other pertinent info. @ -Upon arrival patient seen and evaluated in bed 301. Thorough history and physical exam was performed. Patient was administered pain medications and x- rays were ordered. Results are discussed patient. Patient is adamant that something is wrong and is requesting further imaging to look for other injuries. I did discuss performing a CT scan for which the patient was adamant that he received. CT demonstrates no additional findings. Results are discussed with patient. Did discuss treatment for a chest wall strain. This will include pain medications and lidocaine patches. Patient will be given a work note. No heavy lifting or bending. Instructed to use heating pads. He will follow-up with his doctor. May need more imaging to include an MRI if his pain continues. Patient understood this. He was given written and verbal discharge instructions and discharged home in stable condition Undiagnosed new problem with uncertain prognosis? @ -No Drug Therapy requiring intensive monitoring for toxicity (Heparin, Nitro, Insulin, Cardizem)? @ -No Were any procedures done? @ -No Diagnosis/symptom? @ -Acute fall, acute left chest wall pain, acute right elbow pain Acute, or Chronic, or Acute on Chronic? @ -Acute Uncomplicated (without systemic symptoms) or Complicated (systemic symptoms)? @ -Complicated Side effects of treatment? @ -No Exacerbation, Progression, or Severe Exacerbation? @ -No Poses a threat to life or bodily function? How? (Chest pain, [place], [place], pneumonia, PE, COPD, DKA, ARF, appy, cholecystitis, CVA, Diverticulitis, Homicidal, Suicidal, threat to staff... and all critical care pts) @ -No Disposition Clinical Impression: Fall, Right elbow pain, Chest wall contusion Disposition: HOME SELF-CARE Condition: Stable Instructions (If sedation given, give patient instructions): Chest Wall Pain (ED) Additional Instructions: Please follow-up with the residency clinic for reevaluation of your injuries. You may need an MRI. Return to the emergency part for any new or worsening symptoms Prescriptions: Lidocaine 5% Patch [Lidoderm] 1 patch TOPICAL DAILY #30 patch HYDROcodone/APAP 10-325MG [[place] 10-325] 1 tab PO Q4HR PRN #18 tab PRN Reason: pain Is patient prescribed a controlled substance at d/c from ED?: Yes When asked, does pt state using other controlled substances?: No If prescribed controlled substance>3 days was MAPS reviewed?: Prescribed <3 Days If opioid is for acute pain is fill amount 7 days or less?: Yes Referrals: Janna Roberts MD [RESIDENT] - 1-2 days Forms: PH Area PCPs Time of Disposition: 20:42
[2024-08-25 21:06] VITALS: BP 155/94; PULSE 65; RESP 18
== END 2024-08-25 20:55 | disposition home or self-care (01) ==
LOC: EC 12:47
DX: S20.212A Contusion of left front wall of thorax, initial encounter (principal); S50.311A Abrasion of right elbow, initial encounter; F17.200 Nicotine dependence, unspecified, uncomplicated; W01.0XXA Fall on same level from slipping, tripping and stumbling without subsequent striking against object, initial encounter
CPT/HCPCS: 72100; 71100; 73080; 71046; 71250; 74176; 99284; 96372 ×4; J2270; J1171; J1885

== ENCOUNTER 2024-12-19 19:26 | Emergency (ER) | payer OTHER ==
[2024-12-19 19:34] VITALS: BP 163/111; PULSE 87; RESP 18; TEMP 97.8
[2024-12-19 19:52] LABS: Glucose,Whole Blood 90 mg/dL (70-110)
--- NOTE | 2024-12-19 19:53 | ED ---
Fall HPI - General Chief Complaint: Fall Stated Complaint: Fall-L Shoulder pain Time Seen by Provider: 12/19/24 19:36 Source: patient Mode of arrival: ambulatory - History of Present Illness Initial Comments: This patient is a 49-year-old man who arrives to have evaluation after falling from a ladder over 12 feet high. The patient states that he landed on his left shoulder. Patient states that this is same shoulder that he had surgically repaired approximately 8 or 9 months ago. The patient denies loss of sensation. He states he is not able to move the shoulder without pain. Patient also has some pain at the left costal margin related to the fall. Denies head or neck injury. He does admit to having a couple of beers tonight. 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 Witnessed: yes, by family Place Fall Occurred: home Loss of Consciousness: none Prolonged Down Time?: no Symptoms Prior to Fall: none Location - Extremities: Left: Shoulder Severity: severe Quality: sharp - Related Data Previous Rx's Medication Instructions Recorded HYDROcodone/APAP 5-325MG [[place] 1 tab PO Q6HR PRN 3 Days #12 tab 07/17/21 5-325] Lidocaine 5% Patch [Lidoderm 5% 1 patch TOPICAL DAILY PRN 7 Days 07/17/21 Patch] #7 patch methocarbamoL [Robaxin-750] 750 mg PO BID PRN 7 Days #14 tablet 07/17/21 predniSONE [Deltasone] 40 mg PO DAILY #12 tab 12/12/21 Cyclobenzaprine [Flexeril] 10 mg PO TID #20 tab 03/13/22 predniSONE [Deltasone] 40 mg PO DAILY #8 tab 03/13/22 Ibuprofen [Motrin] 800 mg PO Q8HR PRN #30 tab 02/19/23 HYDROcodone/APAP 10-325MG [[place] 1 tab PO Q4HR PRN #18 tab 08/25/24 10-325] Lidocaine 5% Patch [Lidoderm] 1 patch TOPICAL DAILY #30 patch 08/25/24 HYDROcodone/APAP 7.5-325MG [[place] 1 tab PO Q4H PRN 3 Days #18 tab 12/19/24 7.5-325] Allergies Allergy/AdvReac Type Severity Reaction Status Date / Time No Known Allergies Allergy Verified 12/19/24 19:32 Review of Systems ROS Statement: Those systems with pertinent positive or pertinent negative responses have been documented in the HPI. ROS Other: All systems not noted in ROS Statement are negative. Constitutional: Denies: fever, chills, weakness Eyes: Denies: vision change ENT: Denies: epistaxis Respiratory: Denies: cough, dyspnea Cardiovascular: Denies: chest pain, palpitations, edema, syncope Gastrointestinal: Reports: as per HPI, abdominal pain. Denies: nausea, vomiting, diarrhea, melena, hematochezia Genitourinary: Denies: dysuria, hematuria Musculoskeletal: Reports: joint swelling, arthralgia. Denies: back pain Skin: Denies: rash, lesions Neurological: Denies: headache, weakness, numbness, paresthesias, confusion Hematological/Lymphatic: Denies: easy bleeding Past Medical History Past Medical History: GERD/Reflux Additional Past Medical History / Comment(s): Traumatic pneumothorax History of Any Multi-Drug Resistant Organisms: None Reported Additional Past Surgical History / Comment(s): Right sided chest tube; thorave nt, polyp removal on pancreas Past Anesthesia/Blood Transfusion Reactions: No Reported Reaction Past Psychological History: No Psychological Hx Reported Smoking Status: Current every day smoker Past Alcohol Use History: Occasional Past Drug Use History: Marijuana - Past Family History Mother Family Medical History: Cancer Father Family Medical History: Cancer General Exam Limitations: no limitations General appearance: alert, in no apparent distress Head exam: Present: atraumatic, normocephalic Eye exam: Present: normal appearance. Absent: scleral icterus, conjunctival injection Neck exam: Present: normal inspection, full ROM. Absent: tenderness Respiratory exam: Present: normal lung sounds bilaterally. Absent: respiratory distress, wheezes, rales, rhonchi, stridor, chest wall tenderness, accessory muscle use Cardiovascular Exam: Present: regular rate, normal rhythm, normal heart sounds. Absent: systolic murmur, diastolic murmur, rubs, gallop GI/Abdominal exam: Present: soft. Absent: distended, tenderness, guarding, rebound, rigid, organomegaly, mass, hernia Extremities exam: Present: normal inspection, normal capillary refill. Absent: pedal edema, calf tenderness Back exam: Present: normal inspection. Absent: CVA tenderness (R), CVA tenderness (L) Neurological exam: Present: alert Skin exam: Present: warm, dry, intact, normal color. Absent: rash Course Vital Signs 12/19/24 19:32 Temperature 97.8 F Pulse Rate 87 Respiratory 18 Rate Blood Pressure 163/111 O2 Sat by Pulse 99 Oximetry Medical Decision Making - Medical Decision Making The patient had chest x-ray that I interpreted as negative for acute infiltrate, pneumothorax, congestive heart failure The patient had left shoulder x-ray that I interpreted as negative for fracture or dislocation The patient had left scapula x-ray that I interpreted as negative for acute fracture The patient had CT scan of the brain and C-spine that I interpreted as negative for acute intracranial hemorrhage, mass effect or midline shift. The patient had CT scan of the abdomen and pelvis that I interpreted as negative for acute surgical condition Was pt. sent in by a medical professional or institution (, PA, PATTERN MAKER PROGRAMER, urgent care, hospital, or usp...) When possible be specific @ -[No] Did you speak to anyone other than the patient for history (EMS, parent, family, police, friend...)? What history was obtained from this source @ -[No] Did you review nursing and triage notes (agree or disagree)? Why? @ -[I reviewed and agree with nursing and triage notes] Were old charts reviewed (outside hosp., previous admission, EMS record, old EKG, old radiological studies, urgent care reports/EKG's, usp records)? Report findings @ -[No old charts were reviewed] Differential Diagnosis (chest pain, altered mental status, abdominal pain women, abdominal pain men, vaginal bleeding, weakness, fever, dyspnea, syncope, headache, dizziness, GI bleed, back pain, seizure, CVA, palpatations, mental health, musculoskeletal)? @ -Differential Musculoskeletal Muscular strain, contusion, ligament sprain, fracture, arthritis, septic arthritis, bursitis, cellulitis, muscle spasm, nerve compression, DVT, arterial occlusion, herpes zoster, electrolyte abnormality, tumor.... This is not meant to be in all inclusive list EKG interpreted by me (3pts min.). @ -[I interpreted as above] X-rays interpreted by me (1pt min.). @ -[I interpreted as above CT interpreted by me (1pt min.). @ -[I interpreted as above U/S interpreted by me (1pt. min.). @ -[None done] What testing was considered but not performed or refused? (CT, X-rays, U/S, labs)? Why? @ -[None] What meds were considered but not given or refused? Why? @ -[None] Did you discuss the management of the patient with other professionals (professionals i.e. , PA, PATTERN MAKER PROGRAMER, lab, RT, psych nurse, social group worker, airframe design engineer, teacher, commercial loan collection officer, field nurse case manager)? Give summary @ -[No] Was smoking cessation discussed for >3mins.? @ -[No] Was critical care preformed (if so, how long)? @ -[No] Were there social determinants of health that impacted care today? How? (Homelessness, low income, unemployed, alcoholism, drug addiction, transportation, low edu. Level, literacy, decrease access to med. care, prison, rehab)? @ -[No] Was there de-escalation of care discussed even if they declined (Discuss DNR or withdrawal of care, Hospice)? DNR status @ -[No] What co-morbidities impacted this encounter? (DM, HTN, Smoking, COPD, CAD, Cancer, CVA, ARF, Chemo, Hep., AIDS, mental health diagnosis, sleep apnea, morbid obesity)? @ -[Previous shoulder surgery Was patient admitted / discharged? Hospital course, mention meds given and route, prescriptions, significant lab abnormalities, going to OR and other pertinent info. @ -[Patient is 49-year-old man who arrives to have evaluation after significant fall mechanism for injury. The patient is worked up as a trauma category 2. The initial workup includes CT scan of the brain and C-spine as the patient is intoxicated and there is risk of missing injury. For same reason the patient had CT scan of the abdomen and pelvis that is also negative. On reevaluation the patient does continue to have some pain to the left shoulder though no apparent injury on films. Will have the patient follow with orthopedic surgery for further soft tissue evaluation. Undiagnosed new problem with uncertain prognosis? @ -[No] Drug Therapy requiring intensive monitoring for toxicity (Heparin, Nitro, Insulin, Cardizem)? @ -[No] Were any procedures done? @ -[No] Diagnosis/symptom? @ -[Acute fall injury Left shoulder injury Acute, or Chronic, or Acute on Chronic? @ -[Acute Uncomplicated (without systemic symptoms) or Complicated (systemic symptoms)? @ -[Uncomplicated Side effects of treatment? @ -[No] Exacerbation, Progression, or Severe Exacerbation? @ -[No] Poses a threat to life or bodily function? How? (Chest pain, USA, VT, pneumonia, PE, COPD, DKA, ARF, appy, cholecystitis, CVA, Diverticulitis, Homicidal, Suicidal, threat to staff... and all critical care pts) @ -[No] All treatments are based on ideal body weight as in ED triage - Lab Data Result diagrams: 12/19/24 19:47 12/19/24 19:47 Lab Results 12/19/24 12/19/24 12/19/24 Range/Units 19:47 19:47 19:47 WBC 12.17 H (4.50-10.00) 10*3/uL RBC 4.80 (4.40-5.60) 10*6/uL Hgb 15.4 (13.0-17.0) g/dL Hct 44.0 (39.6-50.0) % MCV 91.7 (80.0-97.0) fL MCH 32.1 H (27.0-32.0) pg MCHC 35.0 (32.0-37.0) g/dL Plt Count 318 (140-440) 10*3/uL MPV 8.9 L (9.5-12.2) fL Immature Gran % (Auto) 0.2 % Neutrophils % 56.6 % Lymphocytes % 32.0 % Monocytes % 6.0 % Eosinophils % 4.0 % Basophils % 1.2 % Immature Gran # 0.03 (0.00-0.04) 10*3/uL Neutrophils # 6.89 (1.80-7.70) 10*3/uL Lymphocytes # 3.89 (0.90-5.00) 10*3/uL Monocytes # 0.73 (0.20-1.00) 10*3/uL Eosinophils # 0.49 H (0.04-0.35) 10*3/uL Basophils # 0.14 H (0.00-0.10) 10*3/uL PT 9.8 L (10.0-12.5) sec INR 0.9 (<1.2) APTT 22.6 (22.0-30.0) sec Sodium 142 (137-145) mmol/L Potassium 4.5 (3.5-5.1) mmol/L Chloride 107 (98-107) mmol/L Carbon Dioxide 24 (22-30) mmol/L Anion Gap 11 mmol/L BUN 17 (9-20) mg/dL Creatinine 0.84 (0.66-1.25) mg/dL Est GFR (CKD-EPI)AfAm >90 (>60 ml/min/1.73 sqM) Est GFR (CKD-EPI)NonAf >90 (>60 ml/min/1.73 sqM) Glucose 88 (74-99) mg/dL POC Glucose (mg/dL) (70-110) mg/dL POC Glu Cost Accounting Clerk ID Plasma Lactic Acid [place] (0.7-2.0) mmol/L Calcium 10.1 (8.4-10.2) mg/dL Total Bilirubin 0.6 (0.2-1.3) mg/dL AST 31 (17-59) U/L ALT 22 (4-49) U/L Alkaline Phosphatase 46 (38-126) U/L Troponin I (0.000-0.034) ng/mL Total Protein 7.7 (6.3-8.2) g/dL Albumin 4.8 (3.5-5.0) g/dL Urine Opiates Screen (NotDetected) Ur Oxycodone Screen (NotDetected) Urine Methadone Screen (NotDetected) Ur Barbiturates Screen (NotDetected) U Tricyclic Antidepress (NotDetected) Ur Phencyclidine Scrn (NotDetected) Ur Amphetamines Screen (NotDetected) U Methamphetamines Scrn (NotDetected) U Benzodiazepines Scrn (NotDetected) Urine Cocaine Screen (NotDetected) U Marijuana (THC) Screen (NotDetected) Serum Alcohol 113 mg/dL Blood Type Blood Type Recheck Bld Type Recheck Status Antibody Screen Spec Expiration Date 12/19/24 12/19/24 12/19/24 Range/Units 19:47 19:47 19:47 WBC (4.50-10.00) 10*3/uL RBC (4.40-5.60) 10*6/uL Hgb (13.0-17.0) g/dL Hct (39.6-50.0) % MCV (80.0-97.0) fL MCH (27.0-32.0) pg MCHC (32.0-37.0) g/dL Plt Count (140-440) 10*3/uL MPV (9.5-12.2) fL Immature Gran % (Auto) % Neutrophils % % Lymphocytes % % Monocytes % % Eosinophils % % Basophils % % Immature Gran # (0.00-0.04) 10*3/uL Neutrophils # (1.80-7.70) 10*3/uL Lymphocytes # (0.90-5.00) 10*3/uL Monocytes # (0.20-1.00) 10*3/uL Eosinophils # (0.04-0.35) 10*3/uL Basophils # (0.00-0.10) 10*3/uL PT (10.0-12.5) sec INR (<1.2) APTT (22.0-30.0) sec Sodium (137-145) mmol/L Potassium (3.5-5.1) mmol/L Chloride (98-107) mmol/L Carbon Dioxide (22-30) mmol/L Anion Gap mmol/L BUN (9-20) mg/dL Creatinine (0.66-1.25) mg/dL Est GFR (CKD-EPI)AfAm (>60 ml/min/1.73 sqM) Est GFR (CKD-EPI)NonAf (>60 ml/min/1.73 sqM) Glucose (74-99) mg/dL POC Glucose (mg/dL) (70-110) mg/dL POC Glu Cost Accounting Clerk ID Plasma Lactic Acid [place] 1.9 (0.7-2.0) mmol/L Calcium (8.4-10.2) mg/dL Total Bilirubin (0.2-1.3) mg/dL AST (17-59) U/L ALT (4-49) U/L Alkaline Phosphatase (38-126) U/L Troponin I <0.012 (0.000-0.034) ng/mL Total Protein (6.3-8.2) g/dL Albumin (3.5-5.0) g/dL Urine Opiates Screen (NotDetected) Ur Oxycodone Screen (NotDetected) Urine Methadone Screen (NotDetected) Ur Barbiturates Screen (NotDetected) U Tricyclic Antidepress (NotDetected) Ur Phencyclidine Scrn (NotDetected) Ur Amphetamines Screen (NotDetected) U Methamphetamines Scrn (NotDetected) U Benzodiazepines Scrn (NotDetected) Urine Cocaine Screen (NotDetected) U Marijuana (THC) Screen (NotDetected) Serum Alcohol mg/dL Blood Type A Positive Blood Type Recheck A Pos Bld Type Recheck Status No Antibody Screen NEGATIVE Spec Expiration Date 12/22/2024 - 234612/19/24 12/19/24 Range/Units 19:50 21:07 WBC (4.50-10.00) 10*3/uL RBC (4.40-5.60) 10*6/uL Hgb (13.0-17.0) g/dL Hct (39.6-50.0) % MCV (80.0-97.0) fL MCH (27.0-32.0) pg MCHC (32.0-37.0) g/dL Plt Count (140-440) 10*3/uL MPV (9.5-12.2) fL Immature Gran % (Auto) % Neutrophils % % Lymphocytes % % Monocytes % % Eosinophils % % Basophils % % Immature Gran # (0.00-0.04) 10*3/uL Neutrophils # (1.80-7.70) 10*3/uL Lymphocytes # (0.90-5.00) 10*3/uL Monocytes # (0.20-1.00) 10*3/uL Eosinophils # (0.04-0.35) 10*3/uL Basophils # (0.00-0.10) 10*3/uL PT (10.0-12.5) sec INR (<1.2) APTT (22.0-30.0) sec Sodium (137-145) mmol/L Potassium (3.5-5.1) mmol/L Chloride (98-107) mmol/L Carbon Dioxide (22-30) mmol/L Anion Gap mmol/L BUN (9-20) mg/dL Creatinine (0.66-1.25) mg/dL Est GFR (CKD-EPI)AfAm (>60 ml/min/1.73 sqM) Est GFR (CKD-EPI)NonAf (>60 ml/min/1.73 sqM) Glucose (74-99) mg/dL POC Glucose (mg/dL) 90 (70-110) mg/dL POC Glu Cost Accounting Clerk ID Sofi Trinh Plasma Lactic Acid [place] (0.7-2.0) mmol/L Calcium (8.4-10.2) mg/dL Total Bilirubin (0.2-1.3) mg/dL AST (17-59) U/L ALT (4-49) U/L Alkaline Phosphatase (38-126) U/L Troponin I (0.000-0.034) ng/mL Total Protein (6.3-8.2) g/dL Albumin (3.5-5.0) g/dL Urine Opiates Screen Detected H (NotDetected) Ur Oxycodone Screen Not Detected (NotDetected) Urine Methadone Screen Not Detected (NotDetected) Ur Barbiturates Screen Not Detected (NotDetected) U Tricyclic Antidepress Not Detected (NotDetected) Ur Phencyclidine Scrn Not Detected (NotDetected) Ur Amphetamines Screen Not Detected (NotDetected) U Methamphetamines Scrn Not Detected (NotDetected) U Benzodiazepines Scrn Not Detected (NotDetected) Urine Cocaine Screen Not Detected (NotDetected) U Marijuana (THC) Screen Detected H (NotDetected) Serum Alcohol mg/dL Blood Type Blood Type Recheck Bld Type Recheck Status Antibody Screen Spec Expiration Date - EKG Data -: EKG Interpreted by [place] EKG shows normal: sinus rhythm, axis (Normal), intervals (Normal), QRS complexes (Normal), ST-T waves (Normal) Rate: normal (Rate 90 bpm) Disposition Clinical Impression: Fall, Shoulder injury Disposition: HOME SELF-CARE Condition: Good Instructions (If sedation given, give patient instructions): Rotator Cuff Injury (ED) Prescriptions: HYDROcodone/APAP 7.5-325MG [[place] 7.5-325] 1 tab PO Q4H PRN 3 Days #18 tab PRN Reason: Pain Is patient prescribed a controlled substance at d/c from ED?: Yes When asked, does pt state using other controlled substances?: No If prescribed controlled substance>3 days was MAPS reviewed?: Prescribed <3 Days If opioid is for acute pain is fill amount 7 days or less?: Yes If Rx opioid, was Start Talking consent form obtained?: Yes Referrals: None,Stated [REFERRING] - 1-2 days Miguelangel Doty MD [STAFF PHYSICIAN] - 1-2 days
[2024-12-19 20:02] LABS: Basophils # (A) 0.14 10*3/uL (0.00-0.10); Basophils % (A) 1.2 %; Eosinophils # (A) 0.49 10*3/uL (0.04-0.35); HGB 15.4 g/dL (13.0-17.0); Lymphocytes # (A) 3.89 10*3/uL (0.90-5.00); MCH 32.1 pg (27.0-32.0); MCV 91.7 fL (80.0-97.0); Mean Platelet Volume 8.9 fL (9.5-12.2); Monocytes # (A) 0.73 10*3/uL (0.20-1.00); Neutrophils # (A) 6.89 10*3/uL (1.80-7.70); Neutrophils % (A) 56.6 %; Platelet Count 318 10*3/uL (140-440); RDW 12.6 % (11.5-14.5); WBC 12.17 10*3/uL (4.50-10.00)
--- NOTE | 2024-12-19 20:09 | XR ---
EXAMINATION TYPE: XR chest 1V portable DATE OF EXAM: 12/19/2024 8:00 PM COMPARISON: 08/25/2024 CLINICAL INDICATION: Male, 49 years old with history of fall injury, TECHNIQUE: XR chest 1V portable view(s) obtained. FINDINGS: The heart size is normal. The pulmonary vasculature is normal. The lungs are clear. IMPRESSION: 1. No acute pulmonary process. [facility], , 12/19/2024 8:07 PM
--- NOTE | 2024-12-19 20:11 | XR ---
EXAMINATION TYPE: XR shoulder complete LT DATE OF EXAM: 12/19/2024 8:00 PM COMPARISON: None. CLINICAL INDICATION: Male, 49 years old with history of fall injury, Pain TECHNIQUE: XR shoulder complete LT view(s) obtained. FINDINGS: The humeral head articulates with the glenoid. The acromio-clavicular junction is normal. No acute fractures or dislocations are evident. If there is clinical concern for acromioclavicular ju nction separation, without with weight imaging could be performed. A follow up study can be performed 7-10 days from acute trauma for continued pain. MRI can be perfor med if soft tissue evaluation would be of benefit. IMPRESSION: 1. No acute osseous left shoulder abnormality. [facility], , 12/19/2024 8:09 PM
[2024-12-19 20:19] LABS: INR 0.9 (<1.2); Partial Thromboplastin Time 22.6 sec (22.0-30.0); Prothrombin Time 9.8 sec (10.0-12.5)
[2024-12-19 20:21] LABS: ALT 22 U/L (4-49); African American GFR (CKD) >90 (>60 ml/min/1.73 sqM); Albumin 4.8 g/dL (3.5-5.0); Anion Gap 11 mmol/L; Blood Urea Nitrogen 17 mg/dL (9-20); Calcium 10.1 mg/dL (8.4-10.2); Carbon Dioxide 24 mmol/L (22-30); Chloride 107 mmol/L (98-107); Glucose 88 mg/dL (74-99); Non-African American GFR(CKD) >90 (>60 ml/min/1.73 sqM); Sodium 142 mmol/L (137-145); Total Bilirubin 0.6 mg/dL (0.2-1.3); Total Protein 7.7 g/dL (6.3-8.2)
[2024-12-19] MEDS: HYDROmorphone 1 MG/ML 1 ML SYRINGE IVP STA ×2 (20:29→21:22)
[2024-12-19 20:34] LABS: AST 31 U/L (17-59); Potassium 4.5 mmol/L (3.5-5.1)
[2024-12-19 20:35] LABS: Alkaline Phosphatase 46 U/L (38-126)
[2024-12-19 20:36] LABS: Alcohol 113 mg/dL
--- NOTE | 2024-12-19 20:43 | CT ---
EXAMINATION TYPE: CT brain davidine wo con DATE OF EXAM: 12/19/2024 8:28 PM COMPARISON: 02/05/2016 CLINICAL INDICATION: Male, 49 years old with history of fall injury, fell off a 10 ft ladder, level 2 trauma, pain TECHNIQUE: CT of the brain is performed utilizing 3 mm thick sections through the posterior fossa and 3 mm thick sections through the remaining calvarium. Study is performed within 24 hours of arrival to the hospital. Contrast used: mL of , (none if empty) CT DLP: 1480.7 mGycm, Automated exposure control for dose reduction was used. FINDINGS: No abnormal hyperdensity is present to suggest an acute intracranial hemorrhage. No mass lesion is evident. No acute infarcts are evident. Ventricles and sulci are appropriate for the patient age. Mucosal thickening in ethmoid air cells. IMPRESSIONS: 1. No acute intracranial process. Follow-up MRI can be performed as clinically indicated. CT cervical spine. COMPARISON: None TECHNIQUE: CT of the cervical spine is performed in the axial plane at 2 mm thick sections. Reconstr ucted images in the coronal, and sagittal plane are reviewed on the computer. FINDINGS: No acute fractures are evident. Vertebral body alignment is normal. Prevertebral space is normal. Posterior spinal lamellar line is i ntact. Disc heights are preserved. Vertebral body heights are preserved. Endplate spurring is present posteriorly right paracentral at C3 and C4. No significant thecal sac co mpression is evident. Anterior vertebral body spurring is present at C3-4. No neural foraminal stenosis is evident. IMPRESSION: 1. No acute osseous abnormality cervical spine [facility], , 12/19/2024 8:41 PM
--- NOTE | 2024-12-19 20:49 | CT ---
EXAMINATION TYPE: CT abdomen pelvis w con DATE OF EXAM: 12/19/2024 8:29 PM COMPARISON: None. CLINICAL INDICATION: Male, 49 years old with history of fall injury, fell off a 10 ft ladder, level 2 trauma TECHNIQUE: Axial images were obtained from above the diaphragm to the pubic rami in the axial plane a t 5 mm thick sections. Reconstructed images are reviewed on the computer in the coronal plane. CONTRAST: 100 mL of Isovue 300. Study performed without Oral Contrast DLP: mGycm, Automated exposure control for dose reduction was used. FINDINGS: Limited CT sections are obtained the lung bases. The lung bases are clear. CT ABDOMEN: No or lacerations are evident. No free air evident. Liver: Normal Spleen: Normal Pancreas: Normal Adrenal glands: The adrenal glands are normal. Gallbladder: Normal Kidneys: No masses are evident. No hydronephrosis is present. No cysts are present. Delayed images were obtained through the kidneys, which remain unremarkable. Aorta: Vascular calcification is within the aorta. Inferior vena cava: Normal. CT PELVIS: No free air or ascites. No suspicious fluid collections. Loops of bowel within the abdomen and pelvis are normal. This study is without oral contrast limi ts bowel evaluation. Scattered diverticula are present. Appendix: Normal as visualized. Urinary bladder: Normal. Genitourinary structures: Prostate appears prominent Osseous structures: No suspicious lytic or sclerotic lesions. IMPRESSION: 1. Scattered colonic diverticuli. 2. No suspicious acute posttraumatic changes. [facility], , 12/19/2024 8:46 PM
--- NOTE | 2024-12-19 21:26 | XR ---
EXAMINATION TYPE: XR scapula LT DATE OF EXAM: 12/19/2024 9:16 PM COMPARISON: None. CLINICAL INDICATION: Male, 49 years old with history of fall injury, pain fall from ladder TECHNIQUE: 2 view(s) obtained. FINDINGS: Scapula appears intact. Acromioclavicular junction appears normal. Humeral head articulates with the glenoid rate no acute fractures or dislocations evident. Follow up exams can be performed as clinical ly indicated IMPRESSION: 1. Unremarkable 2 view left scapula [facility], , 12/19/2024 9:24 PM
[2024-12-19 21:29] LABS: Amphetamine Screen,Urine Not Detected (NotDetected); Barbiturate Screen,Urine Not Detected (NotDetected); Benzodiazepines Screen,Urine Not Detected (NotDetected); Cocaine Screen,Urine Not Detected (NotDetected); Methadone Screen, Urine Not Detected (NotDetected); Opiate Screen,Urine Detected (NotDetected); Oxycodone Screen, Urine Not Detected (NotDetected); Phencyclidine Screen,Urine Not Detected (NotDetected); Tricyclic Antidepressant,Urine Not Detected (NotDetected); Urn Cannabinoid Scrn Detected (NotDetected)
[2024-12-19] MEDS: HYDROmorphone 0.5 MG/0.5 ML SYRINGE IVP STA (22:14)
== END 2024-12-19 22:15 | disposition home or self-care (01) ==
LOC: EC 19:26
DX: S49.92XA Unspecified injury of left shoulder and upper arm, initial encounter (principal); F17.200 Nicotine dependence, unspecified, uncomplicated; W11.XXXA Fall on and from ladder, initial encounter
CPT/HCPCS: 96374; 96376; 36415; 93005; 86900; 86901; 80053; 83605; 84484; 85025; 85610; 85730; 86850; 80306; 73030; 73010; 71045; 72125; 70450; 74177; 99284; G0480; J1171 ×2; Q9967; 80320; 99285